=== PATIENT | female | born 1995 | race Caucasian/White ===

== ENCOUNTER 2022-09-17 12:40 | Outpatient (OUT) | payer OTHER, SELFPAY ==
--- NOTE | 2022-09-17 12:44 | US_ITS ---
[address] [address] Patient Name: ROSHNI ALEJANDRE MRN: [id number] date: 1995 Sex: F Assigned Patient Location: US Current Patient Location: US Accession/Order Number: [id number] Exam Date: 09/17/2022 12:43 Report Date: 09/17/2022 17:35 At the request of: OTIS THOMPSON Procedure: US OB transvaginal EXAMINATION: US OB transvaginal HISTORY: MISSED PERIOD COMPARISON: No relevant comparison available. FINDINGS: Transvaginal images Muir intrauterine gestation Gestational sac: 3.6 cm, 8 weeks 6 days CRL: 1.7 cm, 8 weeks 1 day Yolk sac: 3.9 mm Heart rate: 160 bpm Cervix: 4.5 cm, closed The uterus is normal, anteverted, anteflexed The ovaries are normal in appearance Clinical age: 8 weeks 1 day Clinical QUINN: 04/28/2023 Ultrasound age: 8 weeks 1 day Ultrasound QUINN: 04/28/2023 IMPRESSION: Viable muir intrauterine gestation measuring 8 weeks 1 day Electronically authenticated by: LEANDRA BUSTOS Date: 09/17/2022 17:35
== END 2022-09-17 12:41 ==
LOC: US 12:40
PROVIDERS: Visit Provider Obstetrics & Gynecology
DX: Z34.91 Encounter for supervision of normal pregnancy, unspecified, first trimester (principal)
CPT/HCPCS: 76817

== ENCOUNTER 2022-10-02 12:41 | Outpatient (OUT) | payer OTHER, SELFPAY ==
[2022-10-02 13:15] LABS: Basophils Percent Auto 0.4 % (0.2-2.0); Eosinophils Absolute Auto 0.1 10^3/uL (0.0-0.7); Eosinophils Percent Auto 1.1 % (0.9-7.0); Hematocrit 38.2 % (36.0-48.0); Hemoglobin 12.6 g/dL (12.0-16.0); Immature Granulocytes Abs Auto 0.02 10^3/uL (0.00-0.03); Immature Granulocytes Pct Auto 0.2 % (0.0-0.5); Mean Corpuscular Hemoglobin 28.2 pg (26.7-34.0); Mean Corpuscular Volume 85.5 fL (81.0-99.0); Mean Platelet Volume 10.1 fL (9.5-13.5); Monocytes Absolute Auto 0.5 10^3/uL (0.3-0.8); Monocytes Percent Auto 5.6 % (1.7-12.0); Neutrophils Absolute Auto 5.6 10^3/uL (1.4-6.5); Neutrophils Percent Auto 68.7 % (43.0-75.0); Platelet Count 202 10^3/uL (150-450); Red Blood Count 4.47 10^6/uL (4.20-5.40); Red Cell Distribution Width 13.2 % (11.0-15.0); White Blood Count 8.2 10^3/uL (4.0-11.0)
[2022-10-02 13:28] LABS: BOX Test Sent Out YES
[2022-10-02 13:34] LABS: Estimated Average Glucose 100 mg/dL; Glycohemoglobin A1C 5.1 % (4.5-6.2)
[2022-10-03 05:07] LABS: HCV Ab Non Reactive (Non Reactive); HIV Ab/p24 Ag Screen Non Reactive (Non Reactive); Rubella Antibodies, IgG 1.16 index (Immune >0.99)
[2022-10-03 06:08] LABS: HBsAg Screen Negative (Negative)
[2022-10-03 10:08] LABS: Rapid Plasma Reagin, Quant Non Reactive (NonRea<1:1)
== END 2022-10-02 12:42 | disposition home or self-care (01) ==
PROVIDERS: Visit Provider Obstetrics & Gynecology
DX: Z34.80 Encounter for supervision of other normal pregnancy, unspecified trimester (principal)
CPT/HCPCS: 36415; 83036; 84443; 85025; 86592; 86762; 86803; 86850; 86900; 86901; 87086; 87340; 87389

== ENCOUNTER 2022-10-08 09:24 | Outpatient (REF) | payer OTHER, SELFPAY | END 2022-10-08 09:25 | disposition home or self-care (01) | LOC: LAB 09:24 | PROVIDERS: Visit Provider Obstetrics & Gynecology | DX: Z34.80 Encounter for supervision of other normal pregnancy, unspecified trimester (principal) | CPT/HCPCS: 87086; 87150; 87186 ==

== ENCOUNTER 2022-11-10 20:00 | Outpatient (REF) | payer OTHER, SELFPAY ==
[2022-11-16 11:08] LABS: Age Gdln ACOG Testing Note (.); IGP, rfx Aptima HPV ASCU Note (.)
== END 2022-11-10 20:01 | disposition home or self-care (01) ==
LOC: LAB 20:00
PROVIDERS: Visit Provider Physician Assistant
DX: Z01.419 Encounter for gynecological examination (general) (routine) without abnormal findings (principal)
CPT/HCPCS: G0145

== ENCOUNTER 2022-12-09 09:32 | Outpatient (OUT) | payer OTHER, SELFPAY ==
--- NOTE | 2022-12-09 09:35 | US_ITS ---
[address] [address] Patient Name: ROSHNI ALEJANDRE MRN: [id number] date: 1995 Sex: F Assigned Patient Location: US Current Patient Location: Accession/Order Number: [id number] Exam Date: 12/09/2022 09:36 Report Date: 12/09/2022 16:46 At the request of: OTIS THOMPSON Procedure: US OB anatomy EXAMINATION: US OB anatomy HISTORY: ANATOMY COMPARISON: No relevant comparison available. TECHNIQUE: Transabdominal sonographic examination was performed for obstetrical and evaluation. FINDINGS: Number: 1 Heart Rate: 169.0 bpm H.B. /min Amniotic Fluid Volume: Subjectively normal position: Breech presentation, longitudinal lie Placental Location: POSTERIOR antegrade 0. Placental edge 3.8 cm from the internal os Cervix Length: 4.7 cm, closed Normally visualized anatomy: Cerebellum, choroid plexus, cisterna magna, lateral cerebral ventricles, orbits, midline falx, hard palate, four-chamber heart, RVOT, LVOT, stomach, kidneys, bladder, umbilical cord insertion into the abdomen, three-vessel cord, cervical spine, thoracic spine, lumbar spine, sacral spine, right upper extremity, left upper extremity, right lower extremity, left lower extremity Suboptimally visualized anatomy: None Abnormal: Single echogenic cardiac focus BIOMETRY: BPD: 4.5 cm 19 weeks 5 days , 35% HC: 16.6 cm 19 weeks 2 days, 15% AC: 15.5 cm 20 weeks 5 days, 67% FL: 3.2 cm 20 weeks 0 days, 42% EFW:340.6 grams; 12 ounces, 59% FL/AC: 20.7 FL/BPD: 71.0 HC/AC: 1.1 GESTATIONAL AGE: Age by EDC: 20 weeks 0 days Age by current US: 20 weeks 0 days QUINN by current US: 04/28/2023 QUINN by EDC: 04/28/2023 US/US OB anatomy IMPRESSION: Single echogenic cardiac focus, nonspecific *Reference: [facility] Practice Guideline for the performance of Obstetric Ultrasound Examinations, January 03, 2007. Electronically authenticated by: LEANDRA BUSTOS Date: 12/09/2022 16:46
--- NOTE | 2022-12-09 09:35 | US_ITS ---
[address] [address] Patient Name: ROSHNI ALEJANDRE MRN: [id number] date: 1995 Sex: F Assigned Patient Location: US Current Patient Location: Accession/Order Number: [id number] Exam Date: 12/09/2022 09:36 Report Date: 12/09/2022 16:46 At the request of: OTIS THOMPSON Procedure: US OB cervical length EXAMINATION: US OB anatomy HISTORY: ANATOMY COMPARISON: No relevant comparison available. TECHNIQUE: Transabdominal sonographic examination was performed for obstetrical and evaluation. FINDINGS: Number: 1 Heart Rate: 169.0 bpm H.B. /min Amniotic Fluid Volume: Subjectively normal position: Breech presentation, longitudinal lie Placental Location: POSTERIOR antegrade 0. Placental edge 3.8 cm from the internal os Cervix Length: 4.7 cm, closed Normally visualized anatomy: Cerebellum, choroid plexus, cisterna magna, lateral cerebral ventricles, orbits, midline falx, hard palate, four-chamber heart, RVOT, LVOT, stomach, kidneys, bladder, umbilical cord insertion into the abdomen, three-vessel cord, cervical spine, thoracic spine, lumbar spine, sacral spine, right upper extremity, left upper extremity, right lower extremity, left lower extremity Suboptimally visualized anatomy: None Abnormal: Single echogenic cardiac focus BIOMETRY: BPD: 4.5 cm 19 weeks 5 days , 35% HC: 16.6 cm 19 weeks 2 days, 15% AC: 15.5 cm 20 weeks 5 days, 67% FL: 3.2 cm 20 weeks 0 days, 42% EFW:340.6 grams; 12 ounces, 59% FL/AC: 20.7 FL/BPD: 71.0 HC/AC: 1.1 GESTATIONAL AGE: Age by EDC: 20 weeks 0 days Age by current US: 20 weeks 0 days QUINN by current US: 04/28/2023 QUINN by EDC: 04/28/2023 US/US OB cervical length IMPRESSION: Single echogenic cardiac focus, nonspecific *Reference: [facility] Practice Guideline for the performance of Obstetric Ultrasound Examinations, January 03, 2007. Electronically authenticated by: LEANDRA BUSTOS Date: 12/09/2022 16:46
== END 2022-12-09 09:33 | disposition home or self-care (01) ==
LOC: US 09:32
PROVIDERS: Visit Provider Obstetrics & Gynecology
DX: Z36.89 Encounter for other specified antenatal screening (principal)
CPT/HCPCS: 76805; 76817

== ENCOUNTER 2023-01-06 09:31 | Outpatient (OUT) | payer OTHER, SELFPAY ==
--- NOTE | 2023-01-06 09:34 | US_ITS ---
[address] [address] Patient Name: ROSHNI ALEJANDRE MRN: [id number] date: 1995 Sex: F Assigned Patient Location: US Current Patient Location: Accession/Order Number: [id number] Exam Date: 01/06/2023 09:34 Report Date: 01/06/2023 19:55 At the request of: OTIS THOMPSON Procedure: US OB follow up EXAMINATION: US OB follow up HISTORY: ECHOGENIC FOCI IN HEART COMPARISON: 12/09/2022 FINDINGS: lie transverse, head to the maternal right Heart rate: 136 BPM HEART: Single cardiac focus again observed Gestational age: 24 weeks 0 days US/US OB follow up IMPRESSION: Single cardiac focus again observed Electronically authenticated by: LEANDRA BUSTOS Date: 01/06/2023 19:55
== END 2023-01-06 09:32 | disposition home or self-care (01) ==
LOC: US 09:31
PROVIDERS: Visit Provider Obstetrics & Gynecology
DX: Z36.2 Encounter for other antenatal screening follow-up (principal); Z3A.24 24 weeks gestation of pregnancy
CPT/HCPCS: 76816

== ENCOUNTER 2023-02-09 13:16 | Outpatient (OUT) | payer OTHER, SELFPAY ==
--- NOTE | 2023-02-09 13:19 | US_ITS ---
[address] [address] Patient Name: ROSHNI ALEJANDRE MRN: [id number] date: 1995 Sex: F Assigned Patient Location: US Current Patient Location: US Accession/Order Number: [id number] Exam Date: 02/09/2023 13:20 Report Date: 02/09/2023 16:52 At the request of: OTIS THOMPSON Procedure: US OB growth EXAMINATION: US OB growth HISTORY: SIZE INCONSISTENT WITH DATES COMPARISON: 01/06/2023 FINDINGS: Heart Rate: 126.0 bpm Amniotic Fluid Volume: 9.8 cm Number: 1.0 Position: CEPHALIC Maximum Vertical Pocket: 2.4 cm cm 3.0 cm cm 2.5 cm cm 2.0 cm cm BIOMETRY: BPD: 7.4 cm cm; 29 weeks 4 days; 60% HC: 26.9 cmcm; 29 weeks 2 days , 30% AC: 25.3 cm cm; 29 weeks 4 days, 64% FL: 5.3 cm cm; 28 weeks 1 days; 17.5 % % EFW: 1327.6 grams, 2 lbs. 15 oz., 44% FL/AC: 20.9 FL/BPD: 72.0 HC/AC: 1.1 Other: Single echogenic cardiac focus again observed GESTATIONAL AGE: Age by EDC: 28 weeks 6 days QUINN by EDC: 04/28/2023 Age by US: 29 weeks 1 day QUINN by US: 04/26/2023 US/US OB growth IMPRESSION: Stable single echogenic cardiac focus, nonspecific Borderline oligohydramnios Electronically authenticated by: LEANDRA BUSTOS Date: 02/09/2023 16:52
== END 2023-02-09 13:17 | disposition home or self-care (01) ==
LOC: US 13:16
PROVIDERS: Visit Provider Obstetrics & Gynecology
DX: O26.843 Uterine size-date discrepancy, third trimester (principal); O41.03X0 Oligohydramnios, third trimester, not applicable or unspecified; Z3A.28 28 weeks gestation of pregnancy
CPT/HCPCS: 76816

== ENCOUNTER 2023-03-06 10:29 | Outpatient (OUT) | payer OTHER, SELFPAY ==
--- NOTE | 2023-03-06 14:08 | US_ITS ---
[address] [address] Patient Name: ROSHNI ALEJANDRE MRN: [id number] date: 1995 Sex: F Assigned Patient Location: [facility] Current Patient Location: [facility] Accession/Order Number: [id number] Exam Date: 03/06/2023 14:10 Report Date: 03/07/2023 03:32 At the request of: GONZALO WARD Procedure: US OB growth EXAMINATION: US OB growth HISTORY: size inconsistent with dates COMPARISON: Ultrasound OB growth 02/09/2023 FINDINGS: Heart Rate: 131.7 bpm Number: 1.0 Position: Cephalic Amniotic Fluid Volume: 7.5 cm (below 5th percentile) Maximum Vertical Pocket: 3.0 cm BIOMETRY: BPD: 8.2 cm cm; 33 weeks 1 days; 63% HC: 30.1 cmcm; 33 weeks 2 days ; 36% AC: 29.0 cm cm; 33 weeks 0 days; 67% FL: 5.9 cm cm; 30 weeks 5 days; 6% EFW: 1966.2 grams; 39% FL/AC: 20.4 FL/BPD: 71.7 HC/AC: 1.0 GESTATIONAL AGE: Age by EDC: 32 weeks 3 days QUINN by EDC: 04/28/2023 Age by US: 32 weeks 4 days QUINN by US: 04/27/2023 US/US OB growth IMPRESSION: 1. Single live intrauterine with growth detailed above. 2. Oligohydramnios. Electronically authenticated by: JASE JONES Date: 03/07/2023 03:32
--- NOTE | 2023-03-06 14:08 | US_ITS ---
[address] [address] Patient Name: ROSHNI ALEJANDRE MRN: [id number] date: 1995 Sex: F Assigned Patient Location: [facility] Current Patient Location: Accession/Order Number: [id number] Exam Date: 03/06/2023 14:10 Report Date: 03/07/2023 03:29 At the request of: GONZALO WARD Procedure: US OB BPP w non-stress EXAMINATION: US OB BPP w non-stress HISTORY: size inconsistent with dates COMPARISON: Ultrasound OB growth 02/09/2023 TECHNIQUE: Ultrasound biophysical profile was performed in the radiology department. BREATHING MOVEMENTS: 2.0 GROSS BODY MOVEMENTS: 2.0 TONE: 2.0 QUALITATIVE AMNIOTIC FLUID VOLUME: 2.0 PRESENTATION: Cephalic HEART RATE: 131.7 bpm bpm. AMNIOTIC FLUID VOLUME: 7.5 cm (below 5th percentile) GESTATIONAL AGE: 32 weeks 3 days CONCLUSION: 1. Total biophysical profile score 8.0. 2. Oligohydramnios. Electronically authenticated by: JASE JONES Date: 03/07/2023 03:29
[2023-03-06 14:40] VITALS: BP 122/83; PULSE 68
[2023-03-06 15:20] LABS: Amnisure NEGATIVE (NEGATIVE)
== END 2023-03-06 15:30 | disposition home or self-care (01) ==
LOC: FBCO 10:31 → FBC 14:09
PROVIDERS: Visit Provider Obstetrics & Gynecology
DX: O41.03X1 Oligohydramnios, third trimester, fetus 1 (principal); Z3A.32 32 weeks gestation of pregnancy
CPT/HCPCS: 76816; 76818; 84112

== ENCOUNTER 2023-03-10 07:44 | Outpatient (RCR) | payer OTHER, SELFPAY ==
[2023-03-09 16:07] LABS: Basophils Percent Auto 0.5 % (0.2-2.0); Eosinophils Percent Auto 0.2 % (0.9-7.0); Hematocrit 36.7 % (36.0-48.0); Immature Granulocytes Abs Auto 0.01 10^3/uL (0.00-0.03); Immature Granulocytes Pct Auto 0.2 % (0.0-0.5); Lymphocytes Absolute Auto 0.6 10^3/uL (1.2-3.8); Lymphocytes Percent Auto 13.1 % (20.5-60.0); Mean Corpuscular HGB Conc 32.7 g/dL (29.9-35.2); Mean Corpuscular Hemoglobin 27.4 pg (26.7-34.0); Mean Corpuscular Volume 83.8 fL (81.0-99.0); Mean Platelet Volume 10.8 fL (9.5-13.5); Monocytes Absolute Auto 0.5 10^3/uL (0.3-0.8); Monocytes Percent Auto 12.2 % (1.7-12.0); Neutrophils Absolute Auto 3.1 10^3/uL (1.4-6.5); Neutrophils Percent Auto 73.8 % (43.0-75.0); Platelet Count 165 10^3/uL (150-450); Red Blood Count 4.38 10^6/uL (4.20-5.40); Red Cell Distribution Width 12.1 % (11.0-15.0); White Blood Count 4.2 10^3/uL (4.0-11.0)
[2023-03-09 16:43] LABS: Estimated Average Glucose 103 mg/dL; Glycohemoglobin A1C 5.2 % (4.5-6.2)
[2023-03-10 10:06] VITALS: BP 123/77; PULSE 82; RESP 18; TEMP 36.7; O2SAT 100
[2023-03-10] MEDS: RHO(D) IMMUNE GLOBULIN 1,500 UNIT SYRINGE 1500 UNIT IM (10:17)
== END 2023-03-10 10:24 | disposition home or self-care (01) ==
LOC: INF 07:44
PROVIDERS: Visit Provider Obstetrics & Gynecology
DX: O26.893 Other specified pregnancy related conditions, third trimester (principal); Z67.91 Unspecified blood type, Rh negative; Z3A.00 Weeks of gestation of pregnancy not specified
CPT/HCPCS: 36415; 83036; 85025; 86850; 86900; 86901; 96372; J2790

== ENCOUNTER 2023-03-11 07:04 | Outpatient (OUT) | payer OTHER, SELFPAY ==
[2023-03-11 13:09] VITALS: BP 109/65; PULSE 80
--- NOTE | 2023-03-11 13:14 | US_ITS ---
[address] [address] Patient Name: ROSHNI ALEJANDRE MRN: [id number] date: 1995 Sex: F Assigned Patient Location: [facility] Current Patient Location: [facility] Accession/Order Number: [id number] Exam Date: 03/11/2023 13:20 Report Date: 03/11/2023 14:25 At the request of: OTIS THOMPSON Procedure: US OB amniotic fluid vol EXAMINATION: US OB amniotic fluid vol HISTORY: Previous low ANGELICA 7.9 COMPARISON: No relevant comparison available. FINDINGS: position: Cephalic Amniotic fluid volume: 10.4 cm, within normal limits Largest fluid pocket: 3.4 cm Heart rate: 162 bpm US/US OB amniotic fluid vol IMPRESSION: Normal amniotic fluid index Electronically authenticated by: LEANDRA BUSTOS Date: 03/11/2023 14:25
== END 2023-03-11 14:00 | disposition home or self-care (01) ==
LOC: FBCO 07:04 → FBC 13:02
PROVIDERS: Visit Provider Obstetrics & Gynecology
DX: Z34.93 Encounter for supervision of normal pregnancy, unspecified, third trimester (principal)
CPT/HCPCS: 76815

== ENCOUNTER 2023-03-17 07:08 | Outpatient (OUT) | payer OTHER, SELFPAY ==
[2023-03-17 13:27] VITALS: BP 130/75; PULSE 77
--- OUTSIDE RECORDS SUMMARY | 2023-03-24 05:47 | XMS_ITS | CCD ---
Author Name Unknown Address [id number] [place] [address] [facility] Care Team Providers [employer] Supervisor Name Role Phone NATALIIA, DR EPPERSON Attending Unavailable KARASIK, DR EPPERSON Admitting Unavailable MISC, DR BRIDGES Primary Care Unavailable KARASIK, DR EPPERSON Consulting Unavailable KARASIK, DR EPPERSON Admitting Unavailable MISC, DR BRIDGES Primary Care Unavailable KARASIK, DR EPPERSON Attending Unavailable ZIEBER, DR JASE Kenney Consulting Unavailable KARASIK, DR EPPERSON Attending Unavailable KARASIK, DR EPPERSON Consulting Unavailable KARASIK, DR EPPERSON Admitting Unavailable MISC, DR BRIDGES Primary Care Unavailable JULI, DR LEANDRA Whipple Consulting Unavailable MISC, DR BRIDGES Primary Care Unavailable DONNA, DR BERG Attending Unavailable DONNA, DR BERG Consulting Unavailable DONNA, DR BERG Admitting Unavailable DONNA, DR BERG Admitting Unavailable MISC, DR BRIDGES Primary Care Unavailable JULI, DR LEANDRA Whipple Consulting Unavailable DONNA, DR BERG Attending Unavailable DONNA, DR BERG Consulting Unavailable KARASIK, DR EPPERSON Admitting Unavailable KARASIK, DR EPPERSON Attending Unavailable MISC, DR BRIDGES Primary Care Unavailable KARASIK, DR EPPERSON Attending Unavailable KARASIK, DR EPPERSON Admitting Unavailable MISC, DR BRIDGES Primary Care Unavailable DONNA, DR BERG Attending Unavailable JULI, DR LEANDRA Whipple Consulting Unavailable HOY, DR CASILLAS Primary Care Unavailable DONNA, DR BERG Admitting Unavailable DONNA, DR BERG Consulting Unavailable DONNA, DR BERG Attending Unavailable HOY, DR CASILLAS Primary Care Unavailable DONNA, DR BERG Consulting Unavailable DONNA, DR BERG Admitting Unavailable DONNA, DR BERG Admitting Unavailable HOY, DR CASILLAS Primary Care Unavailable DONNA, DR BERG Attending Unavailable MISC, DR BRIDGES Primary Care Unavailable DONNA, DR BERG Attending Unavailable PILAR, JOI R Referring Unavailable DONNA, DR BERG Admitting Unavailable DONNA, DR BERG Admitting Unavailable MISC, DR BRIDGES Primary Care Unavailable DONNA, DR BERG Consulting Unavailable DONNA, DR BERG Attending Unavailable DONNA, DR BERG Attending Unavailable HOY, DR CASILLAS Primary Care Unavailable DONNA, DR BERG Consulting Unavailable DONNA, DR BERG Admitting Unavailable ZIEBER, DR JASE Kenney Consulting Unavailable DONNA, DR BERG Admitting Unavailable MISC, DR BRIDGES Primary Care Unavailable DONNA, DR BERG Consulting Unavailable DONNA, DR BERG Attending Unavailable Cardoso, Nicole Consulting Unavailable KARASIK, DR EPPERSON Attending Unavailable KARASIK, DR EPPERSON Admitting Unavailable MISC, DR BRIDGES Primary Care Unavailable KARASIK, DR EPPERSON Attending Unavailable KARASIK, DR EPPERSON Consulting Unavailable KARASIK, DR EPPERSON Admitting Unavailable MISC, DR BRIDGES Primary Care Unavailable DONNA, DR BERG Attending Unavailable WEST, DR LEANDRA Whipple Consulting Unavailable REQUEST, DR RAMOS LISTED Primary Care Unavaila ble DONNA, DR BERG Admitting Unavailable DONNA, DR BERG Consulting Unavailable DONNA, DR BERG Admitting Unavailable MISC, DR BRIDGES Primary Care Unavailable DONNA, DR BERG Attending Unavailable KARASIK, DR EPPERSON Attending Unavailable KARASIK, DR EPPERSON Admitting Unavailable MISC, DR BRIDGES Primary Care Unavailable DONNA, DR BERG Consulting Unavailable HOY, DR CASILLAS Primary Care Unavailable DONNA, DR BERG Admitting Unavailable DONNA, DR BERG Attending Unavailable DONNA, DR BERG Consulting Unavailable MISC, DR BRIDGES Primary Care Unavailable DONNA, DR BERG Attending Unavailable DONNA, DR BERG Admitting Unavailable AGUBOSIM, FRANCO Consulting Unavailable DONNA, DR BERG Procedure Practitioner Unavailab le KARASIK, DR EPPERSON Admitting Unavailable KARASIK, DR EPPERSON Attending Unavailable MISC, DR BRIDGES Primary Care Unavailable DONNA, DR BERG Attending Unavailable HOY, DR CASILLAS Primary Care Unavailable DONNA, DR BERG Consulting Unavailable DONNA, DR BERG Admitting Unavailable DR ZAC DOCTOR Primary Care Unavailable DR OTIS THOMPSON Attending Unavailable DR OTIS THOMPSON Consulting Unavailable DR OTIS THOMPSON Admitting Unavailable OTIS THOMPSON Attending Unavailable Problems Active Problems Problem Classification Problem Date Documented Date Episodic/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 (1 source) Other specified trauma to perineum and vulva; Translations: [OTHER SPEC TRAUMA PERINEUM AND VULVA] Onset: 07-14-2021 Episodic Other aftercare (1 source) Other alf (current) drug therapy; Translations: [OTH SENIOR LIVING CURRENT DRUG THERAPY] Onset: 07-14-2021 Episodic Other complications of ; puerperium affecting management of mother (3 sources) Streptococcus B carrier state complicating childbirth; Translations: [STREP B ZHAO STATE COMP CHILDBIRTH] Onset: 07-01-2021 Episodic Other complications of (4 sources) Other specified related conditions, unspecified trimester; Translations: [OTH SPEC PREG RELATED COND UNS TRI] Onset: 05-16-2021 Episodic Other complications of (4 sources) Other specified related conditions, third trimester; Translations: [OTH SPEC PREG RELATED COND 3RD TRI] Onset: 05-09-2021 Episodic Other female genital disorders (5 sources) Other specified noninflammatory disorders of vagina; Translations: [OTH SPEC NONINFLAMMATORY D/O VAGINA] Onset: 03-08-2021 Episodic Other and delivery including normal (6 sources) Single live ; Translations: [Encounter for test, result positive] Onset: 12-27-2020 Episodic Other screening for suspected conditions (not mental disorders or infectious disease) (15 sources) Encounter for screening for Streptococcus B; Translations: [Encounter for screening for diabetes mellitus] Onset: 01-09-2021 Episodic Residual codes; unclassified (1 source) 37 weeks gestation of ; Translations: [37 WEEKS GESTATION OF ] Onset: 07-14-2021 Episodic Residual codes; unclassified (1 source) 34 weeks gestation of ; Translations: [34 WEEKS GESTATION OF ] Onset: 06-12-2021 Episodic Residual codes; unclassified (1 source) Unspecified blood type, Rh negative; Translations: [UNSPECIFIED BLOOD TYPE RH NEGATIVE] Onset: 05-21-2021 Episodic Residual codes; unclassified (1 source) Weeks of gestation of not specified; Translations: [WEEKS GESTATION NOT SPEC] Onset: 05-21-2021 Episodic Residual codes; unclassified (1 source) 30 weeks gestation of ; Translations: [30 WEEKS GESTATION OF ] Onset: 05-14-2021 Episodic Residual codes; unclassified (1 source) 29 weeks gestation of ; Translations: [29 WEEKS GESTATION OF ] Onset: 05-09-2021 Episodic Substance-related disorders (3 sources) Opioid dependence, in remission; Translations: [Opioid abuse, uncomplicated] Onset: 06-12-2021 Chronic Substance-related disorders (6 sources) Drug use complicating childbirth; Translations: [Cannabis use, unspecified, uncomplicated] Onset: 06-25-2021 Episodic Unclassified (1 source) CONTACT W/AND (SUSP) EXPOS COVID-19; Translations: [CONTACT W/AND (SUSP) EXPOS COVID-19] Onset: 07-14-2021 Past or Other Problems Problem Classification Problem Date Documented Date Episodic/Chronic Hemorrhage during ; abruptio placenta; placenta previa (2 sources) Antepartum hemorrhage, unspecified, unspecified trimester; Translations: [Low lying placenta NOS or without hemorrhage, second trimester] Onset: 03-08-2021 Episodic Immunizations and screening for infectious disease (6 sources) Encounter for screening for human papillomavirus (HPV); Translations: [Encounter for screening for infections with a predominantly sexual mode of transmission] Onset: 12-27-2020 Episodic Other complications of (4 sources) Supervision of with other poor reproductive or obstetric history, unspecified trimester; Translations: [SUP PG OTH POOR REPROD/OB HX UNS TM] Onset: 04-01-2021 Episodic Residual codes; unclassified (1 source) 19 weeks gestation of ; Translations: [19 WEEKS GESTATION OF ] Onset: 03-08-2021 Episodic Results Test Name Value Interpretation Reference Range Facil ity CANNABINOID (THC) CONFIRMATI ON, URINEon 07-14-2021 Cannabinoid Positive Abnormal [facility] Comment on above: Performed By: #### C T/GHANSHYAMNA #### [facility] [address] [place] [address] Dr. Kamaljit Spears THC GC/MS Conf >750 Normal Cutoff=10 Th e [facility] Comment on above: Performed By: #### C T/NGNA #### [facility] [address] [place] [address] Dr. Kamaljit Reich ANTIBODY ID PANELon 07-07-19 ANTIBODY ID PANEL Antibody ID Anti-D Normal [facility] Comment on above: Performed By: #### A BID #### [facility] [address] [place] [address] Dr. Kamajlit Reich CBC AUTO DIFFon 07-02-2021 BASO # 0.0 103/ul Normal 0.0-0.1 [facility] Comment on above: Performed By: #### A 1C #### [facility] [address] [place] [address] Dr. Kamaljit Reich Basophils/100 WBC (Bld) 0.3 % Normal 0.2-2.0 [facility] Comment on above: Performed By: #### A 1C #### [facility] [address] [place] [address] Dr. Kamaljit Reich EO # 0.1 103/ul Normal 0.0-0.7 [facility] Comment on above: Performed By: #### A 1C #### [facility] [address] [place] [address] Dr. Kamaljit Reich Eosinophils/100 WBC (Bld) 0.5 % Critically low 0.9-7. 0 [facility] Comment on above: Performed By: #### A 1C #### [facility] [address] [place] [address] Dr. Kamaljit Reich Erythrocyte distribution wid th (RBC) [Ratio] 12.2 % Normal 11.0-15.0 [facility] Comment on above: Performed By: #### A 1C #### [facility] [address] [place] [address] Dr. Kamaljit Reich Hematocrit (Bld) [Volume fraction] 38.6 % Normal 3 6.0-48.0 [facility] Comment on above: Performed By: #### A 1C #### [facility] [address] [place] [address] Dr. Kamaljit Reich Hemoglobin (Bld) [Mass/Vol] 12.5 g/dL Normal 12.0-16. 0 [facility] Comment on above: Performed By: #### A 1C #### [facility] [address] [place] [address] Dr. Kamaljit Reich IG # 0.06 10e3/ul Critically high 0.00-0.03 [facility] Comment on above: Performed By: #### A 1C #### [facility] [address] [place] [address] Dr. Kamaljit Reich IG % 0.5 % Normal 0.0-0.5 [facility] Comment on above: Performed By: #### A 1C #### [facility] [address] [place] [address] Dr. Kamaljit Reich LYMPH # 1.2 103/ul Normal 1.2-3.8 [facility] Comment on above: Performed By: #### A 1C #### [facility] [address] [place] [address] Dr. Kamaljit Reich Lymphocytes/100 WBC (Bld) 9.8 % Critically low 20.5-6 0.0 [facility] Comment on above: Performed By: #### A 1C #### [facility] [address] [place] [address] Dr. Kamaljit Reich MANUAL DIFF REQ NO Normal [facility] Comment on above: Performed By: #### A 1C #### [facility] [address] [place] [address] Dr. Kamaljit Reich MCH (RBC) [Entitic mass] 28.2 pg Normal 26.7-34.0 [facility] Comment on above: Performed By: #### A 1C #### [facility] [address] [place] [address] Dr. Kamaljit Reich MCHC (RBC) [Mass/Vol] 32.4 g/dL Normal 29.9-35.2 [facility] Comment on above: Performed By: #### A 1C #### [facility] [address] [place] [address] Dr. Kamaljit Reich MCV (RBC) [Entitic vol] 87.1 fL Normal 81.0-99.0 [facility] Comment on above: Performed By: #### A 1C #### [facility] [address] [place] [address] Dr. Kamaljit Reich MONO # 0.8 103/ul Normal 0.3-0.8 [facility] Comment on above: Performed By: #### A 1C #### [facility] [address] [place] [address] Dr. Kamaljit Reich Monocytes/100 WBC (Bld) 6.1 % Normal 1.7-12.0 [facility] Comment on above: Performed By: #### A 1C #### [facility] [address] [place] [address] Dr. Kamaljit Reich NEUT # 10.2 103/ul Critically high 1.4-6.5 [facility] Comment on above: Performed By: #### A 1C #### [facility] [address] [place] [address] Dr. Kamaljit Reich Neutrophils/100 WBC (Bld) 82.8 % Critically high 43.0- 75.0 [facility] Comment on above: Performed By: #### A 1C #### [facility] [address] [place] [address] Dr. Kamaljit Reich Platelet mean volume (Bld) [ Entitic vol] 10.5 fL Normal 9.5-13.5 [facility] Comment on above: Performed By: #### A 1C #### [facility] [address] [place] [address] Dr. Kamaljit Reich PLT 214 103/ul Normal 150-450 [facility] Comment on above: Performed By: #### A 1C #### [facility] [address] [place] [address] Dr. Kamaljit Reich RBC 4.43 106/ul Normal 4.20-5.40 [facility] Comment on above: Performed By: #### A 1C #### [facility] [address] [place] [address] Dr. Kamaljit Reich WBC 12.3 103/ul Critically high 4.0-11.0 [facility] Comment on above: Performed By: #### A 1C #### [facility] [address] [place] [address] Dr. Kamaljit Reich CBC AUTO DIFFon 07-01-2021 BASO # 0.0 103/ul Normal 0.0-0.1 [facility] Comment on above: Performed By: #### A 1C #### [facility] [address] [place] [address] Dr. Kamaljit Reich Basophils/100 WBC (Bld) 0.2 % Normal 0.2-2.0 [facility] Comment on above: Performed By: #### A 1C #### [facility] [address] [place] [address] Dr. Kamaljit Reich EO # 0.0 103/ul Normal 0.0-0.7 [facility] Comment on above: Performed By: #### A 1C #### [facility] [address] [place] [address] Dr. Kamaljit Reich Eosinophils/100 WBC (Bld) 0.5 % Critically low 0.9-7. 0 [facility] Comment on above: Performed By: #### A 1C #### [facility] [address] [place] [address] Dr. Kamaljit Reich Erythrocyte distribution wid th (RBC) [Ratio] 12.4 % Normal 11.0-15.0 [facility] Comment on above: Performed By: #### A 1C #### [facility] [address] [place] [address] Dr. Kamaljit Reich Hematocrit (Bld) [Volume fraction] 38.8 % Normal 3 6.0-48.0 [facility] Comment on above: Performed By: #### A 1C #### [facility] [address] [place] [address] Dr. Kamaljit Reich Hemoglobin (Bld) [Mass/Vol] 12.8 g/dL Normal 12.0-16. 0 [facility] Comment on above: Performed By: #### A 1C #### [facility] [address] [place] [address] Dr. Kamaljit Reich IG # 0.02 10e3/ul Normal 0.00-0.03 [facility] Comment on above: Performed By: #### A 1C #### [facility] [address] [place] [address] Dr. Kamaljit Reich IG % 0.2 % Normal 0.0-0.5 [facility] Comment on above: Performed By: #### A 1C #### [facility] [address] [place] [address] Dr. Kamaljit Reich LYMPH # 1.4 103/ul Normal 1.2-3.8 [facility] Comment on above: Performed By: #### A 1C #### [facility] [address] [place] [address] Dr. Kamaljit Reich Lymphocytes/100 WBC (Bld) 15.6 % Critically low 20.5-6 0.0 [facility] Comment on above: Performed By: #### A 1C #### [facility] [address] [place] [address] Dr. Kamaljit Reich MANUAL DIFF REQ NO Normal [facility] Comment on above: Performed By: #### A 1C #### [facility] [address] [place] [address] Dr. Kamaljit Reich MCH (RBC) [Entitic mass] 27.7 pg Normal 26.7-34.0 [facility] Comment on above: Performed By: #### A 1C #### [facility] [address] [place] [address] Dr. Kamaljit Reich MCHC (RBC) [Mass/Vol] 33.0 g/dL Normal 29.9-35.2 [facility] Comment on above: Performed By: #### A 1C #### [facility] [address] [place] [address] Dr. Kamaljit Reich MCV (RBC) [Entitic vol] 84.0 fL Normal 81.0-99.0 [facility] Comment on above: Performed By: #### A 1C #### [facility] [address] [place] [address] Dr. Kamaljit Reich MONO # 0.4 103/ul Normal 0.3-0.8 [facility] Comment on above: Performed By: #### A 1C #### [facility] [address] [place] [address] Dr. Kamaljit Reich Monocytes/100 WBC (Bld) 5.0 % Normal 1.7-12.0 [facility] Comment on above: Performed By: #### A 1C #### [facility] [address] [place] [address] Dr. Kamaljit Reich NEUT # 7.0 103/ul Critically high 1.4-6.5 [facility] Comment on above: Performed By: #### A 1C #### [facility] [address] [place] [address] Dr. Kamaljit Reich Neutrophils/100 WBC (Bld) 78.5 % Critically high 43.0- 75.0 [facility] Comment on above: Performed By: #### A 1C #### [facility] [address] [place] [address] Dr. Kamaljit Reich Platelet mean volume (Bld) [ Entitic vol] 10.7 fL Normal 9.5-13.5 [facility] Comment on above: Performed By: #### A 1C #### [facility] [address] [place] [address] Dr. Kamaljit Reich PLT 228 103/ul Normal 150-450 [facility] Comment on above: Performed By: #### A 1C #### [facility] [address] [place] [address] Dr. Kamaljit Reich RBC 4.62 106/ul Normal 4.20-5.40 [facility] Comment on above: Performed By: #### A 1C #### [facility] [address] [place] [address] Dr. Kamaljit Reich WBC 8.9 103/ul Normal 4.0-11.0 [facility] Comment on above: Performed By: #### A 1C #### [facility] [address] [place] [address] Dr. Kamaljit Reich [facility] SARS-CoV-2 (COVID-19) RNA NELY+probe Ql (Unsp spec) Not detected Normal NOT DETECTED [facility] Comment on above: Result Comment: When diagnostic testing is negative, the possibility of a false negative should be considered in the context of a patient's recent exposures and the presence of clinical signs and symptoms consistent with SARS-CoV-2. This test is not yet approved or cleared by the [place] FDA. When there are no FDA-approved or cleared tests available, and other criteria are met, FDA can make tests available under an emergency access mechanism called an Emergency Use Authorization (EUA). The EUA for this test is supported by the [place] of Health and Human Service's declaration that circumstances exist to justify the emergency use of in vitro diagnostics for the detection and/or diagnosis of the virus that causes COVID-19. This EUA will remain in effect for the duration of the COVID-19 declaration justifying emergency of IVDs, unless it is terminated or revoked by the FDA (after which the test may no longer be used). Performed By: #### R PRQ #### [facility] [address] [place] [address] Dr. Kamaljit Reich DRUG SCREEN RAPID (URINE)on 07-01-2021 AMP Negative Normal NEGATIVE [facility] Comment on above: Performed By: #### A 1C #### [facility] [address] [place] [address] Dr. Kamaljit Reich BAR Negative Normal NEGATIVE [facility] Comment on above: Performed By: #### A 1C #### [facility] [address] [place] [address] Dr. Kamaljit Reich BUP Positive Abnormal NEGATIVE [facility] Comment on above: Performed By: #### A 1C #### [facility] [address] [place] [address] Dr. Kamaljit Reich BZO Negative Normal NEGATIVE [facility] Comment on above: Performed By: #### A 1C #### [facility] [address] [place] [address] Dr. Kamaljit Reich NOEMI Negative Normal NEGATIVE [facility] Comment on above: Performed By: #### A 1C #### [facility] [address] [place] [address] Dr. Kamaljit Reich CUT-OFFS SEE BELOW Normal [facility] Comment on above: Result Comment: AMP (Amphetamine): 500ng/mL, BAR (Barbituates): 200 ng/mL, BZO (Benzodiazepines): 150 ng/mL, BUP (Buprenorphine): 10 ng/mL, NOEMI (Cocaine): 150 ng/mL, mAMP (Methamphetamine): 500 ng/mL, MTD (Methadone): 200 ng/mL, OPI (Opiates): 100 ng/mL, OXY (Oxycodone): 100 ng/mL, PCP (Phencyclidine): 25 ng/mL, PPX (Propoxyphene): 300 ng/mL, THC (Cannabinoids): 50 ng/mL, TCA (Trycyclic Antidepressants): 300 ng/mL Performed By: #### A 1C #### [facility] [address] [place] [address] Dr. Kamaljit Reich DRUG CUT HEADER DRUG CLASS TEST SYST EM CUT-OFF CONCENTRATIONS ARE FOLLOWS: Normal [facility] Comment on above: Performed By: #### A 1C #### [facility] [address] [place] [address] Dr. Kamaljit Reich mAMP Negative Normal NEGATIVE [facility] Comment on above: Performed By: #### A 1C #### [facility] [address] [place] [address] Dr. Kamaljit Reich MTD Negative Normal NEGATIVE [facility] Comment on above: Performed By: #### A 1C #### [facility] [address] [place] [address] Dr. Kamaljit Reich OPI Negative Normal NEGATIVE [facility] Comment on above: Performed By: #### A 1C #### [facility] [address] [place] [address] Dr. Kamaljit Reich OXY Negative Normal NEGATIVE [facility] Comment on above: Performed By: #### A 1C #### [facility] [address] [place] [address] Dr. Kamaljit Reich PCP Negative Normal NEGATIVE [facility] Comment on above: Performed By: #### A 1C #### [facility] [address] [place] [address] Dr. Kamaljit Reich PPX Negative Normal NEGATIVE [facility] Comment on above: Performed By: #### A 1C #### [facility] [address] [place] [address] Dr. Kamaljit Reich TCA Negative Normal NEGATIVE [facility] Comment on above: Performed By: #### A 1C #### [facility] [address] [place] [address] Dr. Kamaljit Reich THC Positive Abnormal NEGATIVE [facility] Comment on above: Performed By: #### A 1C #### [facility] [address] [place] [address] Dr. Kamaljit Reich TYPE AND SCREENon 07-01-2021 TYPE AND SCREEN Negative Normal [facility] Comment on above: Performed By: #### T NS #### [facility] [address] [place] [address] Dr. Kamaljit Reich GROUP B STREP CULTUREon 06-04 S. agalactiae Ag Ql (Unsp spec) Culture Observations: Group B Strep called to Syeda Peguero LPN at office 0856 06/30/21 bl Isolate 1 Streptococcus agalactiae Moderate growth of ORGANISM 1 Streptococcus agalactiae ANTIBIOTIC M.I.C RX STATUS Benzylpenicillin <=0.06 S F Ampicillin <=0.25 S F Cefotaxime <=0.12 S F Ceftriaxone <=0.12 S F Levofloxacin 0.5 S F Inducible Clindamycin Resistance Neg NEG F Erythromycin 4 R F Clindamycin >=1 R F Linezolid <=2 S F Vancomycin 0.5 S F Tetracycline >=16 R F Normal The [facility] Comment on above: Performed By: #### R PRQ #### [facility] [address] [place] [address] Dr. Kamaljit Reich US PREG AMNIOTIC FLUID VOLUM Eliezer 06-25-2021 PREG AMNIOTIC FLUID VOLUME EXAMINATION: US PREG AMNIOTIC FLUID VOLUME HISTORY: Opioid abuse COMPARISON: Ultrasound amniotic fluid volumes 06/11/2021 TECHNIQUE: Limited sonographic examination for amniotic fluid volume FINDINGS: Presentation: Cephalic ANGELICA: 15.7 cm (between fifth and 95th percentile) Heart rate: 127 bpm Gestational age: 36 weeks, 4 days QUINN: 07/19/2021 IMPRESSION: 1. Single live intrauterine . 2. Normal amniotic fluid index; not significantly changed. Electronically authenticated by: JASE JONES Date: 2021-06-25 11:28 Normal The [facility] l US PREG AMNIOTIC FLUID VOLUM Eliezer 06-11-2021 US PREG AMNIOTIC FLUID VOLUME EXAMINATION: US PREG AMNIOTIC FLUID VOLUME HISTORY: Drug abuse COMPARISON: 05/12/2021 TECHNIQUE: Limited sonographic examination for amniotic fluid volume FINDINGS: position: Cephalic presentation, longitudinal lie Amniotic fluid volume: 16.3 cm, normal. Largest pocket 7.5 cm Heart rate: 140 bpm Other: Suspected bilateral scrotal hydroceles IMPRESSION: Normal amniotic fluid index Suspected bilateral scrotal hydroceles of unknown etiology Electronically authenticated by: LEANDRA BUSTOS Date: 2021-06-11 11:26 Normal The [facility] GLYCOHEMOGLOBIN A1Con 2021 ADA RECOMMENDATION ADA THERAPEUTIC TARG ET 6.0 - 7.0 ACTION SUGGESTED > 7.0 Normal The [facility] Comment on above: Performed By: #### A 1C #### [facility] [address] [place] [address] Dr. Kamaljit Reich Glucose [Mass/Vol] 103 mg/dL Normal [facility] Comment on above: Performed By: #### A 1C #### [facility] [address] [place] [address] Dr. Kamaljit Reich HbA1c (Bld) [Mass fraction] 5.2 % Normal <=6.0 [facility] Comment on above: Performed By: #### A 1C #### [facility] [address] [place] [address] Dr. Kamaljit Reich HEMOGRAM AND PLATELon 2021 Hematocrit (Bld) [Volume fraction] 33.7 % Critically low 36.0-48.0 The [facility] Comment on above: Performed By: #### A 1C #### [facility] [address] [place] [address] Dr. Kamaljit Reich Hemoglobin (Bld) [Mass/Vol] 11.0 g/dL Critically low 12.0 -16.0 [facility] Comment on above: Performed By: #### A 1C #### [facility] [address] [place] [address] Dr. Kamaljit Reich MCH (RBC) [Entitic mass] 27.7 pg Normal 26.7-34.0 [facility] Comment on above: Performed By: #### A 1C #### [facility] [address] [place] [address] Dr. Kamaljit Reich MCHC (RBC) [Mass/Vol] 32.6 g/dL Normal 29.9-35.2 [facility] Comment on above: Performed By: #### A 1C #### [facility] [address] [place] [address] Dr. Kamaljit Reich MCV (RBC) [Entitic vol] 84.9 fL Normal 81.0-99.0 [facility] Comment on above: Performed By: #### A 1C #### [facility] [address] [place] [address] Dr. Kamaljit Reich PLT 245 103/ul Normal 150-450 [facility] Comment on above: Performed By: #### A 1C #### [facility] [address] [place] [address] Dr. Kamaljit Reich RBC 3.97 106/ul Critically low 4.20-5.40 [facility] Comment on above: Performed By: #### A 1C #### [facility] [address] [place] [address] Dr. Kamaljit Reich WBC 8.7 103/ul Normal 4.0-11.0 [facility] Comment on above: Performed By: #### A 1C #### [facility] [address] [place] [address] Dr. Kamaljit Reich RHOGAMon 05-16-2021 RHOGAM Status Information I ssued Quantity 1 Product ID Rh Immune Globulin Lot Number [id number] Issue Date/Time [id number] Normal [facility] Comment on above: Performed By: #### R PRQ #### [facility] [address] [place] [address] Dr. Kamaljit Reich US PREG BIOPHY W NON STRESSo n 05-12-2021 US PREG BIOPHY W NON STRESS Ultrasound biophysical profile CLINICAL: Evaluate well-being. TECHNIQUE: Dedicated ultrasound imaging of the fetus was performed to include the day habilitation supervisor's evaluation of biophysical profile. FINDINGS: Comparison: Ultrasound 04/01/2021 and ultrasound earlier today. FETUS: There is a single living intrauterine fetus in vertex presentation. heart rate of 136 beats per minute. AMNIOTIC FLUID: Amniotic fluid index is 12.14 cm, with maximum vertical pocket of 3.47 cm. BIOPHYSICAL PROFILE: motion: 2 out of 2. tone: 2 out of 2. breathin out of 2. Amniotic fluid volume: 2 out of 2. Total score: 8 out of 8. OTHER FINDINGS: None. IMPRESSION: 1. Single viable fetus in vertex presentation with heart rate of 136 beats per minute. 2. Total biophysical profile score of 8 out of 8. 3. Amniotic fluid index of 12.14 cm, with maximum vertical pocket of 3.47 cm. Electronically authenticated by: NICOLE CARDOSO Date: 2021-05-12 13:13 Normal [facility] US PREG GROWTHon 05-12-2021 US PREG GROWTH EXAMINATION: US PREG GROWTH HISTORY: Opioid abuse COMPARISON: No relevant comparison available. FINDINGS: Heart Rate: 101 127 Amniotic Fluid Volume: 13.5 cm Number: 1.0 Position: Cephalic presentation, longitudinal lie Maximum Vertical Pocket: 6.1 cm cm 3.5 cm cm 2.6 cm cm 1.3 cm cm BIOMETRY: BPD: 7.7 cm cm; 30 weeks 5 days; HC: 28.1 cmcm; 30 weeks 5 days AC: 25.4 cm cm; 29 weeks 4 days FL: 5.6 cm cm; 29 weeks 4 days; EFW: 3 lbs. 3 oz., 23% FL/AC: 0.862632 FL/BPD: 0.302261 HC/AC: 1.600805 GESTATIONAL AGE: Age by EDC: 30 weeks 2 days QUINN by EDC: 07/19/2021 Age by US: 30 weeks 1 day QUINN by US: 07/20/2021 IMPRESSION: heart rate between 101-127 Normal interval growth Electronically authenticated by: LEANDRA BUSTOS Date: 2021-05-12 11:36 Normal The [facility] TYPE AND SCREENon 05-05-2021 TYPE AND SCREEN Negative Normal [facility] Comment on above: Performed By: #### T NS #### [facility] [address] [place] [address] Dr. Kamaljit Reich CHLAMYDIA/GONOCOCCUS NELY (SW AB/URINE/PAPon 05-01-2021 Chlamydia trachomatis, NELY Negative Normal Negative [facility] Comment on above: Performed By: #### C T/NGNA #### [facility] [address] [place] [address] Dr. Kamaljit Reich Neisseria gonorrhoeae, NELY Negative Normal Negative [facility] Comment on above: Performed By: #### C T/NGNA #### [facility] [address] [place] [address] Dr. Kamaljit Reich VAGINITIS/VAGINOSIS DNA PROB Eliezer 04-30-2021 Fernanda species Negative Normal Negative [facility] Comment on above: Performed By: #### A 1C #### [facility] [address] [place] [address] Dr. Kamaljit Reich Gardnerella vaginalis Negative Normal Negative [facility] Comment on above: Performed By: #### A 1C #### [facility] [address] [place] [address] Dr. Kamaljit Reich Trichomonas vaginalis Negative Normal Negative [facility] Comment on above: Performed By: #### A 1C #### [facility] [address] [place] [address] Dr. Kamaljit Reich US PREG PLACENTAon US PREG PLACENTA EXAMINATION: US PREG PLACENTA HISTORY: Low lying placenta COMPARISON: 03/04/2021 FINDINGS: Placenta: Anterior. No intraplacental or retroplacental echogenic abnormality. The placental edge is 5.3 cm from the cervical os. Breech presentation Heart rate: 131 bpm Cervix: Closed, 4.6 cm in length IMPRESSION: Placental edge is now 5.3 cm from the internal cervical os Electronically authenticated by: LEANDRA BUSTOS Date: 2021-04-01 16:07 Normal [facility] PAP ACOG PANEL 2: 21 to 29on 03-10-2021 . . Normal [facility] Comment on above: Performed By: #### C T/NGNA #### [facility] [address] [place] [address] Dr. Kamaljit Reich Age Gdln ACOG Testing - Normal [facility] Comment on above: Performed By: #### C T/NGNA #### [facility] [address] [place] [address] Dr. Kamaljit Reich DIAGNOSIS: Comment Normal [facility] Comment on above: Result Comment: NEGA TIVE FOR INTRAEPITHELIAL LESION OR MALIGNANCY. THIS SPECIMEN WAS RESCREENED PART OF OUR FUEL DOCK ATTENDANT PROGRAM. Performed By: #### C T/NGNA #### [facility] [address] [place] [address] Dr. Kamaljit Reich Methodology: Comment Normal [facility] Comment on above: Result Comment: This liquid based ThinPrep(R) pap test was screened with the use of an image guided system. Performed By: #### C T/NGNA #### [facility] [address] [place] [address] Dr. Kamaljit Reich Note: Comment Normal [facility] Comment on above: Result Comment: The Pap smear is a screening test designed to aid in the detection of premalignant and malignant conditions of the uterine cervix. It is not a diagnostic procedure and should not be used as the sole means of detecting cervical cancer. Both false-positive and false-negative reports do occur. . Performed By: #### C T/NGNA #### [facility] [address] [place] [address] Dr. Kamaljit Reich Performed by: Comment Normal The [facility] Comment on above: Result Comment: Christin Abdul, Power Crane Operator (ASCP) Performed By: #### C T/NGNA #### [facility] [address] [place] [address] Dr. Kamaljit Reich QC reviewed by: Comment Normal [facility] Comment on above: Result Comment: Radha Alejandre, Supervisory Power Crane Operator (ASCP) Performed By: #### C T/NGNA #### [facility] [address] [place] [address] Dr. Kamaljit Reich Reflex Criteria: Comment Normal [facility] Comment on above: Result Comment: The HPV DNA reflex criteria were not met with this specimen result therefore, no HPV testing was performed. . Performed By: #### C T/NGNA #### [facility] [address] [place] [address] Dr. Kamaljit Reich Specimen adequacy: Comment Normal [facility] Comment on above: Result Comment: Sati sfactory for evaluation. Endocervical and/or squamous metaplastic cells (endocervical component) are present. Performed By: #### C T/NGNA #### [facility] [address] [place] [address] Dr. Kamaljit Reich CHLAMYDIA/GONOCOCCUS NELY (SW AB/URINE/PAPon 03-07-2021 Chlamydia trachomatis, NELY Negative Normal Negative [facility] Comment on above: Performed By: #### C T/NGNA #### [facility] [address] [place] [address] Dr. Kamaljit Reich Neisseria gonorrhoeae, NELY Negative Normal Negative [facility] Comment on above: Performed By: #### C T/NGNA #### [facility] [address] [place] [address] Dr. Kamaljit Reich VAGINITIS/VAGINOSIS DNA PROB Eliezer 03-06-2021 Fernanda species Negative Normal Negative [facility] Comment on above: Performed By: #### V AGINT #### [facility] [address] [place] [address] Dr. Kamaljit Reich Gardnerella vaginalis Negative Normal Negative [facility] Comment on above: Performed By: #### V AGINT #### [facility] [address] [place] [address] Dr. Kamaljit Reich Trichomonas vaginalis Negative Normal Negative [facility] Comment on above: Performed By: #### V AGINT #### [facility] [address] [address] [address] Kamaljit Reich US PREG ANATOMY SINGLEon US PREG ANATOMY SINGLE EXAMINATION: US P REG ANATOMY SINGLE HISTORY: anatomy study COMPARISON: No relevant comparison available. TECHNIQUE: Transabdominal sonographic examination was performed for obstetrical and evaluation. FINDINGS: Number: 1 Heart Rate: 130 H.B. /min Amniotic Fluid Volume: Subjectively normal Placental Location: Anterior with lower margin 2.8 cm from internal os. Cervix Length: 5.6 cm, closed. ANATOMY: Normal Structures -cerebellum, choroid plexus, cisterna magna, lateral cerebral ventricles, orbits, midline falx, hard palate, four-chamber heart, RVOT, LVOT, stomach, kidneys, bladder, umbilical cord insertion into abdomen, three-vessel cord, cervical spine, thoracic spine, lumbar spine, sacral spine, right upper extremity, left upper extremity, right lower extremity, left lower extremity. SUBOPTIMALLY SEEN: None ABNORMALITIES: None BIOMETRY: BPD: 4.2 cm 18 weeks 5 days HC: 16.2 cm 19 weeks 0 days AC: 14.1 cm 19 weeks 3 days FL: 3.3 cm 20 weeks 1 days EFW: 308 g (70th percentile by ultrasound, 13th percentile by expected) FL/AC: 0.797836 FL/BPD: 0.013912 HC/AC: 1.647168 GESTATIONAL AGE: Age by EDC: 20 weeks, 3 days QUINN by EDC: 07/19/2021 Age by current US: 19 weeks, 2 days QUINN by current US: 07/27/2021 IMPRESSION: 1. Single live intrauterine with growth detailed above. 2. Anterior, low-lying placenta. Electronically authenticated by: JASE JONES Date: 2021-03-04 17:10 Normal [facility] l HEP B SURFACE ANTIGEN SCREEN on 12-28-2020 HBsAg Screen Negative Normal Negative [facility] Comment on above: Performed By: #### C T/NGNA #### [facility] [address] [address] [address] Kamaljit Reich HEPATITIS C VIRUS AB W/ REFL EX QUANTon 12-28-2020 HCV AB <0.1 Normal 0.0-0.9 The [facility] Comment on above: Performed By: #### A 1C #### [facility] [address] [place] [address] Dr. Kamaljit Reich Interpretation: Comment Normal [facility] Comment on above: Result Comment: Nega tive Not infected with HCV, unless recent infection is suspected or other evidence exists to indicate HCV infection. Performed By: #### A 1C #### [facility] [address] [place] [address] Dr. Kamaljit Reich HIV 1 AND 2 WITH REFLEXon HIV Screen 4th Generation wRfx Non-Reactive Normal Non Reactive [facility] Comment on above: Performed By: #### A 1C #### [facility] [address] [place] [address] Dr. Kamaljit Reich RPR QUANTon 12-28-2020 Rapid Plasma Reagin, Quant Non-Reactive Normal NonRea< 1:1 [facility] Comment on above: Performed By: #### R PRQ #### [facility] [address] [place] [address] Dr. Kamaljit Reich RUBELLA AB IGGon 12-28-2020 Rubella Antibodies, IgG 1.39 index Normal Immune >0.99 [facility] Comment on above: Result Comment: Non- immune <0.90 Equivocal 0.90 - 0.99 Immune >0.99 Performed By: #### A 1C #### [facility] [address] [place] [address] Dr. Kamaljit Reich CBC AUTO DIFFon 12-27-2020 BASO # 0.0 103/ul Normal 0.0-0.1 [facility] Comment on above: Performed By: #### C T/NGNA #### [facility] [address] [place] [address] Dr. Kamaljit Reich Basophils/100 WBC (Bld) 0.3 % Normal 0.2-2.0 [facility] Comment on above: Performed By: #### C T/NGNA #### [facility] [address] [place] [address] Dr. Kamaljit Reich EO # 0.1 103/ul Normal 0.0-0.7 [facility] Comment on above: Performed By: #### C T/NGNA #### [facility] [address] [place] [address] Dr. Kamaljit Reich Eosinophils/100 WBC (Bld) 1.0 % Normal 0.9-7.0 [facility] Comment on above: Performed By: #### C T/NGNA #### [facility] [address] [place] [address] Dr. Kamaljit Reich Erythrocyte distribution wid th (RBC) [Ratio] 12.2 % Normal 11.0-15.0 [facility] Comment on above: Performed By: #### C T/NGNA #### [facility] [address] [place] [address] Dr. Kamaljit Reich Hematocrit (Bld) [Volume fraction] 37.7 % Normal 3 6.0-48.0 [facility] Comment on above: Performed By: #### C T/NGNA #### [facility] [address] [place] [address] Dr. Kamaljit Reich Hemoglobin (Bld) [Mass/Vol] 12.5 g/dL Normal 12.0-16. 0 [facility] Comment on above: Performed By: #### C T/NGNA #### [facility] [address] [place] [address] Dr. Kamaljit Reich IG # 0.02 10e3/ul Normal 0.00-0.03 [facility] Comment on above: Performed By: #### C T/NGNA #### [facility] [address] [place] [address] Dr. Kamaljit Reich IG % 0.3 % Normal 0.0-0.5 [facility] Comment on above: Performed By: #### C T/NGNA #### [facility] [address] [place] [address] Dr. Kamalijt Reich LYMPH # 1.3 103/ul Normal 1.2-3.8 [facility] Comment on above: Performed By: #### C T/NGNA #### [facility] [address] [place] [address] Dr. Kamaljit Reich Lymphocytes/100 WBC (Bld) 18.6 % Critically low 20.5-6 0.0 [facility] Comment on above: Performed By: #### C T/NGNA #### [facility] [address] [place] [address] Dr. Kamaljit Reich MANUAL DIFF REQ NO Normal [facility] Comment on above: Performed By: #### C T/NGNA #### [facility] [address] [place] [address] Dr. Kamaljit Reich MCH (RBC) [Entitic mass] 28.8 pg Normal 26.7-34.0 [facility] Comment on above: Performed By: #### C T/NGNA #### [facility] [address] [place] [address] Dr. Kamaljit Reich MCHC (RBC) [Mass/Vol] 33.2 g/dL Normal 29.9-35.2 [facility] Comment on above: Performed By: #### C T/NGNA #### [facility] [address] [place] [address] Dr. Kamaljit Reich MCV (RBC) [Entitic vol] 86.9 fL Normal 81.0-99.0 [facility] Comment on above: Performed By: #### C T/NGNA #### [facility] [address] [place] [address] Dr. Kamaljit Reich MONO # 0.3 103/ul Normal 0.3-0.8 [facility] Comment on above: Performed By: #### C T/NGNA #### [facility] [address] [place] [address] Dr. Kamaljit Reich Monocytes/100 WBC (Bld) 5.1 % Normal 1.7-12.0 [facility] Comment on above: Performed By: #### C T/NGNA #### [facility] [address] [place] [address] Dr. Kamaljit Reich NEUT # 5.0 103/ul Normal 1.4-6.5 [facility] Comment on above: Performed By: #### C T/NGNA #### [facility] [address] [place] [address] Dr. Kamaljit Reich Neutrophils/100 WBC (Bld) 74.7 % Normal 43.0-75.0 [facility] Comment on above: Performed By: #### C T/NGNA #### [facility] [address] [place] [address] Dr. Kamaljit Reich Platelet mean volume (Bld) [ Entitic vol] 10.2 fL Normal 9.5-13.5 [facility] pital Comment on above: Performed By: #### C T/NGNA #### [facility] [address] [place] [address] Dr. Kamaljit Reich PLT 204 103/ul Normal 150-450 [facility] Comment on above: Performed By: #### C T/NGNA #### [facility] [address] [place] [address] Dr. Kamaljit Reich RBC 4.34 106/ul Normal 4.20-5.40 [facility] Comment on above: Performed By: #### C T/NGNA #### [facility] [address] [place] [address] Dr. Kamaljit Reich WBC 6.7 103/ul Normal 4.0-11.0 [facility] Comment on above: Performed By: #### C T/NGNA #### [facility] [address] [place] [address] Dr. Kamaljit Reich CULTURE URINEon 12-27-2020 CULTURE URINE Culture Observations : LIGHT GROWTH OF MIXED GENITAL MADY. NO POTENTIAL PATHOGENS SEEN. Normal [facility] Comment on above: Performed By: #### U RCX #### [facility] [address] [place] [address] Dr. Kamaljit Reich DIRECT COOMBSon 12-27-2020 DIRECT MARY Negative Normal [facility] Comment on above: Performed By: #### D IRCMB #### [facility] [address] [place] [address] Dr. Kamaljit Reich GLYCOHEMOGLOBIN A1Con 2020 ADA RECOMMENDATION ADA THERAPEUTIC TARG ET 6.0 - 7.0 ACTION SUGGESTED > 7.0 Normal [facility] Comment on above: Performed By: #### A 1C #### [facility] [address] [place] [address] Dr. Kamaljit Reich Glucose [Mass/Vol] 100 mg/dL Normal [facility] Comment on above: Performed By: #### A 1C #### [facility] [address] [address] [address] Kamaljit Reich HbA1c (Bld) [Mass fraction] 5.1 % Normal <=6.0 [facility] Comment on above: Performed By: #### A 1C #### [facility] [address] [place] [address] Dr. Kamaljit Reich PARDEEP BOX TEST PT SEND OUTo n 12-27-2020 SENT TO REF LAB 12/27/2020 Normal [facility] Comment on above: Performed By: #### A 1C #### [facility] [address] [place] [address] Dr. Kamaljit Reich TYPE AND SCREENon 12-27-2020 TYPE AND SCREEN Negative Normal [facility] Comment on above: Performed By: #### T NS #### [facility] [address] [place] [address] Dr. Kamaljit Reich US PREG TVon 12-10-2020 US PREG TV EXAMINATION: US PREG TV HISTORY: Urine test positive COMPARISON: No relevant comparison available. FINDINGS: Muir intrauterine gestation MSD: 2.8 cm, 8 weeks 0 days CRL: 1.55 cm, 7 weeks 6 days Yolk sac: 0.43 cm The uterus is normal in appearance, retroverted, retroflexed. The right ovary is normal in size, contour and echotexture measuring 2.8 x 2.1 x 2.9 cm. The left ovary is normal in size, contour and echotexture measuring 2.9 x 1.1 x 1.8 cm Cervix: Closed, 3.7 cm Clinical age: 8 weeks 3 days Clinical QUINN: 07/19/2021 Ultrasound age: 7 weeks 6 days Ultrasound QUINN: 07/23/2021 IMPRESSION: Viable muir intrauterine gestation measuring 7 weeks 6 days Electronically authenticated by: LEANDRA BUSTOS Date: 2020-12-10 14:11 Normal [facility] Encounters Encounter Date Encounter Type Care Provider Facility Start: 03-02-2023 End: 03-02-2023 ambulatory OTIS THOMPSON Not Available Start: 07-09-[address] ZHOU Sanchez lity:[facility]1 Start: 07-02-[address] ZHOU Sanchez lity:[facility]1 Start: 07-01-2021 End: 07-03-2021 Evaluation and management of inpatient DR OTIS THOMPSON Facility:[facility] Start: 06-28-[address] ZHOU Sanchez lity:[facility]1 Start: 06-25-2021 End: 06-25-[address] OTIS THOMPSON Facility:[facility] Start: 06-25-2021 End: 06-25-[address] ZHOU WILLIAM Facility:[facility] Start: 06-22-[address] ZHOU Sanchez lity:[facility]1 Start: 06-18-[address] ZHOU Sanchez lity:H1 Start: 06-14-[address] ZHOU Sanchez lity:H1 Start: 06-11-2021 End: 06-11-[address] ZHOU WILLIAM Facility:[facility] Start: 06-03-2021 End: 06-04-[address] ZHOU WILLIAM Facility:[facility] Start: 05-16-2021 End: 05-16-[address] OTIS THOMPSON Facility:[facility] Start: 05-12-2021 End: 05-12-[address] OTIS THOMPSON Facility:[facility] Start: 05-12-2021 End: 05-13-[address] OTIS THOMPSON Facility:[facility] Start: 05-05-2021 End: 05-06-[address] OTIS THOMPSON Facility:[facility] Start: 04-28-2021 End: 04-28-[address] OTIS THOMPSON Facility:[facility] Start: 04-01-2021 End: 04-02-[address] OTIS THOMPSON Facility:[facility] Start: 03-04-2021 End: 11-30-[address] OTIS THOMPSON Facility:[facility] Start: 03-04-2021 End: 03-05-[address] OTIS THOMPSON Facility:[facility] Start: 02-04-[address] DOCTOR FRANK Facility :[facility] Start: 12-27-2020 End: 12-28-[address] DOCTOR FRANK Facility:[facility] Start: 12-10-2020 End: 12-11-[address] OTIS THOMPSON Facility:[facility] Procedures Date Procedure Procedure Detail Performing Clinician Start: 07-01-2021 Delivery of Products of Conception, External Approach DR ZHOU WILLIAM Start: 07-01-2021 Repair Vulva, Business Education Professor al Approach DR ZHOU WILLIAM Payers Date Payer Category Payer Medicaid [id number] 1994 Unknown [id number] 2.16.84 0.1.850764.3.579.2.593 1994 Unknown [id number] 2.16.84 0.1.420653.3.579.2.593 1994 Unknown [id number] 2.16.84 0.1.026949.3.579.2.593 1994 Unknown [id number] 2.16.84 0.1.068781.3.579.2.593 1994 Unknown [id number] 2.16.84 0.1.412350.3.579.2.593 1994 Unknown [id number] 2.16.84 0.1.918887.3.579.2.593 1994 Unknown [id number] 2.16.84 0.1.566788.3.579.2.593 1994 Unknown [id number] 2.16.84 0.1.920908.3.579.2.593 1994 Unknown [id number] 2.16.84 0.1.916373.3.579.2.593 1994 Unknown [id number] 2.16.84 0.1.719368.3.579.2.593 1994 Unknown [id number] 2.16.84 0.1.393536.3.579.2.593 1994 Unknown [id number] 2.16.84 0.1.077338.3.579.2.593 1994 Unknown [id number] 2.16.84 0.1.133242.3.579.2.593 1994 Unknown [id number] 2.16.84 0.1.802001.3.579.2.593 1994 Unknown [id number] 2.16.84 0.1.803842.3.579.2.593 1994 Unknown [id number] 2.16.84 0.1.656499.3.579.2.593 1994 Unknown [id number] 2.16.84 0.1.686122.3.579.2.593 1994 Unknown [id number] 2.16.84 0.1.893305.3.579.2.593 1994 Unknown [id number] 2.16.84 0.1.059462.3.579.2.593 1994 Unknown [id number] 2.16.84 0.1.906672.3.579.2.593 1994 Unknown [id number] 2.16.84 0.1.807998.3.579.2.593 1994 Unknown [id number] 2.16.84 0.1.313390.3.579.2.593 1994 Unknown [id number] 2.16.84 0.1.339260.3.579.2.593 1994 Unknown [id number] 2.16.840 .1.466813.3.579.2.1259 1959 Self-pay [id number] 1959 Unknown [id number] Unknown [id number] 2.16.84 0.1.379632.3.579.2.593 Summary Purpose Family History No Family History Records FoundNo Family History Records Found Advance Directives No Advanced Directives Records FoundNo Advanced Directives Records Found Additional Source Comments INFORMATION SOURCE (unrecogn ized section and content) DATE CREATED AUTHOR 07/15/2021 [facility] DATE CREATED AUTHOR AUTHORShahid VALENCIA 03/04/2023 [facility] FOR RECORDS PERTAINING TO PATIENTS WHO ARE OR HAVE BEEN ENROLLED IN A CHEMICAL DEPENDENCY/SUBSTANCEABUSE PROGRAM, SOME INFORMATION MAY BE OMITTED. This clinical summary was aggregated from multiple sources. Caution should be exercised in using it in the provision of clinical care. This summary normalizes information from multiple sources, and as a consequence, information in this document may materially change the coding, format and clinical context of patient data. In addition, data may be omitted in some cases. CLINICAL DECISIONS SHOULD BE BASED ON THE PRIMARY CLINICAL RECORDS. [facility] [employer] provides no warranty or guarantee of the accuracy or completeness of information in this document.
== END 2023-03-17 14:00 | disposition home or self-care (01) ==
LOC: FBCO 07:08 → FBC 13:17
PROVIDERS: Visit Provider Obstetrics & Gynecology
DX: Z34.93 Encounter for supervision of normal pregnancy, unspecified, third trimester (principal)
CPT/HCPCS: 59025

== ENCOUNTER 2023-03-20 10:05 | Outpatient (OUT) | payer OTHER, SELFPAY ==
--- NOTE | 2023-03-20 | US_ITS ---
[address] [address] Patient Name: ROSHNI ALEJANDRE MRN: [id number] date: 1995 Sex: F Assigned Patient Location: [facility] Current Patient Location: [facility] [place] Accession/Order Number: [id number] Exam Date: 03/20/2023 15:00 Report Date: 03/22/2023 08:11 At the request of: OTIS THOMPSON Procedure: US OB BPP w non-stress EXAMINATION: US OB BPP w non-stress HISTORY: THIRD TRIMESTER Z34.93 COMPARISON: No relevant comparison available. TECHNIQUE: Ultrasound biophysical profile was performed in the radiology department. non-reactive stress testing was performed by nursing staff in the birthing center. FINDINGS: BREATHING MOVEMENTS: 2.0 GROSS BODY MOVEMENTS: 2.0 TONE: 2.0 QUALITATIVE AMNIOTIC FLUID VOLUME: 2.0 PRESENTATION: CEPHALIC HEART RATE: 122.7 bpm H.B./min AMNIOTIC FLUID VOLUME: 11.9 cm cm GESTATIONAL AGE: 34 weeks 3 days CONCLUSION: Total biophysical profile score: 8.0 Electronically authenticated by: LEANDRA BUSTOS Date: 03/22/2023 08:11
[2023-03-20 14:15] VITALS: BP 134/78; PULSE 74
== END 2023-03-20 15:30 | disposition home or self-care (01) ==
LOC: US 10:06 → FBC 14:10
PROVIDERS: Visit Provider Obstetrics & Gynecology
DX: Z34.93 Encounter for supervision of normal pregnancy, unspecified, third trimester (principal); Z3A.34 34 weeks gestation of pregnancy
CPT/HCPCS: 76818

== ENCOUNTER 2023-03-31 07:06 | Outpatient (OUT) | payer OTHER, SELFPAY ==
--- NOTE | 2023-03-31 13:19 | PC.NURSE ---
patient provides RN with medical marijuana card due to pt stating, I use medical marijuana as a medication. RN puts copy of medical marijuana card in patient's chart.
[2023-03-31 13:32] VITALS: BP 127/90; PULSE 86
[2023-03-31 13:40] VITALS: RESP 18
--- OUTSIDE RECORDS SUMMARY | 2023-04-10 08:05 | XMS_ITS | CCD ---
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 Role Phone NATALIIA, DR EPPERSON Attending [...] Consulting Unavailable DONNA, DR BERG Attending Unavailable DNONA, DR BERG Consulting Unavailable KARASIK, DR EPPERSON [...] Unavailable ZIEBER, DR JASE Kenney Consulting Unavailable ODNNA, DR BERG Admitting Unavailable MISC, DR BRIDGES [...] Unavailable DONNA, DR BERG Admitting Unavailable AGUBOSIM, FARNCO Consulting Unavailable DONNA, DR BERG Procedure Practitioner [...] 07-14-2021 Episodic Other aftercare (1 source) 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 Kamaljit Spears THC GC/MS Conf >750 Normal Cutoff=10 [facility] Comment on above: Performed By: #### C T/NGNA #### [facility] [address] [place] [address] Dr. Kamaljit Reich ANTIBODY ID PANELon 07-07-19 ANTIBODY ID PANEL Antibody ID Anti-D Normal [facility] Comment on above: Performed By: #### A BID #### [facility] [address] [place] [address] Dr. Kamaljit Reich CBC AUTO DIFFon 07-02-2021 BASO # 0.0 103/ul Normal 0.0-0.1 [facility] Comment on above: Performed By: #### A 1C #### [facility] [address] [place] [address] Dr. Kamaljit Reich Basophils/100 WBC (Bld) 0.3 % Normal 0.2-2.0 [facility] Comment on above: Performed By: #### A 1C #### [facility] [address] [place] [address] Dr. Kamaljit Reich EO # 0.1 103/ul Normal 0.0-0.7 [facility] Comment on above: Performed By: #### A 1C #### [facility] [address] [place] [address] Dr. Kamaljit Reich Eosinophils/100 WBC (Bld) 0.5 % Critically low 0.9-7.0 [facility] Comment on above: Performed By: #### A 1C #### [facility] [address] [place] [address] Dr. Kamaljit Reich Erythrocyte distribution width (RBC) [Ratio] 12.2 % Normal 11.0-15.0 [facility] Comment on above: Performed By: #### A 1C #### [facility] [address] [place] [address] Dr. Kamaljit Reich Hematocrit (Bld) [Volume fraction] 38.6 % Normal 36.0-48.0 [facility] Comment on above: Performed By: #### A 1C #### [facility] [address] [place] [address] Dr. Kamaljit Reich Hemoglobin (Bld) [Mass/Vol] 12.5 g/dL Normal 12.0-16.0 [facility] Comment on above: Performed By: #### A 1C #### [facility] [address] [address] [address] Kamaljit Reich IG # 0.06 10e3/ul Critically high 0.00-0.03 [facility] Comment on above: Performed By: #### A 1C #### [facility] [address] [address] [address] Kamaljit Reich IG % 0.5 % Normal 0.0-0.5 [facility] Comment on above: Performed By: #### A 1C #### [facility] [address] [place] [address] Dr. Kamaljit Reich LYMPH # 1.2 103/ul Normal 1.2-3.8 [facility] Comment on above: Performed By: #### A 1C #### [facility] [address] [place] [address] Dr. Kamaljit Reich Lymphocytes/100 WBC (Bld) 9.8 % Critically low 20.5-60.0 [facility] Comment on above: Performed By: #### A 1C #### [facility] [address] [place] [address] Dr. Kamaljit Reich MANUAL DIFF REQ NO Normal [facility] Comment on above: Performed By: #### A 1C #### [facility] [address] [place] [address] Dr. Kamaljit Reich MCH (RBC) [Entitic mass] 28.2 pg Normal 26.7-34.0 [facility] Comment on above: Performed By: #### A 1C #### [facility] [address] [place] [address] Dr. Kamaljit Reich MCHC (RBC) [Mass/Vol] 32.4 g/dL Normal 29.9-35.2 [facility] Comment on above: Performed By: #### A 1C #### [facility] [address] [place] [address] Dr. Kamaljit Reich MCV (RBC) [Entitic vol] 87.1 fL Normal 81.0-99.0 [facility] Comment on above: Performed By: #### A 1C #### [facility] [address] [address] [address] Kamaljit Reich MONO # 0.8 103/ul Normal 0.3-0.8 [facility] Comment on above: Performed By: #### A 1C #### [facility] [address] [address] [address] Kamaljit Reich Monocytes/100 WBC (Bld) 6.1 % Normal 1.7-12.0 [facility] Comment on above: Performed By: #### A 1C #### [facility] [address] [place] [address] Dr. Kamaljit Reich NEUT # 10.2 103/ul Critically high 1.4-6.[address] [facility] Comment on above: Performed By: #### A 1C #### [facility] [address] [place] [address] Dr. Kamaljit Reich Neutrophils/100 WBC (Bld) 82.8 % Critically high 43.0-75.0 [facility] Comment on above: Performed By: #### A 1C #### [facility] [address] [place] [address] Dr. Kamaljit Reich Platelet mean volume (Bld) [Entitic vol] 10.5 fL Normal 9.5-13.5 [facility] Comment on above: Performed By: #### A 1C #### [facility] [address] [place] [address] Dr. Kamaljit Reich PLT 214 103/ul Normal 150-450 [facility] Comment on above: Performed By: #### A 1C #### [facility] [address] [place] [address] Dr. Kamaljit Reich RBC 4.43 106/ul Normal 4.20-5.40 [facility] Comment on above: Performed By: #### A 1C #### [facility] [address] [place] [address] Dr. Kamaljit Reich WBC 12.3 103/ul Critically high 4.0-11.[address] [facility] Comment on above: Performed By: #### A 1C #### [facility] [address] [place] [address] Dr. Kamaljit Reich CBC AUTO DIFFon 07-01-2021 BASO # 0.0 103/ul Normal 0.0-0.1 [facility] Comment on above: Performed By: #### A 1C #### [facility] [address] [place] [address] Dr. Kamaljit Reich Basophils/100 WBC (Bld) 0.2 % Normal 0.2-2.0 [facility] Comment on above: Performed By: #### A 1C #### [facility] [address] [place] [address] Dr. Kamaljit Reich EO # 0.0 103/ul Normal 0.0-0.7 [facility] Comment on above: Performed By: #### A 1C #### [facility] [address] [place] [address] Dr. Kamaljti Reich Eosinophils/100 WBC (Bld) 0.5 % Critically low 0.9-7.0 [facility] Comment on above: Performed By: #### A 1C #### [facility] [address] [place] [address] Dr. Kamaljit Reich Erythrocyte distribution width (RBC) [Ratio] 12.4 % Normal 11.0-15.0 [facility] Comment on above: Performed By: #### A 1C #### [facility] [address] [place] [address] Dr. Kamaljit Reich Hematocrit (Bld) [Volume fraction] 38.8 % Normal 36.0-48.0 [facility] Comment on above: Performed By: #### A 1C #### [facility] [address] [place] [address] Dr. Kamaljit Reich Hemoglobin (Bld) [Mass/Vol] 12.8 g/dL Normal 12.0-16.0 [facility] Comment on above: Performed By: #### A 1C #### [facility] [address] [place] [address] Dr. Kamaljit Reich IG # 0.02 10e3/ul Normal 0.00-0.03 [facility] Comment on above: Performed By: #### A 1C #### [facility] [address] [place] [address] Dr. Kamaljit Reich IG % 0.2 % Normal 0.0-0.5 [facility] Comment on above: Performed By: #### A 1C #### [facility] [address] [place] [address] Dr. Kamaljit Reich LYMPH # 1.4 103/ul Normal 1.2-3.8 [facility] Comment on above: Performed By: #### A 1C #### [facility] [address] [place] [address] Dr. Kamaljit Reich Lymphocytes/100 WBC (Bld) 15.6 % Critically low 20.5-60.0 [facility] Comment on above: Performed By: #### A 1C #### [facility] [address] [place] [address] Dr. Kamaljit Reich MANUAL DIFF REQ NO Normal [facility] Comment on above: Performed By: #### A 1C #### [facility] [address] [place] [address] Dr. Kamaljit Reich MCH (RBC) [Entitic mass] 27.7 pg Normal 26.7-34.0 [facility] Comment on above: Performed By: #### A 1C #### [facility] [address] [place] [address] Dr. Kamaljit Reich MCHC (RBC) [Mass/Vol] 33.0 g/dL Normal 29.9-35.2 [facility] Comment on above: Performed By: #### A 1C #### [facility] [address] [place] [address] Dr. Kamaljit Reich MCV (RBC) [Entitic vol] 84.0 fL Normal 81.0-99.0 [facility] Comment on above: Performed By: #### A 1C #### [facility] [address] [place] [address] Dr. Kamaljit Reich MONO # 0.4 103/ul Normal 0.3-0.8 [facility] Comment on above: Performed By: #### A 1C #### [facility] [address] [place] [address] Dr. Kamaljit Reich Monocytes/100 WBC (Bld) 5.0 % Normal 1.7-12.0 [facility] Comment on above: Performed By: #### A 1C #### [facility] [address] [place] [address] Dr. Kamaljit Reich NEUT # 7.0 103/ul Critically high 1.4-6.5 [facility] Comment on above: Performed By: #### A 1C #### [facility] [address] [place] [address] Dr. Kamaljit Reich Neutrophils/100 WBC (Bld) 78.5 % Critically high 43.0-75.0 [facility] Comment on above: Performed By: #### A 1C #### [facility] [address] [place] [address] Dr. Kamaljit Reich Platelet mean volume (Bld) [Entitic vol] 10.7 fL Normal 9.5-13.5 [facility] Comment on above: Performed By: #### A 1C #### [facility] [address] [place] [address] Dr. Kamaljit Reich PLT 228 103/ul Normal 150-450 [facility] Comment on above: Performed By: #### A 1C #### [facility] [address] [place] [address] Dr. Kamaljit Reich RBC 4.62 106/ul Normal 4.20-5.40 [facility] Comment on above: Performed By: #### A 1C #### [facility] [address] [place] [address] Dr. Kamaljit Reich WBC 8.9 103/ul Normal 4.0-11.0 [facility] Comment on above: Performed By: #### A 1C #### [facility] [address] [place] [address] Dr. Kamaljit Reich Covid-19 PCR ([facility])on 06-04 SARS-CoV-2 (COVID-19) RNA NEYL+probe Ql (Unsp spec) Not detected Normal NOT DETECTED [facility] Comment on above: Result Comment: When [...] for this test is supported by the [employer] Operator of Health and Human Service's declaration that [...] used). Performed By: #### R PRQ #### [facility] [address] [place] [address] Dr. Kamaljit Reich DRUG SCREEN RAPID (URINE)on 07-01-2021 AMP Negative Normal NEGATIVE [facility] Comment on above: Performed By: #### A 1C #### [facility] [address] [place] [address] Dr. Kamaljit Reich BAR Negative Normal NEGATIVE [facility] Comment on above: Performed By: #### A 1C #### [facility] [address] [place] [address] Dr. Kamaljit Reich BUP Positive Abnormal NEGATIVE [facility] Comment on above: Performed By: #### A 1C #### [facility] [address] [place] [address] Dr. Kamaljit Reich BZO Negative Normal NEGATIVE [facility] Comment on above: Performed By: #### A 1C #### [facility] [address] [place] [address] Dr. Kamaljit Reich NOEMI Negative Normal NEGATIVE [facility] Comment on above: Performed By: #### A 1C #### [facility] [address] [place] [address] Dr. Kamaljit Reich CUT-OFFS SEE BELOW Normal [facility] Comment on above: Result Comment: AMP (Amphetamine): 500ng/mL, BAR (Barbituates): 200 ng/mL, BZO (Benzodiazepines): 150 ng/mL, BUP (Buprenorphine): 10 ng/mL, NOEMI (Cocaine): 150 ng/mL, mAMP (Methamphetamine): 500 ng/mL, MTD (Methadone): 200 ng/mL, OPI (Opiates): 100 ng/mL, OXY (Oxycodone): 100 ng/mL, PCP (Phencyclidine): 25 ng/mL, PPX (Propoxyphene): 300 ng/mL, THC (Cannabinoids): 50 ng/mL, TCA (Trycyclic Antidepressants): 300 ng/mL Performed By: #### A 1C #### [facility] [address] [place] [address] Dr. Kamaljit Reich DRUG CUT HEADER DRUG CLASS TEST SYSTEM CUT-OFF CONCENTRATIONS ARE FOLLOWS: Normal [facility] Comment on above: Performed By: #### A 1C #### [facility] [address] [place] [address] Dr. Kamaljit Reich mAMP Negative Normal NEGATIVE [facility] Comment on above: Performed By: #### A 1C #### [facility] [address] [place] [address] Dr. Kamaljit Reich MTD Negative Normal NEGATIVE [facility] Comment on above: Performed By: #### A 1C #### [facility] [address] [place] [address] Dr. Kamaljit Reich OPI Negative Normal NEGATIVE [facility] Comment on above: Performed By: #### A 1C #### [facility] [address] [place] [address] Dr. Kamaljit Reich OXY Negative Normal NEGATIVE [facility] Comment on above: Performed By: #### A 1C #### [facility] [address] [place] [address] Dr. Kamaljit Reich PCP Negative Normal NEGATIVE [facility] Comment on above: Performed By: #### A 1C #### [facility] [address] [place] [address] Dr. Kamaljit Reich PPX Negative Normal NEGATIVE [facility] Comment on above: Performed By: #### A 1C #### [facility] [address] [place] [address] Dr. Kamaljit Reich TCA Negative Normal NEGATIVE [facility] Comment on above: Performed By: #### A 1C #### [facility] [address] [address] [address] Kamaljit Reich THC Positive Abnormal NEGATIVE [facility] Comment on above: Performed By: #### A 1C #### [facility] [address] [address] [address] Kamaljit Reich TYPE AND SCREENon 07-01-2021 TYPE AND SCREEN Negative Normal [facility] Comment on above: Performed By: #### T NS #### [facility] [address] [address] [address] Kamaljit Reich GROUP B STREP CULTUREon [...] S F Tetracycline >=16 R F Normal [facility] Comment on above: Performed By: #### R PRQ #### [facility] [address] [place] [address] Dr. Kamaljit Reich US PREG AMNIOTIC FLUID VOLUM Eliezer 06-25-2021 US PREG AMNIOTIC FLUID VOLUME EXAMINATION: US [...] by: JASE JONES Date: 2021-06-25 11:28 Normal [facility] US PREG AMNIOTIC FLUID VOLUM Eliezer 06-11-2021 [...] by: LEANDRA BUSTOS Date: 2021-06-11 11:26 Normal [facility] GLYCOHEMOGLOBIN A1Con 2021 ADA RECOMMENDATION ADA THERAPEUTIC TARGET 6.0 - 7.0 ACTION SUGGESTED > 7.0 Normal [facility] Comment on above: Performed By: #### A 1C #### [facility] [address] [place] [address] Dr. Kamaljit Reich Glucose [Mass/Vol] 103 mg/dL Normal [facility] Comment on above: Performed By: #### A 1C #### [facility] [address] [place] [address] Dr. Kamaljit Reich HbA1c (Bld) [Mass fraction] 5.2 % Normal <=6.0 [facility] Comment on above: Performed By: #### A 1C #### [facility] [address] [place] [address] Dr. Kamaljit Reich HEMOGRAM AND PLATELon 2021 Hematocrit (Bld) [Volume fraction] 33.7 % Critically low 36.0-48.0 [facility] Comment on above: Performed By: #### A 1C #### [facility] [address] [place] [address] Dr. Kamaljit eRich Hemoglobin (Bld) [Mass/Vol] 11.0 g/dL Critically low 12.0-16.0 [facility] Comment on above: Performed By: #### A 1C #### [facility] [address] [place] [address] Dr. Kamaljit Reich MCH (RBC) [Entitic mass] 27.7 pg Normal 26.7-34.0 [facility] Comment on above: Performed By: #### A 1C #### [facility] [address] [place] [address] Dr. Kamaljit Reich MCHC (RBC) [Mass/Vol] 32.6 g/dL Normal 29.9-35.2 [facility] Comment on above: Performed By: #### A 1C #### [facility] [address] [place] [address] Dr. Kamaljit Reich MCV (RBC) [Entitic vol] 84.9 fL Normal 81.0-99.0 [facility] Comment on above: Performed By: #### A 1C #### [facility] [address] [place] [address] Dr. Kamaljit Reich PLT 245 103/ul Normal 150-450 [facility] Comment on above: Performed By: #### A 1C #### [facility] [address] [place] [address] Dr. Kamaljit Reich RBC 3.97 106/ul Critically low 4.20-5.40 [facility] Comment on above: Performed By: #### A 1C #### [facility] [address] [place] [address] Dr. Kamaljit Reich WBC 8.7 103/ul Normal 4.0-11.0 [facility] Comment on above: Performed By: #### A 1C #### [facility] [address] [place] [address] Dr. Kamaljit Reich RHOGAMon 05-16-2021 RHOGAM Status Information Issued Quantity 1 Product ID Rh Immune Globulin Lot Number [id number] Issue Date/Time [id number] Normal [facility] Comment on above: Performed By: #### R PRQ #### [facility] [address] [place] [address] Dr. Kamaljit Reich US PREG BIOPHY W NON STRESSo n 05-12-2021 US PREG BIOPHY W NON STRESS Ultrasound biophysical profile CLINICAL: Evaluate well-being. TECHNIQUE: Dedicated ultrasound imaging of the fetus was performed to include the web press operator assistant's evaluation of biophysical profile. FINDINGS: Comparison: Ultrasound [...] NICOLE CARDOSO Date: 2021-05-12 13:13 Normal [facility] US PREG GROWTHon 05-12-2021 US [...] EFW: 3 lbs. 3 oz., 23% FL/AC: 0.665445 FL/BPD: 0.799196 HC/AC: 1.364570 GESTATIONAL AGE: Age by EDC: 30 weeks 2 days QUINN by EDC: 07/19/2021 Age by US: 30 weeks 1 day QUINN by US: 07/20/2021 IMPRESSION: heart rate between 101-127 Normal interval growth Electronically authenticated by: LEANDRA BUSTOS Date: 2021-05-12 11:36 Normal [facility] TYPE AND SCREENon 05-05-2021 TYPE AND SCREEN Negative Normal [facility] Comment on above: Performed By: #### T NS #### [facility] [address] [place] [address] Dr. Kamaljit Reich CHLAMYDIA/GONOCOCCUS NELY ( AB/URINE/PAPon 05-01-2021 Chlamydia trachomatis, NELY Negative Normal Negative [facility] Comment on above: Performed By: #### C T/NGNA #### [facility] [address] [address] [address] Kamaljit Reich Neisseria gonorrhoeae, NELY Negative Normal Negative [facility] Comment on above: Performed By: #### C T/NGNA #### [facility] [address] [address] [address] Kamaljit Reich VAGINITIS/VAGINOSIS DNA PROB Eliezer 04-30-2021 Fernanda species Negative Normal Negative [facility] Comment on above: Performed By: #### A 1C #### [facility] [address] [place] [address] Dr. Kamaljit Reich Gardnerella vaginalis Negative Normal Negative [facility] Comment on above: Performed By: #### A 1C #### [facility] [address] [place] [address] Dr. Kamaljit Reich Trichomonas vaginalis Negative Normal Negative [facility] Comment on above: Performed By: #### A 1C #### [facility] [address] [place] [address] Dr. Kamaljit Reich US PREG PLACENTAon US [...] by: LEANDRA BUSTOS Date: 2021-04-01 16:07 Normal [facility] PAP ACOG PANEL 2: 21 to 29on 03-10-2021 . . Normal [facility] Comment on above: Performed By: #### C T/NGNA #### [facility] [address] [place] [address] Dr. Kamaljit Reich Age Gdln ACOG Testing - Normal [facility] Comment on above: Performed By: #### C T/NGNA #### [facility] [address] [place] [address] Dr. Kamaljit Reich DIAGNOSIS: Comment [facility] Comment on above: Result Comment: NEGA TIVE FOR INTRAEPITHELIAL LESION OR MALIGNANCY. THIS SPECIMEN WAS RESCREENED PART OF OUR CONSERVATION AGENT PROGRAM. Performed By: #### C T/NGNA #### [facility] [address] [place] [address] Dr. Kamaljit Reich Methodology: Comment Normal [facility] Comment on above: Result Comment: This liquid based ThinPrep(R) pap test was screened with the use of an image guided system. Performed By: #### C T/NGNA #### [facility] [address] [place] [address] Dr. Kamaljit Reich Note: Comment Normal [facility] Comment on above: Result Comment: The Pap smear is a screening test designed to aid in the detection of premalignant and malignant conditions of the uterine cervix. It is not a diagnostic procedure and should not be used as the sole means of detecting cervical cancer. Both false-positive and false-negative reports do occur. . Performed By: #### C T/NGNA #### [facility] [address] [address] [place] [address] Dr. Kamaljit Reich Performed by: Comment Normal [facility] Comment on above: Result Comment: Christin Abdul, Credentialing Analyst (ASCP) Performed By: #### C T/NGNA #### [facility] [address] [place] [address] Dr. Kamaljit Reich QC reviewed by: Comment Normal [facility] Comment on above: Result Comment: Radha Alejandre, Supervisory Credentialing Analyst (ASCP) Performed By: #### C T/NGNA #### [facility] [address] [place] [address] Dr. Kamaljit Reich Reflex Criteria: Comment Normal [facility] Comment on above: Result Comment: The HPV DNA reflex criteria were not met with this specimen result therefore, no HPV testing was performed. . Performed By: #### C T/NGNA #### [facility] [address] [place] [address] Dr. Kamaljit Reich Specimen adequacy: Comment Normal [facility] Comment on above: Result Comment: Sati sfactory for evaluation. Endocervical and/or squamous metaplastic cells (endocervical component) are present. Performed By: #### C T/NGNA #### [facility] [address] [place] [address] Dr. Kamaljit Reich CHLAMYDIA/GONOCOCCUS NELY (SW AB/URINE/PAPon 03-07-2021 Chlamydia trachomatis, NELY Negative Normal Negative [facility] Comment on above: Performed By: #### C T/NGNA #### [facility] [address] [place] [address] Dr. Kamaljit Reich Neisseria gonorrhoeae, NELY Negative Normal Negative [facility] Comment on above: Performed By: #### C T/NGNA #### [facility] [address] [place] [address] Dr. Kamaljit Reich VAGINITIS/VAGINOSIS DNA PROB Eliezer 03-06-2021 Fernanda species Negative Normal Negative [facility] Comment on above: Performed By: #### V AGINT #### [facility] [address] [place] [address] Dr. Kamaljit Reich Gardnerella vaginalis Negative Normal Negative [facility] Comment on above: Performed By: #### V AGINT #### [facility] [address] [place] [address] Dr. Kamaljit Reich Trichomonas vaginalis Negative Normal Negative [facility] Comment on above: Performed By: #### V AGINT #### [facility] [address] [place] [address] Dr. Kamaljit Reich US PREG ANATOMY SINGLEon US PREG ANATOMY SINGLE EXAMINATION: US PREG ANATOMY SINGLE HISTORY: anatomy study COMPARISON: No [...] by ultrasound, 13th percentile by expected) FL/AC: [id number] FL/BPD: 0.631872 HC/AC: 1.350387 GESTATIONAL AGE: Age by EDC: 20 weeks, 3 days QUINN by EDC: 07/19/2021 Age by current US: 19 weeks, 2 days QUINN by current US: 07/27/2021 IMPRESSION: 1. Single live intrauterine with growth detailed above. 2. Anterior, low-lying placenta. Electronically authenticated by: JASE JONES Date: 2021-03-04 17:10 Normal [facility] HEP B SURFACE ANTIGEN SCREEN on 12-28-2020 HBsAg Screen Negative Normal Negative [facility] Comment on above: Performed By: #### C T/NGNA #### [facility] [address] [address] [address] Kamaljit Reich HEPATITIS C VIRUS AB W/ REFL EX QUANTon 12-28-2020 HCV AB <0.1 Normal 0.0-0.9 [facility] Comment on above: Performed By: #### A 1C #### [facility] [address] [address] [address] Kamaljit Reich Interpretation: Comment Normal [facility] Comment on above: Result Comment: Nega tive Not infected with HCV, unless recent infection is suspected or other evidence exists to indicate HCV infection. Performed By: #### A 1C #### [facility] [address] [address] [address] Kamaljit Reich HIV 1 AND 2 WITH REFLEXon HIV Screen 4th Generation wRfx Non-Reactive Normal Non Reactive [facility] Comment on above: Performed By: #### A 1C #### [facility] [address] [place] [address] Dr. Kamaljit Reich RPR QUANTon 12-28-2020 Rapid Plasma Reagin, Quant Non-Reactive Normal NonRea<1:1 [facility] Comment on above: Performed By: #### R PRQ #### [facility] [address] [place] [address] Dr. Kamaljit Reich RUBELLA AB IGGon 12-28-2020 Rubella Antibodies, IgG 1.39 index Normal Immune >0.99 [facility] Comment on above: Result Comment: Non- immune <0.90 Equivocal 0.90 - 0.99 Immune >0.99 Performed By: #### A 1C #### [facility] [address] [place] [address] Dr. Kamaljit Reich CBC AUTO DIFFon 12-27-2020 BASO # 0.0 103/ul Normal 0.0-0.1 [facility] Comment on above: Performed By: #### C T/NGNA #### [facility] [address] [place] [address] Dr. Kamaljit Reich Basophils/100 WBC (Bld) 0.3 % Normal 0.2-2.0 [facility] Comment on above: Performed By: #### C T/NGNA #### [facility] [address] [place] [address] Dr. Kamaljit Reich EO # 0.1 103/ul Normal 0.0-0.7 [facility] Comment on above: Performed By: #### C T/NGNA #### [facility] [address] [place] [address] Dr. Kamaljit Reich Eosinophils/100 WBC (Bld) 1.0 % Normal 0.9-7.0 [facility] Comment on above: Performed By: #### C T/NGNA #### [facility] [address] [place] [address] Dr. Kamaljit Reich Erythrocyte distribution width (RBC) [Ratio] 12.2 % Normal 11.0-15.0 [facility] Comment on above: Performed By: #### C T/NGNA #### [facility] [address] [address] [address] Kamaljit Reich Hematocrit (Bld) [Volume fraction] 37.7 % Normal 36.0-48.0 [facility] Comment on above: Performed By: #### C T/NGNA #### [facility] [address] [place] [address] Dr. Kamaljit Reich Hemoglobin (Bld) [Mass/Vol] 12.5 g/dL Normal 12.0-16.0 [facility] Comment on above: Performed By: #### C T/NGNA #### [facility] [address] [place] [address] Dr. Kamaljit Reich IG # 0.02 10e3/ul Normal 0.00-0.03 [facility] Comment on above: Performed By: #### C T/NGNA #### [facility] [address] [place] [address] Dr. Kamaljit Reich IG % 0.3 % Normal 0.0-0.5 [facility] Comment on above: Performed By: #### C T/NGNA #### [facility] [address] [place] [address] Dr. Kamaljit Reich LYMPH # 1.3 103/ul Normal 1.2-3.8 [facility] Comment on above: Performed By: #### C T/NGNA #### [facility] [address] [place] [address] Dr. Kamaljit Reich Lymphocytes/100 WBC (Bld) 18.6 % Critically low 20.5-60.0 [facility] Comment on above: Performed By: #### C T/NGNA #### [facility] [address] [place] [address] Dr. Kamaljit Reich MANUAL DIFF REQ NO Normal [facility] Comment on above: Performed By: #### C T/NGNA #### [facility] [address] [place] [address] Dr. Kamaljit Reich MCH (RBC) [Entitic mass] 28.8 pg Normal 26.7-34.0 [facility] Comment on above: Performed By: #### C T/NGNA #### [facility] [address] [place] [address] Dr. Kamaljit eRich MCHC (RBC) [Mass/Vol] 33.2 g/dL Normal 29.9-35.2 [facility] Comment on above: Performed By: #### C T/NGNA #### [facility] [address] [place] [address] Dr. Kamaljit Reich MCV (RBC) [Entitic vol] 86.9 fL Normal 81.0-99.0 [facility] Comment on above: Performed By: #### C T/NGNA #### [facility] [address] [place] [address] Dr. Kamaljit Reich MONO # 0.3 103/ul Normal 0.3-0.8 [facility] Comment on above: Performed By: #### C T/NGNA #### [facility] [address] [place] [address] Dr. Kamaljit Reich Monocytes/100 WBC (Bld) 5.1 % Normal 1.7-12.0 [facility] Comment on above: Performed By: #### C T/NGNA #### [facility] [address] [place] [address] Dr. Kamaljit Reich NEUT # 5.0 103/ul Normal 1.4-6.5 [facility] Comment on above: Performed By: #### C T/NGNA #### [facility] [address] [place] [address] Dr. Kamaljit Reich Neutrophils/100 WBC (Bld) 74.7 % Normal 43.0-75.0 [facility] Comment on above: Performed By: #### C T/NGNA #### [facility] [address] [place] [address] Dr. Kamaljit Reich Platelet mean volume (Bld) [Entitic vol] 10.2 fL Normal 9.5-13.5 [facility] Comment on above: Performed By: #### C T/NGNA #### [facility] [address] [place] [address] Dr. Kamaljit Reich PLT 204 103/ul Normal 150-450 [facility] Comment on above: Performed By: #### C T/NGNA #### [facility] [address] [place] [address] Dr. Kamaljit Reich RBC 4.34 106/ul Normal 4.20-5.40 [facility] Comment on above: Performed By: #### C T/NGNA #### [facility] [address] [place] [address] Dr. Kamaljit Reich WBC 6.7 103/ul Normal 4.0-11.0 [facility] Comment on above: Performed By: #### C T/NGNA #### [facility] [address] [place] [address] Dr. Kamaljit Reich CULTURE URINEon 12-27-2020 CULTURE URINE Culture Observations : LIGHT GROWTH OF MIXED GENITAL MADY. NO POTENTIAL PATHOGENS SEEN. Normal [facility] Comment on above: Performed By: #### U RCX #### [facility] [address] [place] [address] Dr. Kamaljit Reich DIRECT COOMBSon 12-27-2020 DIRECT MARY Negative Normal [facility] Comment on above: Performed By: #### D IRCMB #### [facility] [address] [place] [address] Dr. Kamaljit Reich GLYCOHEMOGLOBIN A1Con 2020 ADA RECOMMENDATION ADA THERAPEUTIC TARGET 6.0 - 7.0 ACTION SUGGESTED > 7.0 Normal [facility] Comment on above: Performed By: #### A 1C #### [facility] [address] [place] [address] Dr. Kamaljit Reich Glucose [Mass/Vol] 100 mg/dL Normal [facility] Comment on above: Performed By: #### A 1C #### [facility] [address] [place] [address] Dr. Kamaljit Reich HbA1c (Bld) [Mass fraction] 5.1 % Normal <=6.0 [facility] Comment on above: Performed By: #### A 1C #### [facility] [address] [place] [address] Dr. Kamaljit Reich PARDEEP BOX TEST PT SEND OUTo n 12-27-2020 SENT TO REF LAB 12/27/2020 Normal [facility] Comment on above: Performed By: #### A 1C #### [facility] [address] [address] [address] Kamaljit Reich TYPE AND SCREENon 12-27-2020 TYPE AND SCREEN Negative Normal [facility] Comment on above: Performed By: #### T NS #### [facility] [address] [address] [address] Kamaljit Reich US PREG TVon 12-10-2020 [...] LEANDRA BUSTOS Date: 2020-12-10 14:11 Normal [facility] Encounters Encounter Date Encounter Type Care Provider [...] DR OTIS THOMPSON Facility:[facility] Start: 03-04-2021 End: 03-04-[address] OTIS THOMPSON Facility:[facility] Start: 03-04-2021 End: 03-05-[address] OTIS THOMPSON Facility:[facility] Start: 02-04-[address] DOCTOR FRANK Facility :[facility] Start: 12-27-2020 End: 12-28-[address] DOCTOR FRANK Facility:[facility] Start: 12-10-2020 End: 12-11-[address] OTIS THOMPSON Facility:[facility] Procedures Date Procedure Procedure Detail Performing Clinician Start: 07-01-2021 Delivery of Products of Conception, External Approach DR ZHOU WILLIAM Start: 07-01-2021 Repair Vulva, Camp Coordinator al Approach DR ZHOU WILLIAM Payers Date Payer Category Payer Medicaid [id number] 1994 [facility] [id number] 2.16.84 0.1.599366.3.579.2.593 1994 Unknown [id number] 2.16.84 0.1.435720.3.579.2.593 1994 Unknown [id number] 2.16.84 0.1.603229.3.579.2.593 1994 Unknown [id number] 2.16.84 0.1.646671.3.579.2.593 1994 Unknown [id number] 2.16.84 0.1.087542.3.579.2.593 1994 Unknown [id number] 2.16.84 0.1.883680.3.579.2.593 1994 Unknown [id number] 2.16.84 0.1.584344.3.579.2.593 1994 Unknown [id number] 2.16.84 0.1.273764.3.579.2.593 1994 Unknown [id number] 2.16.84 0.1.830175.3.579.2.593 1994 Unknown [id number] 2.16.84 0.1.273394.3.579.2.593 1994 Unknown [id number] 2.16.84 0.1.421969.3.579.2.593 1994 Unknown [id number] 2.16.84 0.1.061740.3.579.2.593 1994 Unknown [id number] 2.16.84 0.1.577108.3.579.2.593 1994 Unknown [id number] 2.16.84 0.1.974222.3.579.2.593 1994 Unknown [id number] 2.16.84 0.1.531520.3.579.2.593 1994 Unknown [id number] 2.16.84 0.1.750262.3.579.2.593 1994 Unknown [id number] 2.16.84 0.1.140966.3.579.2.593 1994 Unknown [id number] 2.16.84 0.1.169718.3.579.2.593 1994 Unknown [id number] 2.16.84 0.1.644007.3.579.2.593 1994 Unknown [id number] 2.16.84 0.1.696851.3.579.2.593 1994 Unknown [id number] 2.16.84 0.1.301536.3.579.2.593 1994 Unknown [id number] 2.16.84 0.1.151255.3.579.2.593 1994 Unknown [id number] 2.16.84 0.1.958815.3.579.2.593 1994 Unknown [id number] 2.16.840 .1.348737.3.579.2.1259 1959 Self-pay [id number] 1959 Unknown [id number] Unknown [id number] 2.16.84 0.1.981591.3.579.2.593 Summary Purpose Family History No Family History Records FoundNo Family History Records Found Advance Directives No Advanced Directives Records FoundNo Advanced Directives Records Found Additional Source Comments INFORMATION SOURCE (unrecogn ized section and content) DATE CREATED AUTHOR 07/15/2021 [facility] DATE CREATED AUTHOR [facility]S ORGANIZ [facility] 03/04/2023 [facility] dicne Specialists [facility] FOR RECORDS PERTAINING TO PATIENTS WHO [...] BE BASED ON THE PRIMARY CLINICAL RECORDS. [facility]. provides no warranty or guarantee of the accuracy or completeness of information in this document.
--- OUTSIDE RECORDS SUMMARY | 2023-04-19 08:52 | XMS_ITS | CCD ---
Author Name Unknown Address [address] [place] [address] Organization [facility] [place] Care Team Providers Care Chemical Dependency Professional Name Role Phone NATALIIA, DR EPPERSON Attending [...] Care Unavailable DONNA, DR BERG Consulting Unavailable DONAN, DR BERG Admitting Unavailable DR ZAC DOCTOR [...] 07-14-2021 Episodic Other aftercare (1 source) Other shelter (current) drug therapy; Translations: [OTH SKILLED NURSING CURRENT DRUG THERAPY] Onset: 07-14-2021 Episodic Other [...] ON, URINEon 07-14-2021 Cannabinoid Positive Abnormal [facility] Comment on above: Performed By: #### C T/NGNA #### [facility] [address] [place] [address] Dr. Kamaljit Spears THC GC/MS Conf >750 Normal Cutoff=10 [facility] Comment on above: Performed By: #### C T/NGNA #### [facility] [address] [place] [address] Dr. Kamaljit Reich ANTIBODY ID PANELon 07-07-19 ANTIBODY ID PANEL Antibody ID Anti-D Normal [facility] Comment on above: Performed By: #### A BID #### [facility] [address] [place] [address] Dr. Kamaljit Reich CBC AUTO DIFFon 07-02-2021 BASO # 0.0 103/ul Normal 0.0-0.1 [facility] Comment on above: Performed By: #### A 1C #### [facility] [address] [place] [address] Dr. Kamaljit Reich Basophils/100 WBC (Bld) 0.3 % Normal 0.2-2.0 [facility] Comment on above: Performed By: #### A 1C #### [facility] [address] [place] [address] Dr. Kamaljit Reich EO # 0.1 103/ul Normal 0.0-0.7 [facility] Comment on above: Performed By: #### A 1C #### [facility] [address] [place] [address] Dr. Kamaljit Reich Eosinophils/100 WBC (Bld) 0.5 % Critically low 0.9-7.0 [facility] Comment on above: Performed By: #### A 1C #### [facility] [address] [place] [address] Dr. Kamaljit Reich Erythrocyte distribution width (RBC) [Ratio] 12.2 % Normal 11.0-15.0 [facility] Comment on above: Performed By: #### A 1C #### [facility] [address] [place] [address] Dr. Kamaljit Reich Hematocrit (Bld) [Volume fraction] 38.6 % Normal 36.0-48.0 [facility] Comment on above: Performed By: #### A 1C #### [facility] [address] [place] [address] Dr. Kamaljit Reich Hemoglobin (Bld) [Mass/Vol] 12.5 g/dL Normal 12.0-16.0 [facility] Comment on above: Performed By: #### A 1C #### [facility] [address] [address] [address] Kamaljit Reich IG # 0.06 10e3/ul Critically high 0.00-0.03 [facility] Comment on above: Performed By: #### A 1C #### [facility] [address] [address] [address] Kamaljit Reich IG % 0.5 % Normal 0.0-0.5 [facility] Comment on above: Performed By: #### A 1C #### [facility] [address] [place] [address] Dr. Kamaljit Reich LYMPH # 1.2 103/ul Normal 1.2-3.8 [facility] Comment on above: Performed By: #### A 1C #### [facility] [address] [place] [address] Dr. Kamaljit Reich Lymphocytes/100 WBC (Bld) 9.8 % Critically low 20.5-60.0 [facility] Comment on above: Performed By: #### A 1C #### [facility] [address] [place] [address] Dr. Kamaljit Reich MANUAL DIFF REQ NO Normal [facility] Comment on above: Performed By: #### A 1C #### [facility] [address] [place] [address] Dr. Kamaljit Reich MCH (RBC) [Entitic mass] 28.2 pg Normal 26.7-34.0 [facility] Comment on above: Performed By: #### A 1C #### [facility] [address] [place] [address] Dr. Kamaljit Reich MCHC (RBC) [Mass/Vol] 32.4 g/dL Normal 29.9-35.2 [facility] Comment on above: Performed By: #### A 1C #### [facility] [address] [place] [address] Dr. Kamaljit Reich MCV (RBC) [Entitic vol] 87.1 fL Normal 81.0-99.0 [facility] Comment on above: Performed By: #### A 1C #### [facility] [address] [address] [address] Kamaljit Reich MONO # 0.8 103/ul Normal 0.3-0.8 [facility] Comment on above: Performed By: #### A 1C #### [facility] [address] [address] [address] Kamaljit Reich Monocytes/100 WBC (Bld) 6.1 % Normal 1.7-12.0 [facility] Comment on above: Performed By: #### A 1C #### [facility] [address] [place] [address] Dr. Kamaljit Reich NEUT # 10.2 103/ul Critically high 1.4-6.5 [facility] Comment on above: Performed By: #### A 1C #### [facility] [address] [place] [address] Dr. Kamaljit Reich Neutrophils/100 WBC (Bld) 82.8 % Critically high 43.0-75.0 [facility] Comment on above: Performed By: #### A 1C #### [facility] [address] [place] [address] Dr. Kamaljit Reich Platelet mean volume (Bld) [Entitic vol] 10.5 fL Normal 9.5-13.5 [facility] Comment on above: Performed By: #### A 1C #### [facility] [address] [place] [address] Dr. Kamaljit Reich PLT 214 103/ul Normal 150-450 [facility] Comment on above: Performed By: #### A 1C #### [facility] [address] [place] [address] Dr. Kamaljit Reich RBC 4.43 106/ul Normal 4.20-5.40 [facility] Comment on above: Performed By: #### A 1C #### [facility] [address] [place] [address] Dr. Kamaljit Reich WBC 12.3 103/ul Critically high 4.0-11.0 [facility] Comment on above: Performed By: #### A 1C #### [facility] [address] [place] [address] Dr. Kamaljit Reich CBC AUTO DIFFon 07-01-2021 BASO # 0.0 103/ul Normal 0.0-0.1 [facility] Comment on above: Performed By: #### A 1C #### [facility] [address] [place] [address] Dr. Kamaljit Reich Basophils/100 WBC (Bld) 0.2 % Normal 0.2-2.0 [facility] Comment on above: Performed By: #### A 1C #### [facility] [address] [place] [address] Dr. Kamaljit Reich EO # 0.0 103/ul Normal 0.0-0.7 [facility] Comment on above: Performed By: #### A 1C #### [facility] [address] [place] [address] Dr. Kamaljit Reich Eosinophils/100 WBC (Bld) 0.5 % Critically low 0.9-7.0 [facility] Comment on above: Performed By: #### A 1C #### [facility] [address] [place] [address] Dr. Kamaljit Reich Erythrocyte distribution width (RBC) [Ratio] 12.4 % Normal 11.0-15.0 [facility] Comment on above: Performed By: #### A 1C #### [facility] [address] [place] [address] Dr. Kamaljit Reich Hematocrit (Bld) [Volume fraction] 38.8 % Normal 36.0-48.0 [facility] Comment on above: Performed By: #### A 1C #### [facility] [address] [place] [address] Dr. Kamaljit Reich Hemoglobin (Bld) [Mass/Vol] 12.8 g/dL Normal 12.0-16.0 [facility] Comment on above: Performed By: #### A 1C #### [facility] [address] [place] [address] Dr. Kamaljit Reich IG # 0.02 10e3/ul Normal 0.00-0.03 [facility] Comment on above: Performed By: #### A 1C #### [facility] [address] [place] [address] Dr. Kamaljit Reich IG % 0.2 % Normal 0.0-0.5 [facility] Comment on above: Performed By: #### A 1C #### [facility] [address] [place] [address] Dr. Kamaljit Reich LYMPH # 1.4 103/ul Normal 1.2-3.8 [facility] Comment on above: Performed By: #### A 1C #### [facility] [address] [place] [address] Dr. Kamaljit Reich Lymphocytes/100 WBC (Bld) 15.6 % Critically low 20.5-60.0 [facility] Comment on above: Performed By: #### A 1C #### [facility] [address] [place] [address] Dr. Kamaljit Reich MANUAL DIFF REQ NO Normal [facility] Comment on above: Performed By: #### A 1C #### [facility] [address] [place] [address] Dr. Kamaljit Reich MCH (RBC) [Entitic mass] 27.7 pg Normal 26.7-34.0 [facility] Comment on above: Performed By: #### A 1C #### [facility] [address] [place] [address] Dr. Kamaljit Reich MCHC (RBC) [Mass/Vol] 33.0 g/dL Normal 29.9-35.2 [facility] Comment on above: Performed By: #### A 1C #### [facility] [address] [place] [address] Dr. Kamaljit Reich MCV (RBC) [Entitic vol] 84.0 fL Normal 81.0-99.0 [facility] Comment on above: Performed By: #### A 1C #### [facility] [address] [place] [address] Dr. Kamaljit Reich MONO # 0.4 103/ul Normal 0.3-0.8 [facility] Comment on above: Performed By: #### A 1C #### [facility] [address] [place] [address] Dr. Kamaljit Reich Monocytes/100 WBC (Bld) 5.0 % Normal 1.7-12.0 [facility] Comment on above: Performed By: #### A 1C #### [facility] [address] [place] [address] Dr. Kamaljit Reihc NEUT # 7.0 103/ul Critically high 1.4-6.5 [facility] Comment on above: Performed By: #### A 1C #### [facility] [address] [place] [address] Dr. Kamaljit Reich Neutrophils/100 WBC (Bld) 78.5 % Critically high 43.0-75.0 [facility] Comment on above: Performed By: #### A 1C #### [facility] [address] [place] [address] Dr. Kamaljit Reich Platelet mean volume (Bld) [Entitic vol] 10.7 fL Normal 9.5-13.5 [facility] Comment on above: Performed By: #### A 1C #### [facility] [address] [place] [address] Dr. Kamaljit Reich PLT 228 103/ul Normal 150-450 [facility] Comment on above: Performed By: #### A 1C #### [facility] [address] [place] [address] Dr. Kamaljit Reich RBC 4.62 106/ul Normal 4.20-5.40 [facility] Comment on above: Performed By: #### A 1C #### [facility] [address] [place] [address] Dr. Kamaljit Reich WBC 8.9 103/ul Normal 4.0-11.0 [facility] Comment on above: Performed By: #### A 1C #### [facility] [address] [place] [address] Dr. Kamaljit Reich Covid-19 PCR ([facility])on 06-04 SARS-CoV-2 (COVID-19) RNA NELY+probe Ql (Unsp spec) Not detected Normal NOT DETECTED [facility] Comment on above: Result Comment: When diagnostic [...] for this test is supported by the [place] of Health and Human Service's declaration that [...] used). Performed By: #### R PRQ #### [facility] [address] [place] [address] Dr. Kamaljit Reich DRUG SCREEN RAPID (URINE)on 07-01-2021 AMP Negative Normal NEGATIVE [facility] Comment on above: Performed By: #### A 1C #### [facility] [address] [place] [address] Dr. Kamaljit Reich BAR Negative Normal NEGATIVE [facility] Comment on above: Performed By: #### A 1C #### [facility] [address] [place] [address] Dr. Kamaljit Reich BUP Positive Abnormal NEGATIVE [facility] Comment on above: Performed By: #### A 1C #### [facility] [address] [place] [address] Dr. Kamaljit Reich BZO Negative Normal NEGATIVE [facility] Comment on above: Performed By: #### A 1C #### [facility] [address] [place] [address] Dr. Kamaljit Reich NOEMI Negative Normal NEGATIVE [facility] Comment on above: Performed By: #### A 1C #### [facility] [address] [place] [address] Dr. Kamaljit Reich CUT-OFFS SEE BELOW Normal [facility] Comment on above: Result Comment: AMP (Amphetamine): 500ng/mL, BAR (Barbituates): 200 ng/mL, BZO (Benzodiazepines): 150 ng/mL, BUP (Buprenorphine): 10 ng/mL, NOEMI (Cocaine): 150 ng/mL, mAMP (Methamphetamine): 500 ng/mL, MTD (Methadone): 200 ng/mL, OPI (Opiates): 100 ng/mL, OXY (Oxycodone): 100 ng/mL, PCP (Phencyclidine): 25 ng/mL, PPX (Propoxyphene): 300 ng/mL, THC (Cannabinoids): 50 ng/mL, TCA (Trycyclic Antidepressants): 300 ng/mL Performed By: #### A 1C #### [facility] [address] [place] [address] Dr. Kamaljit Reich DRUG CUT HEADER DRUG CLASS TEST SYSTEM CUT-OFF CONCENTRATIONS ARE FOLLOWS: Normal [facility] Comment on above: Performed By: #### A 1C #### [facility] [address] [place] [address] Dr. Kamaljit Reich mAMP Negative Normal NEGATIVE [facility] Comment on above: Performed By: #### A 1C #### [facility] [address] [place] [address] Dr. Kamaljit Reich MTD Negative Normal NEGATIVE [facility] Comment on above: Performed By: #### A 1C #### [facility] [address] [place] [address] Dr. Kamaljit Reich OPI Negative Normal NEGATIVE [facility] Comment on above: Performed By: #### A 1C #### [facility] [address] [place] [address] Dr. Kamaljit Reich OXY Negative Normal NEGATIVE [facility] Comment on above: Performed By: #### A 1C #### [facility] [address] [place] [address] Dr. Kamaljit Reich PCP Negative Normal NEGATIVE [facility] Comment on above: Performed By: #### A 1C #### [facility] [address] [place] [address] Dr. Kamaljit Reich PPX Negative Normal NEGATIVE [facility] Comment on above: Performed By: #### A 1C #### [facility] [address] [place] [address] Dr. Kamaljit Reich TCA Negative Normal NEGATIVE [facility] Comment on above: Performed By: #### A 1C #### [facility] [address] [address] [address] Kamaljit Reich THC Positive Abnormal NEGATIVE [facility] Comment on above: Performed By: #### A 1C #### [facility] [address] [address] [address] Kamaljit Reich TYPE AND SCREENon 07-01-2021 TYPE AND SCREEN Negative Normal [facility] Comment on above: Performed By: #### T NS #### [facility] [address] [address] [address] Kamaljit Reich GROUP B STREP CULTUREon [...] S F Tetracycline >=16 R F Normal [facility] Comment on above: Performed By: #### R PRQ #### [facility] [address] [place] [address] Dr. Kamaljit Reich US PREG AMNIOTIC FLUID [...] by: JASE JONES Date: 2021-06-25 11:28 Normal [facility] US PREG AMNIOTIC FLUID VOLUM Eliezer [...] by: LEANDRA BUSTOS Date: 2021-06-11 11:26 Normal [facility] GLYCOHEMOGLOBIN A1Con 2021 ADA RECOMMENDATION ADA THERAPEUTIC TARGET 6.0 - 7.0 ACTION SUGGESTED > 7.0 Normal [facility] Comment on above: Performed By: #### A 1C #### [facility] [address] [place] [address] Dr. Kamaljit Reich Glucose [Mass/Vol] 103 mg/dL Normal [facility] Comment on above: Performed By: #### A 1C #### [facility] [address] [place] [address] Dr. Kamaljit Reich HbA1c (Bld) [Mass fraction] 5.2 % Normal <=6.0 [facility] Comment on above: Performed By: #### A 1C #### [facility] [address] [place] [address] Dr. Kamaljit Reich HEMOGRAM AND PLATELon 2021 Hematocrit (Bld) [Volume fraction] 33.7 % Critically low 36.0-48.0 [facility] Comment on above: Performed By: #### A 1C #### [facility] [address] [place] [address] Dr. Kamaljit Reich Hemoglobin (Bld) [Mass/Vol] 11.0 g/dL Critically low 12.0-16.0 [facility] Comment on above: Performed By: #### A 1C #### [facility] [address] [place] [address] Dr. Kamaljit Reich MCH (RBC) [Entitic mass] 27.7 pg Normal 26.7-34.0 [facility] Comment on above: Performed By: #### A 1C #### [facility] [address] [place] [address] Dr. Kamaljit Reich MCHC (RBC) [Mass/Vol] 32.6 g/dL Normal 29.9-35.2 [facility] Comment on above: Performed By: #### A 1C #### [facility] [address] [place] [address] Dr. Kamaljit Reich MCV (RBC) [Entitic vol] 84.9 fL Normal 81.0-99.0 [facility] Comment on above: Performed By: #### A 1C #### [facility] [address] [place] [address] Dr. Kamaljit Reich PLT 245 103/ul Normal 150-450 [facility] Comment on above: Performed By: #### A 1C #### [facility] [address] [place] [address] Dr. Kamaljit Reich RBC 3.97 106/ul Critically low 4.20-5.40 [facility] Comment on above: Performed By: #### A 1C #### [facility] [address] [place] [address] Dr. Kamaljit Reich WBC 8.7 103/ul Normal 4.0-11.0 [facility] Comment on above: Performed By: #### A 1C #### [facility] [address] [place] [address] Dr. Kamaljit Reich RHOGAMon 05-16-2021 RHOGAM Status Information Issued Quantity 1 Product ID Rh Immune Globulin Lot Number [id number] Issue Date/Time [id number] Normal [facility] Comment on above: Performed By: #### R PRQ #### [facility] [address] [place] [address] Dr. Kamaljit Reich US PREG BIOPHY W NON STRESSo n 05-12-2021 US PREG BIOPHY W NON STRESS Ultrasound biophysical profile CLINICAL: Evaluate well-being. TECHNIQUE: Dedicated ultrasound imaging of the fetus was performed to include the tax professional's evaluation of biophysical profile. FINDINGS: Comparison: Ultrasound [...] NICOLE CARDOSO Date: 2021-05-12 13:13 Normal [facility] US PREG GROWTHon 05-12-2021 US PREG GROWTH [...] EFW: 3 lbs. 3 oz., 23% FL/AC: 0.283675 FL/BPD: 0.131272 HC/AC: 1.261164 GESTATIONAL AGE: Age by EDC: 30 weeks 2 days QUINN by EDC: 07/19/2021 Age by US: 30 weeks 1 day QUINN by US: 07/20/2021 IMPRESSION: heart rate between 101-127 Normal interval growth Electronically authenticated by: LEANDRA BUSTOS Date: 2021-05-12 11:36 Normal [facility] TYPE AND SCREENon 05-05-2021 TYPE AND SCREEN Negative Normal [facility] Comment on above: Performed By: #### T NS #### [facility] [address] [place] [address] Dr. Kamaljit Reich CHLAMYDIA/GONOCOCCUS NELY ( AB/URINE/PAPon 05-01-2021 Chlamydia trachomatis, NELY Negative Normal Negative [facility] Comment on above: Performed By: #### C T/NGNA #### [facility] [address] [address] [address] Kamaljit Reich Neisseria gonorrhoeae, NELY Negative Normal Negative [facility] Comment on above: Performed By: #### C T/NGNA #### [facility] [address] [address] [address] Kamaljit Reich VAGINITIS/VAGINOSIS DNA PROB Eliezer 04-30-2021 Fernanda species Negative Normal Negative [facility] Comment on above: Performed By: #### A 1C #### [facility] [address] [place] [address] Dr. Kamaljit Reich Gardnerella vaginalis Negative Normal Negative [facility] Comment on above: Performed By: #### A 1C #### [facility] [address] [place] [address] Dr. Kamaljit Reich Trichomonas vaginalis Negative Normal Negative [facility] Comment on above: Performed By: #### A 1C #### [facility] [address] [place] [address] Dr. Kamaljit Reich US PREG PLACENTAon US [...] by: LEANDRA BUSTOS Date: 2021-04-01 16:07 Normal [facility] PAP ACOG PANEL 2: 21 to 29on 03-10-2021 . . Normal [facility] Comment on above: Performed By: #### C T/NGNA #### [facility] [address] [place] [address] Dr. Kamaljit Reich Age Gdln ACOG Testing - Normal [facility] Comment on above: Performed By: #### C T/NGNA #### [facility] [address] [place] [address] Dr. Kamaljit Reich DIAGNOSIS: Comment [facility] Comment on above: Result Comment: NEGA TIVE FOR INTRAEPITHELIAL LESION OR MALIGNANCY. THIS SPECIMEN WAS RESCREENED PART OF OUR AERONAUTICAL ENGINEER PROGRAM. Performed By: #### C T/NGNA #### [facility] [address] [place] [address] Dr. Kamaljit Reich Methodology: Comment Normal [facility] Comment on above: Result Comment: This liquid based ThinPrep(R) pap test was screened with the use of an image guided system. Performed By: #### C T/NGNA #### [facility] [address] [place] [address] Dr. Kamaljit Reich Note: Comment Normal [facility] Comment on above: Result Comment: The Pap smear is a screening test designed to aid in the detection of premalignant and malignant conditions of the uterine cervix. It is not a diagnostic procedure and should not be used as the sole means of detecting cervical cancer. Both false-positive and false-negative reports do occur. . Performed By: #### C T/NGNA #### [facility] [address] [place] [address] Dr. Kamaljit Reich Performed by: Comment Normal [facility] Comment on above: Result Comment: Christin Abdul, Plate Painter Apprentice (ASCP) Performed By: #### C T/NGNA #### [facility] [address] [place] [address] Dr. Kamaljit Reich QC reviewed by: Comment Normal [facility] Comment on above: Result Comment: Radha Alejandre, Supervisory Plate Painter Apprentice (ASCP) Performed By: #### C T/NGNA #### [facility] [address] [place] [address] Dr. Kamaljit Reich Reflex Criteria: Comment Normal [facility] Comment on above: Result Comment: The HPV DNA reflex criteria were not met with this specimen result therefore, no HPV testing was performed. . Performed By: #### C T/NGNA #### [facility] [address] [place] [address] Dr. Kamaljit Reich Specimen adequacy: Comment Normal [facility] Comment on above: Result Comment: Sati sfactory for evaluation. Endocervical and/or squamous metaplastic cells (endocervical component) are present. Performed By: #### C T/NGNA #### [facility] [address] [place] [address] Dr. Kamaljit Reich CHLAMYDIA/GONOCOCCUS NELY (SW AB/URINE/PAPon 03-07-2021 Chlamydia trachomatis, NELY Negative Normal Negative [facility] Comment on above: Performed By: #### C T/NGNA #### [facility] [address] [place] [address] Dr. Kamaljit Reich Neisseria gonorrhoeae, NELY Negative Normal Negative [facility] Comment on above: Performed By: #### C T/NGNA #### [facility] [address] [place] [place] [address] Dr. Kamaljit Reich VAGINITIS/VAGINOSIS DNA PROB Eliezer 03-06-2021 Fernanda species Negative Normal Negative [facility] Comment on above: Performed By: #### V AGINT #### [facility] [address] [place] [place] [address] Dr. Kamaljit Reich Gardnerella vaginalis Negative Normal Negative [facility] Comment on above: Performed By: #### V AGINT #### [facility] [address] [place] [place] [address] Dr. Kamaljit Reich Trichomonas vaginalis Negative Normal Negative [facility] Comment on above: Performed By: #### V AGINT #### [facility] [address] [place] [address] Dr. Kamaljit Reich US PREG ANATOMY SINGLEon [...] by ultrasound, 13th percentile by expected) FL/AC: 0.480920 FL/BPD: 0.749968 HC/AC: 1.785710 GESTATIONAL AGE: Age by EDC: 20 weeks, 3 days QUINN by EDC: 07/19/2021 Age by current US: 19 weeks, 2 days QUINN by current US: 07/27/2021 IMPRESSION: 1. Single live intrauterine with growth detailed above. 2. Anterior, low-lying placenta. Electronically authenticated by: JASE JONES Date: 2021-03-04 17:10 Normal [facility] HEP B SURFACE ANTIGEN SCREEN on 12-28-2020 HBsAg Screen Negative Normal Negative [facility] Comment on above: Performed By: #### C T/NGNA #### [facility] [address] [address] [address] Kamaljit Reich HEPATITIS C VIRUS AB W/ REFL EX QUANTon 12-28-2020 HCV AB <0.1 Normal 0.0-0.9 [facility] Comment on above: Performed By: #### A 1C #### [facility] [address] [address] [address] Kamaljit Reich Interpretation: Comment Normal [facility] Comment on above: Result Comment: Nega tive Not infected with HCV, unless recent infection is suspected or other evidence exists to indicate HCV infection. Performed By: #### A 1C #### [facility] [address] [address] [address] Kamaljit Reich HIV 1 AND 2 WITH REFLEXon HIV Screen 4th Generation wRfx Non-Reactive Normal Non Reactive [facility] Comment on above: Performed By: #### A 1C #### [facility] [address] [place] [address] Dr. Kamaljit Reich RPR QUANTon 12-28-2020 Rapid Plasma Reagin, Quant Non-Reactive Normal NonRea<1:1 [facility] Comment on above: Performed By: #### R PRQ #### [facility] [address] [place] [address] Dr. Kamaljit Reich RUBELLA AB IGGon 12-28-2020 Rubella Antibodies, IgG 1.39 index Normal Immune >0.99 [facility] Comment on above: Result Comment: Non- immune <0.90 Equivocal 0.90 - 0.99 Immune >0.99 Performed By: #### A 1C #### [facility] [address] [place] [address] Dr. Kamaljit Reich CBC AUTO DIFFon 12-27-2020 BASO # 0.0 103/ul Normal 0.0-0.1 [facility] Comment on above: Performed By: #### C T/NGNA #### [facility] [address] [place] [address] Dr. Kamaljit Reich Basophils/100 WBC (Bld) 0.3 % Normal 0.2-2.0 [facility] Comment on above: Performed By: #### C T/NGNA #### [facility] [address] [place] [address] Dr. Kamaljit Reich EO # 0.1 103/ul Normal 0.0-0.7 [facility] Comment on above: Performed By: #### C T/NGNA #### [facility] [address] [place] [address] Dr. Kamaljit Reich Eosinophils/100 WBC (Bld) 1.0 % Normal 0.9-7.0 [facility] Comment on above: Performed By: #### C T/NGNA #### [facility] [address] [place] [address] Dr. Kamaljit Reich Erythrocyte distribution width (RBC) [Ratio] 12.2 % Normal 11.0-15.0 [facility] Comment on above: Performed By: #### C T/NGNA #### [facility] [address] [address] [address] Kamaljit Reich Hematocrit (Bld) [Volume fraction] 37.7 % Normal 36.0-48.0 [facility] Comment on above: Performed By: #### C T/NGNA #### [facility] [address] [place] [address] Dr. Kamaljit Reich Hemoglobin (Bld) [Mass/Vol] 12.5 g/dL Normal 12.0-16.0 [facility] Comment on above: Performed By: #### C T/NGNA #### [facility] [address] [place] [address] Dr. Kamaljit Reich IG # 0.02 10e3/ul Normal 0.00-0.03 [facility] Comment on above: Performed By: #### C T/NGNA #### [facility] [address] [place] [address] Dr. Kamaljit Reich IG % 0.3 % Normal 0.0-0.5 [facility] Comment on above: Performed By: #### C T/NGNA #### [facility] [address] [place] [address] Dr. Kamaljit Reich LYMPH # 1.3 103/ul Normal 1.2-3.8 [facility] Comment on above: Performed By: #### C T/NGNA #### [facility] [address] [place] [address] Dr. Kamaljit Reich Lymphocytes/100 WBC (Bld) 18.6 % Critically low 20.5-60.0 [facility] Comment on above: Performed By: #### C T/NGNA #### [facility] [address] [place] [address] Dr. Kamaljit Reich MANUAL DIFF REQ NO Normal [facility] Comment on above: Performed By: #### C T/NGNA #### [facility] [address] [place] [address] Dr. Kamaljit Reich MCH (RBC) [Entitic mass] 28.8 pg Normal 26.7-34.0 [facility] Comment on above: Performed By: #### C T/NGNA #### [facility] [address] [place] [address] Dr. Kamaljit Reich MCHC (RBC) [Mass/Vol] 33.2 g/dL Normal 29.9-35.2 [facility] Comment on above: Performed By: #### C T/NGNA #### [facility] [address] [place] [address] Dr. Kamaljit Reich MCV (RBC) [Entitic vol] 86.9 fL Normal 81.0-99.0 [facility] Comment on above: Performed By: #### C T/NGNA #### [facility] [address] [place] [address] Dr. Kamaljit Reich MONO # 0.3 103/ul Normal 0.3-0.8 [facility] Comment on above: Performed By: #### C T/NGNA #### [facility] [address] [place] [address] Dr. Kamaljit Reich Monocytes/100 WBC (Bld) 5.1 % Normal 1.7-12.0 [facility] Comment on above: Performed By: #### C T/NGNA #### [facility] [address] [place] [address] Dr. Kamaljit Reich NEUT # 5.0 103/ul Normal 1.4-6.5 [facility] Comment on above: Performed By: #### C T/NGNA #### [facility] [address] [place] [address] Dr. Kamaljit Reich Neutrophils/100 WBC (Bld) 74.7 % Normal 43.0-75.0 [facility] Comment on above: Performed By: #### C T/NGNA #### [facility] [address] [place] [address] Dr. Kamaljit Reich Platelet mean volume (Bld) [Entitic vol] 10.2 fL Normal 9.5-13.5 [facility] Comment on above: Performed By: #### C T/NGNA #### [facility] [address] [place] [address] Dr. Kamaljit Reich PLT 204 103/ul Normal 150-450 [facility] Comment on above: Performed By: #### C T/NGNA #### [facility] [address] [place] [address] Dr. Kamaljit Reich RBC 4.34 106/ul Normal 4.20-5.40 [facility] Comment on above: Performed By: #### C T/NGNA #### [facility] [address] [place] [address] Dr. Kamaljit Reich WBC 6.7 103/ul Normal 4.0-11.0 [facility] Comment on above: Performed By: #### C T/NGNA #### [facility] [address] [place] [address] Dr. Kamaljit Reich CULTURE URINEon 12-27-2020 CULTURE URINE Culture Observations : LIGHT GROWTH OF MIXED GENITAL MADY. NO POTENTIAL PATHOGENS SEEN. Normal [facility] Comment on above: Performed By: #### U RCX #### [facility] [address] [place] [address] Dr. Kamaljit Reich DIRECT COOMBSon 12-27-2020 DIRECT MARY Negative Normal [facility] Comment on above: Performed By: #### D IRCMB #### [facility] [address] [place] [address] Dr. Kamaljit Reich GLYCOHEMOGLOBIN A1Con 2020 ADA RECOMMENDATION ADA THERAPEUTIC TARGET 6.0 - 7.0 ACTION SUGGESTED > 7.0 Normal [facility] Comment on above: Performed By: #### A 1C #### [facility] [address] [place] [address] Dr. Kamaljit Reich Glucose [Mass/Vol] 100 mg/dL Normal [facility] Comment on above: Performed By: #### A 1C #### [facility] [address] [place] [place] [address] Dr. Kamaljit Reich HbA1c (Bld) [Mass fraction] 5.1 % Normal <=6.0 [facility] Comment on above: Performed By: #### A 1C #### [facility] [address] [place] [place] [address] Dr. Kamaljit Reich PARDEEP BOX TEST PT SEND OUTo n 12-27-2020 SENT TO REF LAB 12/27/2020 Normal [facility] Comment on above: Performed By: #### A 1C #### [facility] [address] [address] [address] Kamaljit Reich TYPE AND SCREENon 12-27-2020 TYPE AND SCREEN Negative Normal [facility] Comment on above: Performed By: #### T NS #### [facility] [address] [address] [address] 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 Approach DR ZHOU WILLIAM Payers Date Payer Category Payer Medicaid [id number] 1994 [facility] [id number] 2.16.84 0.1.544779.3.579.2.593 1994 Unknown [id number] 2.16.84 0.1.584620.3.579.2.593 1994 Unknown [id number] 2.16.84 0.1.516730.3.579.2.593 1994 Unknown [id number] 2.16.84 0.1.004710.3.579.2.593 1994 Unknown [id number] 2.16.84 0.1.212101.3.579.2.593 1994 Unknown [id number] 2.16.84 0.1.936335.3.579.2.593 1994 Unknown [id number] 2.16.84 0.1.207675.3.579.2.593 1994 Unknown [id number] 2.16.84 0.1.953755.3.579.2.593 1994 Unknown [id number] 2.16.84 0.1.029935.3.579.2.593 1994 Unknown [id number] 2.16.84 0.1.508600.3.579.2.593 1994 Unknown [id number] 2.16.84 0.1.710860.3.579.2.593 1994 Unknown [id number] 2.16.84 0.1.328745.3.579.2.593 1994 Unknown [id number] 2.16.84 0.1.673633.3.579.2.593 1994 Unknown [id number] 2.16.84 0.1.700773.3.579.2.593 1994 Unknown [id number] 2.16.84 0.1.061300.3.579.2.593 1994 Unknown [id number] 2.16.84 0.1.283487.3.579.2.593 1994 Unknown [id number] 2.16.84 0.1.381557.3.579.2.593 1994 Unknown [id number] 2.16.84 0.1.963021.3.579.2.593 1994 Unknown [id number] 2.16.84 0.1.197857.3.579.2.593 1994 Unknown [id number] 2.16.84 0.1.721307.3.579.2.593 1994 Unknown [id number] 2.16.84 0.1.273099.3.579.2.593 1994 Unknown [id number] 2.16.84 0.1.698805.3.579.2.593 1994 Unknown [id number] 2.16.84 0.1.048652.3.579.2.593 1994 Unknown [id number] 2.16.840 .1.998513.3.579.2.1259 1959 Self-pay [id number] 1959 Unknown [id number] Unknown [id number] 2.16.84 0.1.412242.3.579.2.593 Summary Purpose Family History No Family History Records FoundNo Family History Records Found Advance Directives No Advanced Directives Records FoundNo Advanced Directives Records Found Additional Source Comments INFORMATION SOURCE (unrecogn ized section and content) DATE CREATED AUTHOR 07/15/2021 [facility] DATE CREATED AUTHOR [facility]/04/2023 [facility] Specialists [facility] FOR RECORDS PERTAINING TO PATIENTS WHO ARE [...] BE BASED ON THE PRIMARY CLINICAL RECORDS. [facility]. provides no warranty or guarantee of the accuracy or completeness of information in this document.
== END 2023-03-31 13:42 | disposition home or self-care (01) ==
LOC: FBCO 07:06 → FBC 13:11
PROVIDERS: Visit Provider Obstetrics & Gynecology
DX: Z34.93 Encounter for supervision of normal pregnancy, unspecified, third trimester (principal)
CPT/HCPCS: 59025

== ENCOUNTER 2023-04-12 18:55 | Inpatient (IN) | payer OTHER, SELFPAY ==
[2023-04-12] VITALS (26 sets, daily range): BP systolic 104–141; BP diastolic 57–90; PULSE 50–104; RESP 16; TEMP 36.4; O2SAT 98
--- OUTSIDE RECORDS SUMMARY | 2023-04-12 18:37 | XMS_ITS | CCD ---
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 Kamaljit Spears THC GC/MS Conf >750 Normal Cutoff=10 [facility] Comment on above: Performed By: #### C T/NGNA #### [facility] [address] [place] [address] Dr. Kamaljit Reich ANTIBODY ID PANELon 07-07-19 ANTIBODY ID PANEL Antibody ID Anti-D Normal [facility] Comment on above: Performed By: #### A BID #### [facility] [address] [place] [address] Dr. Kamaljit Reich CBC AUTO DIFFon 07-02-2021 BASO # 0.0 103/ul Normal 0.0-0.1 [facility] Comment on above: Performed By: #### A 1C #### [facility] [address] [place] [address] Dr. Kamaljit Reich Basophils/100 WBC (Bld) 0.3 % Normal 0.2-2.0 [facility] Comment on above: Performed By: #### A 1C #### [facility] [address] [place] [address] Dr. Kamaljit Reich EO # 0.1 103/ul Normal 0.0-0.7 [facility] Comment on above: Performed By: #### A 1C #### [facility] [address] [place] [address] Dr. Kamaljit Reich Eosinophils/100 WBC (Bld) 0.5 % Critically low 0.9-7.0 [facility] Comment on above: Performed By: #### A 1C #### [facility] [address] [place] [address] Dr. Kamaljit Reich Erythrocyte distribution width (RBC) [Ratio] 12.2 % Normal 11.0-15.0 [facility] Comment on above: Performed By: #### A 1C #### [facility] [address] [place] [address] Dr. Kamaljit Reich Hematocrit (Bld) [Volume fraction] 38.6 % Normal 36.0-48.0 [facility] Comment on above: Performed By: #### A 1C #### [facility] [address] [place] [address] Dr. Kamaljit Reich Hemoglobin (Bld) [Mass/Vol] 12.5 g/dL Normal 12.0-16.0 [facility] Comment on above: Performed By: #### A 1C #### [facility] [address] [address] [address] Kamaljit Reich IG # 0.06 10e3/ul Critically high 0.00-0.03 [facility] Comment on above: Performed By: #### A 1C #### [facility] [address] [address] [address] Kamaljit Reich IG % 0.5 % Normal 0.0-0.5 [facility] Comment on above: Performed By: #### A 1C #### [facility] [address] [place] [address] Dr. Kamaljit Reich LYMPH # 1.2 103/ul Normal 1.2-3.8 [facility] Comment on above: Performed By: #### A 1C #### [facility] [address] [place] [address] Dr. Kamaljit Reich Lymphocytes/100 WBC (Bld) 9.8 % Critically low 20.5-60.0 [facility] Comment on above: Performed By: #### A 1C #### [facility] [address] [place] [address] Dr. Kamaljit Reich MANUAL DIFF REQ NO Normal [facility] Comment on above: Performed By: #### A 1C #### [facility] [address] [place] [address] Dr. Kamaljit Reich MCH (RBC) [Entitic mass] 28.2 pg Normal 26.7-34.0 [facility] Comment on above: Performed By: #### A 1C #### [facility] [address] [place] [address] Dr. Kamaljit Reich MCHC (RBC) [Mass/Vol] 32.4 g/dL Normal 29.9-35.2 [facility] Comment on above: Performed By: #### A 1C #### [facility] [address] [place] [address] Dr. Kamaljit Reich MCV (RBC) [Entitic vol] 87.1 fL Normal 81.0-99.0 [facility] Comment on above: Performed By: #### A 1C #### [facility] [address] [address] [address] Kamaljit Reich MONO # 0.8 103/ul Normal 0.3-0.8 [facility] Comment on above: Performed By: #### A 1C #### [facility] [address] [address] [address] Kamaljit Reich Monocytes/100 WBC (Bld) 6.1 % Normal 1.7-12.0 [facility] Comment on above: Performed By: #### A 1C #### [facility] [address] [place] [address] Dr. Kamaljit Reich NEUT # 10.2 103/ul Critically high 1.4-6.5 [facility] Comment on above: Performed By: #### A 1C #### [facility] [address] [place] [address] Dr. Kamaljit Reich Neutrophils/100 WBC (Bld) 82.8 % Critically high 43.0-75.0 [facility] Comment on above: Performed By: #### A 1C #### [facility] [address] [place] [address] Dr. Kamaljit Reich Platelet mean volume (Bld) [Entitic vol] 10.5 fL Normal 9.5-13.5 [facility] Comment on above: Performed By: #### A 1C #### [facility] [address] [place] [address] Dr. Kamaljit Reich PLT 214 103/ul Normal 150-450 [facility] Comment on above: Performed By: #### A 1C #### [facility] [address] [place] [address] Dr. Kamaljit Reich RBC 4.43 106/ul Normal 4.20-5.40 [facility] Comment on above: Performed By: #### A 1C #### [facility] [address] [place] [address] Dr. Kamaljit Reich WBC 12.3 103/ul Critically high 4.0-11.0 [facility] Comment on above: Performed By: #### A 1C #### [facility] [address] [place] [address] Dr. Kamaljit Reich CBC AUTO DIFFon 07-01-2021 BASO # 0.0 103/ul Normal 0.0-0.1 [facility] Comment on above: Performed By: #### A 1C #### [facility] [address] [place] [address] Dr. Kamaljit Reich Basophils/100 WBC (Bld) 0.2 % Normal 0.2-2.0 [facility] Comment on above: Performed By: #### A 1C #### [facility] [address] [place] [address] Dr. Kamaljit Reich EO # 0.0 103/ul Normal 0.0-0.7 [facility] Comment on above: Performed By: #### A 1C #### [facility] [address] [place] [address] Dr. Kamaljit Reich Eosinophils/100 WBC (Bld) 0.5 % Critically low 0.9-7.0 [facility] Comment on above: Performed By: #### A 1C #### [facility] [address] [place] [address] Dr. Kamaljit Reich Erythrocyte distribution width (RBC) [Ratio] 12.4 % Normal 11.0-15.0 [facility] Comment on above: Performed By: #### A 1C #### [facility] [address] [place] [address] Dr. Kamaljit Reich Hematocrit (Bld) [Volume fraction] 38.8 % Normal 36.0-48.0 [facility] Comment on above: Performed By: #### A 1C #### [facility] [address] [place] [address] Dr. Kamaljit Reich Hemoglobin (Bld) [Mass/Vol] 12.8 g/dL Normal 12.0-16.0 [facility] Comment on above: Performed By: #### A 1C #### [facility] [address] [place] [address] Dr. Kamaljit Reich IG # 0.02 10e3/ul Normal 0.00-0.03 [facility] Comment on above: Performed By: #### A 1C #### [facility] [address] [place] [address] Dr. Kamaljit Reich IG % 0.2 % Normal 0.0-0.5 [facility] Comment on above: Performed By: #### A 1C #### [facility] [address] [place] [address] Dr. Kamaljit Reich LYMPH # 1.4 103/ul Normal 1.2-3.8 [facility] Comment on above: Performed By: #### A 1C #### [facility] [address] [place] [address] Dr. Kamaljit Reich Lymphocytes/100 WBC (Bld) 15.6 % Critically low 20.5-60.0 [facility] Comment on above: Performed By: #### A 1C #### [facility] [address] [place] [address] Dr. Kamaljit Reich MANUAL DIFF REQ NO Normal [facility] Comment on above: Performed By: #### A 1C #### [facility] [address] [place] [address] Dr. Kamaljit Reich MCH (RBC) [Entitic mass] 27.7 pg Normal 26.7-34.0 [facility] Comment on above: Performed By: #### A 1C #### [facility] [address] [place] [address] Dr. Kamaljit Reich MCHC (RBC) [Mass/Vol] 33.0 g/dL Normal 29.9-35.2 [facility] Comment on above: Performed By: #### A 1C #### [facility] [address] [place] [address] Dr. Kamaljit Reich MCV (RBC) [Entitic vol] 84.0 fL Normal 81.0-99.0 [facility] Comment on above: Performed By: #### A 1C #### [facility] [address] [place] [address] Dr. Kamaljit Reich MONO # 0.4 103/ul Normal 0.3-0.8 [facility] Comment on above: Performed By: #### A 1C #### [facility] [address] [place] [address] Dr. Kamaljit Reich Monocytes/100 WBC (Bld) 5.0 % Normal 1.7-12.0 [facility] Comment on above: Performed By: #### A 1C #### [facility] [address] [place] [address] Dr. Kamaljit Reich NEUT # 7.0 103/ul Critically high 1.4-6.5 [facility] Comment on above: Performed By: #### A 1C #### [facility] [address] [place] [address] Dr. Kamaljit Reich Neutrophils/100 WBC (Bld) 78.5 % Critically high 43.0-75.0 [facility] Comment on above: Performed By: #### A 1C #### [facility] [address] [place] [address] Dr. Kamaljit Reich Platelet mean volume (Bld) [Entitic vol] 10.7 fL Normal 9.5-13.5 [facility] Comment on above: Performed By: #### A 1C #### [facility] [address] [place] [address] Dr. Kamaljit Reich PLT 228 103/ul Normal 150-450 [facility] Comment on above: Performed By: #### A 1C #### [facility] [address] [place] [address] Dr. Kamaljit Reich RBC 4.62 106/ul Normal 4.20-5.40 [facility] Comment on above: Performed By: #### A 1C #### [facility] [address] [place] [address] Dr. Kamaljit Reich WBC 8.9 103/ul Normal 4.0-11.0 [facility] Comment on above: Performed By: #### A 1C #### [facility] [address] [place] [address] Dr. Kamaljit Reich Covid-19 PCR ([facility])on 06-04 SARS-CoV-2 (COVID-19) RNA NELY+probe Ql (Unsp spec) Not detected Normal NOT DETECTED [facility] Comment on above: Result Comment: When diagnostic [...] for this test is supported by the [employer]ished [employer] Inspector of Health and Human Service's declaration that [...] used). Performed By: #### R PRQ #### [facility] [address] [place] [address] Dr. Kamaljit Reich DRUG SCREEN RAPID (URINE)on 07-01-2021 AMP Negative Normal NEGATIVE [facility] Comment on above: Performed By: #### A 1C #### [facility] [address] [place] [address] Dr. Kamaljit Reich BAR Negative Normal NEGATIVE [facility] Comment on above: Performed By: #### A 1C #### [facility] [address] [place] [address] Dr. Kamaljit Reich BUP Positive Abnormal NEGATIVE [facility] Comment on above: Performed By: #### A 1C #### [facility] [address] [place] [address] Dr. Kamaljit Reich BZO Negative Normal NEGATIVE [facility] Comment on above: Performed By: #### A 1C #### [facility] [address] [place] [address] Dr. Kamaljit Reich NOEMI Negative Normal NEGATIVE [facility] Comment on above: Performed By: #### A 1C #### [facility] [address] [place] [address] Dr. Kamaljit Reich CUT-OFFS SEE BELOW Normal [facility] Comment on above: Result Comment: AMP (Amphetamine): 500ng/mL, BAR (Barbituates): 200 ng/mL, BZO (Benzodiazepines): 150 ng/mL, BUP (Buprenorphine): 10 ng/mL, NOEMI (Cocaine): 150 ng/mL, mAMP (Methamphetamine): 500 ng/mL, MTD (Methadone): 200 ng/mL, OPI (Opiates): 100 ng/mL, OXY (Oxycodone): 100 ng/mL, PCP (Phencyclidine): 25 ng/mL, PPX (Propoxyphene): 300 ng/mL, THC (Cannabinoids): 50 ng/mL, TCA (Trycyclic Antidepressants): 300 ng/mL Performed By: #### A 1C #### [facility] [address] [place] [address] Dr. Kamaljit Reich DRUG CUT HEADER DRUG CLASS TEST SYSTEM CUT-OFF CONCENTRATIONS ARE FOLLOWS: Normal [facility] Comment on above: Performed By: #### A 1C #### [facility] [address] [place] [address] Dr. Kamaljit Reich mAMP Negative Normal NEGATIVE [facility] Comment on above: Performed By: #### A 1C #### [facility] [address] [place] [address] Dr. Kamaljit Reich MTD Negative Normal NEGATIVE [facility] Comment on above: Performed By: #### A 1C #### [facility] [address] [place] [address] Dr. Kamaljit Reich OPI Negative Normal NEGATIVE [facility] Comment on above: Performed By: #### A 1C #### [facility] [address] [place] [address] Dr. Kamaljit Reich OXY Negative Normal NEGATIVE [facility] Comment on above: Performed By: #### A 1C #### [facility] [address] [place] [address] Dr. Kamaljit Reich PCP Negative Normal NEGATIVE [facility] Comment on above: Performed By: #### A 1C #### [facility] [address] [place] [address] Dr. Kamaljit Reich PPX Negative Normal NEGATIVE [facility] Comment on above: Performed By: #### A 1C #### [facility] [address] [place] [address] Dr. Kamaljit Reich TCA Negative Normal NEGATIVE [facility] Comment on above: Performed By: #### A 1C #### [facility] [address] [address] [address] Kamaljit Reich THC Positive Abnormal NEGATIVE [facility] Comment on above: Performed By: #### A 1C #### [facility] [address] [address] [address] Kamaljit Reich TYPE AND SCREENon 07-01-2021 TYPE AND SCREEN Negative Normal [facility] Comment on above: Performed By: #### T NS #### [facility] [address] [address] [address] Kamaljit Reich GROUP B STREP CULTUREon [...] S F Tetracycline >=16 R F Normal [facility] Comment on above: Performed By: #### R PRQ #### [facility] [address] [place] [address] Dr. Kamaljit Reich US PREG AMNIOTIC FLUID [...] by: JASE JONES Date: 2021-06-25 11:28 Normal [facility] US PREG AMNIOTIC FLUID VOLUM Eliezer 06-11-2021 [...] by: LEANDRA BUSTOS Date: 2021-06-11 11:26 Normal [facility] GLYCOHEMOGLOBIN A1Con 2021 ADA RECOMMENDATION ADA THERAPEUTIC TARGET 6.0 - 7.0 ACTION SUGGESTED > 7.0 Normal [facility] Comment on above: Performed By: #### A 1C #### [facility] [address] [place] [address] Dr. Kamaljit Reich Glucose [Mass/Vol] 103 mg/dL Normal [facility] Comment on above: Performed By: #### A 1C #### [facility] [address] [place] [address] Dr. Kamaljit Reich HbA1c (Bld) [Mass fraction] 5.2 % Normal <=6.0 [facility] Comment on above: Performed By: #### A 1C #### [facility] [address] [place] [address] Dr. Kamaljit Reich HEMOGRAM AND PLATELon 2021 Hematocrit (Bld) [Volume fraction] 33.7 % Critically low 36.0-48.0 [facility] Comment on above: Performed By: #### A 1C #### [facility] [address] [place] [address] Dr. Kamaljit Reich Hemoglobin (Bld) [Mass/Vol] 11.0 g/dL Critically low 12.0-16.0 [facility] Comment on above: Performed By: #### A 1C #### [facility] [address] [place] [address] Dr. Kamaljit Reich MCH (RBC) [Entitic mass] 27.7 pg Normal 26.7-34.0 [facility] Comment on above: Performed By: #### A 1C #### [facility] [address] [place] [address] Dr. Kamaljit Reich MCHC (RBC) [Mass/Vol] 32.6 g/dL Normal 29.9-35.2 [facility] Comment on above: Performed By: #### A 1C #### [facility] [address] [place] [address] Dr. Kamaljit Reich MCV (RBC) [Entitic vol] 84.9 fL Normal 81.0-99.0 [facility] Comment on above: Performed By: #### A 1C #### [facility] [address] [place] [address] Dr. Kamaljit Reich PLT 245 103/ul Normal 150-450 [facility] Comment on above: Performed By: #### A 1C #### [facility] [address] [place] [address] Dr. Kamaljit Reich RBC 3.97 106/ul Critically low 4.20-5.40 [facility] Comment on above: Performed By: #### A 1C #### [facility] [address] [place] [address] Dr. Kamaljit Reich WBC 8.7 103/ul Normal 4.0-11.0 [facility] Comment on above: Performed By: #### A 1C #### [facility] [address] [place] [address] Dr. Kamaljit Reich RHOGAMon 05-16-2021 RHOGAM Status Information Issued Quantity 1 Product ID Rh Immune Globulin Lot Number [id number] Issue Date/Time [id number] Normal [facility] Comment on above: Performed By: #### R PRQ #### [facility] [address] [place] [address] Dr. Kamaljit Reich US PREG BIOPHY W NON STRESSo n 05-12-2021 US PREG BIOPHY W NON STRESS Ultrasound biophysical profile CLINICAL: Evaluate well-being. TECHNIQUE: Dedicated ultrasound imaging of the fetus was performed to include the transmission system operator's evaluation of biophysical profile. FINDINGS: Comparison: Ultrasound [...] NICOLE CARDOSO Date: 2021-05-12 13:13 Normal [facility] US PREG GROWTHon 05-12-2021 US PREG GROWTH [...] EFW: 3 lbs. 3 oz., 23% FL/AC: 0.687616 FL/BPD: 0.731011 HC/AC: 1.816610 GESTATIONAL AGE: Age by EDC: 30 weeks 2 days QUINN by EDC: 07/19/2021 Age by US: 30 weeks 1 day QUINN by US: 07/20/2021 IMPRESSION: heart rate between 101-127 Normal interval growth Electronically authenticated by: LEANDRA BUSTOS Date: 2021-05-12 11:36 Normal [facility] TYPE AND SCREENon 05-05-2021 TYPE AND SCREEN Negative Normal [facility] Comment on above: Performed By: #### T NS #### [facility] [address] [place] [address] Dr. Kamaljit Reich CHLAMYDIA/GONOCOCCUS NELY ( AB/URINE/PAPon 05-01-2021 Chlamydia trachomatis, NELY Negative Normal Negative [facility] Comment on above: Performed By: #### C T/NGNA #### [facility] [address] [address] [address] Kamaljit Reich Neisseria gonorrhoeae, NELY Negative Normal Negative [facility] Comment on above: Performed By: #### C T/NGNA #### [facility] [address] [address] [address] Kamaljit Reich VAGINITIS/VAGINOSIS DNA PROB Eliezer 04-30-2021 Fernanda species Negative Normal Negative [facility] Comment on above: Performed By: #### A 1C #### [facility] [address] [place] [address] Dr. Kamaljit Reich Gardnerella vaginalis Negative Normal Negative [facility] Comment on above: Performed By: #### A 1C #### [facility] [address] [place] [address] Dr. Kamaljit Reich Trichomonas vaginalis Negative Normal Negative [facility] Comment on above: Performed By: #### A 1C #### [facility] [address] [place] [address] Dr. Kamaljit Reich US PREG PLACENTAon US [...] by: LEANDRA BUSTOS Date: 2021-04-01 16:07 Normal [facility] PAP ACOG PANEL 2: 21 to 29on 03-10-2021 . . Normal [facility] Comment on above: Performed By: #### C T/NGNA #### [facility] [address] [place] [address] Dr. Kamaljit Reich Age Gdln ACOG Testing - Normal [facility] Comment on above: Performed By: #### C T/NGNA #### [facility] [address] [place] [address] Dr. Kamaljit Reich DIAGNOSIS: Comment [facility] Comment on above: Result Comment: NEGA TIVE FOR INTRAEPITHELIAL LESION OR MALIGNANCY. THIS SPECIMEN WAS RESCREENED PART OF OUR BIOINFORMATICS ASSISTANT PROGRAM. Performed By: #### C T/NGNA #### [facility] [address] [place] [address] Dr. Kamaljit Reich Methodology: Comment Normal [facility] Comment on above: Result Comment: This liquid based ThinPrep(R) pap test was screened with the use of an image guided system. Performed By: #### C T/NGNA #### [facility] [address] [place] [address] Dr. Kamaljit Reich Note: Comment Normal [facility] Comment on above: Result Comment: The Pap smear is a screening test designed to aid in the detection of premalignant and malignant conditions of the uterine cervix. It is not a diagnostic procedure and should not be used as the sole means of detecting cervical cancer. Both false-positive and false-negative reports do occur. . Performed By: #### C T/NGNA #### [facility] [address] [place] [address] Dr. Kamaljit Reich Performed by: Comment Normal [facility] Comment on above: Result Comment: Christin Abdul, Associate Technician (ASCP) Performed By: #### C T/NGNA #### [facility] - [facility] [address] [place] [address] Dr. Kamaljit Reich QC reviewed by: Comment Normal [facility] Comment on above: Result Comment: Radha Alejandre, Supervisory Associate Technician (ASCP) Performed By: #### C T/NGNA #### [facility] [address] [place] [address] Dr. Kamaljit Reich Reflex Criteria: Comment Normal [facility] Comment on above: Result Comment: The HPV DNA reflex criteria were not met with this specimen result therefore, no HPV testing was performed. . Performed By: #### C T/NGNA #### [facility] [address] [place] [address] Dr. Kamaljit Reich Specimen adequacy: Comment Normal [facility] Comment on above: Result Comment: Sati sfactory for evaluation. Endocervical and/or squamous metaplastic cells (endocervical component) are present. Performed By: #### C T/NGNA #### [facility] [address] [place] [address] Dr. Kamaljit Reich CHLAMYDIA/GONOCOCCUS NELY (SW AB/URINE/PAPon 03-07-2021 Chlamydia trachomatis, NELY Negative Normal Negative [facility] Comment on above: Performed By: #### C T/NGNA #### [facility] [address] [place] [address] Dr. Kamaljit Reich Neisseria gonorrhoeae, NELY Negative Normal Negative [facility] Comment on above: Performed By: #### C T/NGNA #### [facility] [address] [place] [address] Dr. Kamaljit Reich VAGINITIS/VAGINOSIS DNA PROB Eliezer 03-06-2021 Fernanda species Negative Normal Negative [facility] Comment on above: Performed By: #### V AGINT #### [facility] [address] [place] [address] Dr. Kamaljit Reich Gardnerella vaginalis Negative Normal Negative [facility] Comment on above: Performed By: #### V AGINT #### [facility] [address] [place] [address] Dr. Kamaljit Reich Trichomonas vaginalis Negative Normal Negative [facility] Comment on above: Performed By: #### V AGINT #### [facility] [address] [place] [address] Dr. Kamaljit Reich US PREG ANATOMY SINGLEon [...] by ultrasound, 13th percentile by expected) FL/AC: 0.032521 FL/BPD: 0.697344 HC/AC: 1.253742 GESTATIONAL AGE: Age by EDC: 20 weeks, 3 days QUINN by EDC: 07/19/2021 Age by current US: 19 weeks, 2 days QUINN by current US: 07/27/2021 IMPRESSION: 1. Single live intrauterine with growth detailed above. 2. Anterior, low-lying placenta. Electronically authenticated by: JASE JONES Date: 2021-03-04 17:10 Normal [facility] HEP B SURFACE ANTIGEN SCREEN on 12-28-2020 HBsAg Screen Negative Normal Negative [facility] Comment on above: Performed By: #### C T/NGNA #### [facility] [address] [address] [address] Kamaljit Reich HEPATITIS C VIRUS AB W/ REFL EX QUANTon 12-28-2020 HCV AB <0.1 Normal 0.0-0.9 [facility] Comment on above: Performed By: #### A 1C #### [facility] [address] [address] [address] Kamaljit Reich Interpretation: Comment Normal [facility] Comment on above: Result Comment: Nega tive Not infected with HCV, unless recent infection is suspected or other evidence exists to indicate HCV infection. Performed By: #### A 1C #### [facility] [address] [address] [address] Kamaljit Reich HIV 1 AND 2 WITH REFLEXon HIV Screen 4th Generation wRfx Non-Reactive Normal Non Reactive [facility] Comment on above: Performed By: #### A 1C #### [facility] [address] [place] [address] Dr. Kamaljit Reich RPR QUANTon 12-28-2020 Rapid Plasma Reagin, Quant Non-Reactive Normal NonRea<1:1 [facility] Comment on above: Performed By: #### R PRQ #### [facility] [address] [place] [address] Dr. Kamaljit Reich RUBELLA AB IGGon 12-28-2020 Rubella Antibodies, IgG 1.39 index Normal Immune >0.99 [facility] Comment on above: Result Comment: Non- immune <0.90 Equivocal 0.90 - 0.99 Immune >0.99 Performed By: #### A 1C #### [facility] [address] [place] [address] Dr. Kamaljit Reich CBC AUTO DIFFon 12-27-2020 BASO # 0.0 103/ul Normal 0.0-0.1 [facility] Comment on above: Performed By: #### C T/NGNA #### [facility] [address] [place] [address] Dr. Kamaljit Reich Basophils/100 WBC (Bld) 0.3 % Normal 0.2-2.0 [facility] Comment on above: Performed By: #### C T/NGNA #### [facility] [address] [place] [address] Dr. Kamaljit Reich EO # 0.1 103/ul Normal 0.0-0.7 [facility] Comment on above: Performed By: #### C T/NGNA #### [facility] [address] [place] [address] Dr. Kamaljit Reich Eosinophils/100 WBC (Bld) 1.0 % Normal 0.9-7.0 [facility] Comment on above: Performed By: #### C T/NGNA #### [facility] [address] [place] [address] Dr. Kamaljit Reich Erythrocyte distribution width (RBC) [Ratio] 12.2 % Normal 11.0-15.0 [facility] Comment on above: Performed By: #### C T/NGNA #### [facility] [address] [address] [address] Kamaljit Reich Hematocrit (Bld) [Volume fraction] 37.7 % Normal 36.0-48.0 [facility] Comment on above: Performed By: #### C T/NGNA #### [facility] [address] [place] [address] Dr. Kamaljit Reich Hemoglobin (Bld) [Mass/Vol] 12.5 g/dL Normal 12.0-16.0 [facility] Comment on above: Performed By: #### C T/NGNA #### [facility] [address] [place] [address] Dr. Kamaljit Reich IG # 0.02 10e3/ul Normal 0.00-0.03 [facility] Comment on above: Performed By: #### C T/NGNA #### [facility] [address] [place] [address] Dr. Kamaljit Reich IG % 0.3 % Normal 0.0-0.5 [facility] Comment on above: Performed By: #### C T/NGNA #### [facility] [address] [place] [address] Dr. Kamaljit Reich LYMPH # 1.3 103/ul Normal 1.2-3.8 [facility] Comment on above: Performed By: #### C T/NGNA #### [facility] [address] [place] [address] Dr. Kamaljit Reich Lymphocytes/100 WBC (Bld) 18.6 % Critically low 20.5-60.0 [facility] Comment on above: Performed By: #### C T/NGNA #### [facility] [address] [place] [address] Dr. Kamaljit Reich MANUAL DIFF REQ NO Normal [facility] Comment on above: Performed By: #### C T/NGNA #### [facility] [address] [place] [address] Dr. Kamaljit Reich MCH (RBC) [Entitic mass] 28.8 pg Normal 26.7-34.0 [facility] Comment on above: Performed By: #### C T/NGNA #### [facility] [address] [place] [address] Dr. Kamaljit Reich MCHC (RBC) [Mass/Vol] 33.2 g/dL Normal 29.9-35.2 [facility] Comment on above: Performed By: #### C T/NGNA #### [facility] [address] [place] [address] Dr. Kamaljit Reich MCV (RBC) [Entitic vol] 86.9 fL Normal 81.0-99.0 [facility] Comment on above: Performed By: #### C T/NGNA #### [facility] [address] [place] [address] Dr. Kamaljit Reich MONO # 0.3 103/ul Normal 0.3-0.8 [facility] Comment on above: Performed By: #### C T/NGNA #### [facility] [address] [place] [address] Dr. Kamaljit Reich Monocytes/100 WBC (Bld) 5.1 % Normal 1.7-12.0 [facility] Comment on above: Performed By: #### C T/NGNA #### [facility] [address] [place] [address] Dr. Kamaljit Reich NEUT # 5.0 103/ul Normal 1.4-6.5 [facility] Comment on above: Performed By: #### C T/NGNA #### [facility] [address] [place] [address] Dr. Kamaljit Reich Neutrophils/100 WBC (Bld) 74.7 % Normal 43.0-75.0 [facility] Comment on above: Performed By: #### C T/NGNA #### [facility] [address] [place] [address] Dr. Kamaljit Reich Platelet mean volume (Bld) [Entitic vol] 10.2 fL Normal 9.5-13.5 [facility] Comment on above: Performed By: #### C T/NGNA #### [facility] [address] [place] [address] Dr. Kamaljit Reich PLT 204 103/ul Normal 150-450 [facility] Comment on above: Performed By: #### C T/NGNA #### [facility] [address] [place] [address] Dr. Kamaljit Reich RBC 4.34 106/ul Normal 4.20-5.40 [facility] Comment on above: Performed By: #### C T/NGNA #### [facility] [address] [place] [address] Dr. Kamaljit Reich WBC 6.7 103/ul Normal 4.0-11.0 [facility] Comment on above: Performed By: #### C T/NGNA #### [facility] [address] [place] [address] Dr. Kamaljit Reich CULTURE URINEon 12-27-2020 CULTURE URINE Culture Observations : LIGHT GROWTH OF MIXED GENITAL MADY. NO POTENTIAL PATHOGENS SEEN. Normal [facility] Comment on above: Performed By: #### U RCX #### [facility] [address] [place] [address] Dr. Kamaljit Reich DIRECT COOMBSon 12-27-2020 DIRECT MARY Negative Normal [facility] Comment on above: Performed By: #### D IRCMB #### [facility] [address] [place] [address] Dr. Kamaljit Reich GLYCOHEMOGLOBIN A1Con 2020 ADA RECOMMENDATION ADA THERAPEUTIC TARGET 6.0 - 7.0 ACTION SUGGESTED > 7.0 Normal [facility] Comment on above: Performed By: #### A 1C #### [facility] [address] [place] [address] Dr. Kamaljit Reich Glucose [Mass/Vol] 100 mg/dL Normal [facility] Comment on above: Performed By: #### A 1C #### [facility] [address] [place] [address] Dr. Kamaljit Reich HbA1c (Bld) [Mass fraction] 5.1 % Normal <=6.0 [facility] Comment on above: Performed By: #### A 1C #### [facility] [address] [place] [address] Dr. Kamaljit Reich PARDEEP BOX TEST PT SEND OUTo n 12-27-2020 SENT TO REF LAB 12/27/2020 Normal [facility] Comment on above: Performed By: #### A 1C #### [facility] [address] [address] [address] Kamaljit Reich TYPE AND SCREENon 12-27-2020 TYPE AND SCREEN Negative Normal [facility] Comment on above: Performed By: #### T NS #### [facility] [address] [address] [address] 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 Approach DR ZHOU WILLIAM Payers Date Payer Category Payer Medicaid [id number] 1994 [facility] [id number] 2.16.84 0.1.637158.3.579.2.593 1994 Unknown [id number] 2.16.84 0.1.188817.3.579.2.593 1994 Unknown [id number] 2.16.84 0.1.449677.3.579.2.593 1994 Unknown [id number] 2.16.84 0.1.863933.3.579.2.593 1994 Unknown [id number] 2.16.84 0.1.849383.3.579.2.593 1994 Unknown [id number] 2.16.84 0.1.811802.3.579.2.593 1994 Unknown [id number] 2.16.84 0.1.261612.3.579.2.593 1994 Unknown [id number] 2.16.84 0.1.885017.3.579.2.593 1994 Unknown [id number] 2.16.84 0.1.071149.3.579.2.593 1994 Unknown [id number] 2.16.84 0.1.679222.3.579.2.593 1994 Unknown [id number] 2.16.84 0.1.594039.3.579.2.593 1994 Unknown [id number] 2.16.84 0.1.333171.3.579.2.593 1994 Unknown [id number] 2.16.84 0.1.437800.3.579.2.593 1994 Unknown [id number] 2.16.84 0.1.162918.3.579.2.593 1994 Unknown [id number] 2.16.84 0.1.853404.3.579.2.593 1994 Unknown [id number] 2.16.84 0.1.693942.3.579.2.593 1994 Unknown [id number] 2.16.84 0.1.617515.3.579.2.593 1994 Unknown [id number] 2.16.84 0.1.176201.3.579.2.593 1994 Unknown [id number] 2.16.84 0.1.875621.3.579.2.593 1994 Unknown [id number] 2.16.84 0.1.361663.3.579.2.593 1994 Unknown [id number] 2.16.84 0.1.322300.3.579.2.593 1994 Unknown [id number] 2.16.84 0.1.288691.3.579.2.593 1994 Unknown [id number] 2.16.84 0.1.146693.3.579.2.593 1994 Unknown [id number] 2.16.840 .1.602207.3.579.2.1259 1959 Self-pay [id number] 1959 Unknown [id number] Unknown [id number] 2.16.84 0.1.335577.3.579.2.593 Summary Purpose Family History No Family History Records FoundNo Family History Records Found Advance Directives No Advanced Directives Records FoundNo Advanced Directives Records Found Additional Source Comments INFORMATION SOURCE (unrecogn ized section and content) DATE CREATED AUTHOR 07/15/2021 [facility] DATE CREATED AUTHOR AUTHOR'S ORGANIZ ATFORMERLY [facility] 03/04/2023 [facility] FOR RECORDS PERTAINING TO PATIENTS WHO [...] BE BASED ON THE PRIMARY CLINICAL RECORDS. [facility]. provides no warranty or guarantee of the accuracy or completeness of information in this document.
--- OUTSIDE RECORDS SUMMARY | 2023-04-12 18:58 | XMS_ITS | CCD ---
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 Kamaljit Spears THC GC/MS Conf >750 Normal Cutoff=10 [facility] Comment on above: Performed By: #### C T/NGNA #### [facility] [address] [place] [address] Dr. Kamaljit Reich ANTIBODY ID PANELon 07-07-19 ANTIBODY ID PANEL Antibody ID Anti-D Normal [facility] Comment on above: Performed By: #### A BID #### [facility] [address] [place] [address] Dr. Kamaljit Reich CBC AUTO DIFFon 07-02-2021 BASO # 0.0 103/ul Normal 0.0-0.1 [facility] Comment on above: Performed By: #### A 1C #### [facility] [address] [place] [address] Dr. Kamaljit Reich Basophils/100 WBC (Bld) 0.3 % Normal 0.2-2.0 [facility] Comment on above: Performed By: #### A 1C #### [facility] [address] [place] [address] Dr. Kamaljit Reich EO # 0.1 103/ul Normal 0.0-0.7 [facility] Comment on above: Performed By: #### A 1C #### [facility] [address] [place] [address] Dr. Kamaljit Reich Eosinophils/100 WBC (Bld) 0.5 % Critically low 0.9-7.0 [facility] Comment on above: Performed By: #### A 1C #### [facility] [address] [place] [address] Dr. Kamaljit Reich Erythrocyte distribution width (RBC) [Ratio] 12.2 % Normal 11.0-15.0 [facility] Comment on above: Performed By: #### A 1C #### [facility] [address] [place] [address] Dr. Kamaljit Reich Hematocrit (Bld) [Volume fraction] 38.6 % Normal 36.0-48.0 [facility] Comment on above: Performed By: #### A 1C #### [facility] [address] [place] [address] Dr. Kamaljit Reich Hemoglobin (Bld) [Mass/Vol] 12.5 g/dL Normal 12.0-16.0 [facility] Comment on above: Performed By: #### A 1C #### [facility] [address] [address] [address] Kamaljit Reich IG # 0.06 10e3/ul Critically high 0.00-0.03 [facility] Comment on above: Performed By: #### A 1C #### [facility] [address] [address] [address] Kamaljit Reich IG % 0.5 % Normal 0.0-0.5 [facility] Comment on above: Performed By: #### A 1C #### [facility] [address] [place] [address] Dr. Kamaljit Reich LYMPH # 1.2 103/ul Normal 1.2-3.8 [facility] Comment on above: Performed By: #### A 1C #### [facility] [address] [place] [address] Dr. Kamaljit Reich Lymphocytes/100 WBC (Bld) 9.8 % Critically low 20.5-60.0 [facility] Comment on above: Performed By: #### A 1C #### [facility] [address] [place] [address] Dr. Kamaljit Reich MANUAL DIFF REQ NO Normal [facility] Comment on above: Performed By: #### A 1C #### [facility] [address] [place] [address] Dr. Kamaljit Reich MCH (RBC) [Entitic mass] 28.2 pg Normal 26.7-34.0 [facility] Comment on above: Performed By: #### A 1C #### [facility] [address] [place] [address] Dr. Kamaljit Reich MCHC (RBC) [Mass/Vol] 32.4 g/dL Normal 29.9-35.2 [facility] Comment on above: Performed By: #### A 1C #### [facility] [address] [place] [address] Dr. Kamaljit Reich MCV (RBC) [Entitic vol] 87.1 fL Normal 81.0-99.0 [facility] Comment on above: Performed By: #### A 1C #### [facility] [address] [address] [address] Kamaljit Reich MONO # 0.8 103/ul Normal 0.3-0.8 [facility] Comment on above: Performed By: #### A 1C #### [facility] [address] [address] [address] Kamaljit Reich Monocytes/100 WBC (Bld) 6.1 % Normal 1.7-12.0 [facility] Comment on above: Performed By: #### A 1C #### [facility] [address] [place] [address] Dr. Kamaljit Reich NEUT # 10.2 103/ul Critically high 1.4-6.5 [facility] Comment on above: Performed By: #### A 1C #### [facility] [address] [place] [address] Dr. Kamaljit Reich Neutrophils/100 WBC (Bld) 82.8 % Critically high 43.0-75.0 [facility] Comment on above: Performed By: #### A 1C #### [facility] [address] [place] [address] Dr. Kamaljit Reich Platelet mean volume (Bld) [Entitic vol] 10.5 fL Normal 9.5-13.5 [facility] Comment on above: Performed By: #### A 1C #### [facility] [address] [place] [address] Dr. Kamaljit Reich PLT 214 103/ul Normal 150-450 [facility] Comment on above: Performed By: #### A 1C #### [facility] [address] [place] [address] Dr. Kamaljit Reich RBC 4.43 106/ul Normal 4.20-5.40 [facility] Comment on above: Performed By: #### A 1C #### [facility] [address] [place] [address] Dr. Kamaljit Reich WBC 12.3 103/ul Critically high 4.0-11.0 [facility] Comment on above: Performed By: #### A 1C #### [facility] [address] [place] [address] Dr. Kamaljit Reich CBC AUTO DIFFon 07-01-2021 BASO # 0.0 103/ul Normal 0.0-0.1 [facility] Comment on above: Performed By: #### A 1C #### [facility] [address] [place] [address] Dr. Kamaljit Reich Basophils/100 WBC (Bld) 0.2 % Normal 0.2-2.0 [facility] Comment on above: Performed By: #### A 1C #### [facility] [address] [place] [address] Dr. Kamaljit Reich EO # 0.0 103/ul Normal 0.0-0.7 [facility] Comment on above: Performed By: #### A 1C #### [facility] [address] [place] [address] Dr. Kamaljit Reich Eosinophils/100 WBC (Bld) 0.5 % Critically low 0.9-7.0 [facility] Comment on above: Performed By: #### A 1C #### [facility] [address] [place] [address] Dr. Kamaljit Reich Erythrocyte distribution width (RBC) [Ratio] 12.4 % Normal 11.0-15.0 [facility] Comment on above: Performed By: #### A 1C #### [facility] [address] [place] [address] Dr. Kamaljit Reich Hematocrit (Bld) [Volume fraction] 38.8 % Normal 36.0-48.0 [facility] Comment on above: Performed By: #### A 1C #### [facility] [address] [place] [address] Dr. Kamaljit Reich Hemoglobin (Bld) [Mass/Vol] 12.8 g/dL Normal 12.0-16.0 [facility] Comment on above: Performed By: #### A 1C #### [facility] [address] [place] [address] Dr. Kamaljit Reich IG # 0.02 10e3/ul Normal 0.00-0.03 [facility] Comment on above: Performed By: #### A 1C #### [facility] [address] [place] [address] Dr. Kamaljit Reich IG % 0.2 % Normal 0.0-0.5 [facility] Comment on above: Performed By: #### A 1C #### [facility] [address] [place] [address] Dr. Kamaljit Reich LYMPH # 1.4 103/ul Normal 1.2-3.8 [facility] Comment on above: Performed By: #### A 1C #### [facility] [address] [place] [address] Dr. Kamaljit Reich Lymphocytes/100 WBC (Bld) 15.6 % Critically low 20.5-60.0 [facility] Comment on above: Performed By: #### A 1C #### [facility] [address] [place] [address] Dr. Kamaljit Reich MANUAL DIFF REQ NO Normal [facility] Comment on above: Performed By: #### A 1C #### [facility] [address] [place] [address] Dr. Kamaljit Reich MCH (RBC) [Entitic mass] 27.7 pg Normal 26.7-34.0 [facility] Comment on above: Performed By: #### A 1C #### [facility] [address] [place] [address] Dr. Kamaljit Reich MCHC (RBC) [Mass/Vol] 33.0 g/dL Normal 29.9-35.2 [facility] Comment on above: Performed By: #### A 1C #### [facility] [address] [place] [address] Dr. Kamaljit Reich MCV (RBC) [Entitic vol] 84.0 fL Normal 81.0-99.0 [facility] Comment on above: Performed By: #### A 1C #### [facility] [address] [place] [address] Dr. Kamaljit Reich MONO # 0.4 103/ul Normal 0.3-0.8 [facility] Comment on above: Performed By: #### A 1C #### [facility] [address] [place] [address] Dr. Kamaljit Reich Monocytes/100 WBC (Bld) 5.0 % Normal 1.7-12.0 [facility] Comment on above: Performed By: #### A 1C #### [facility] [address] [place] [address] Dr. Kamaljit Reich NEUT # 7.0 103/ul Critically high 1.4-6.5 [facility] Comment on above: Performed By: #### A 1C #### [facility] [address] [place] [address] Dr. Kamaljit Reich Neutrophils/100 WBC (Bld) 78.5 % Critically high 43.0-75.0 [facility] Comment on above: Performed By: #### A 1C #### [facility] [address] [place] [address] Dr. Kamaljit Reich Platelet mean volume (Bld) [Entitic vol] 10.7 fL Normal 9.5-13.5 [facility] Comment on above: Performed By: #### A 1C #### [facility] [address] [place] [address] Dr. Kamaljit Reich PLT 228 103/ul Normal 150-450 [facility] Comment on above: Performed By: #### A 1C #### [facility] [address] [place] [address] Dr. Kamaljit Reich RBC 4.62 106/ul Normal 4.20-5.40 [facility] Comment on above: Performed By: #### A 1C #### [facility] [address] [place] [address] Dr. Kamaljit Reich WBC 8.9 103/ul Normal 4.0-11.0 [facility] Comment on above: Performed By: #### A 1C #### [facility] [address] [place] [address] Dr. Kamaljit Reich Covid-19 PCR ([facility])on 06-04 SARS-CoV-2 (COVID-19) RNA NELY+probe Ql (Unsp spec) Not detected Normal NOT DETECTED [facility] Comment on above: Result Comment: [...] for this test is supported by the [employer] Worker of Health and Human Service's declaration that [...] By: #### R PRQ #### [facility] [address] [place] [address] Dr. Kamaljit Reich DRUG SCREEN RAPID (URINE)on 07-01-2021 AMP Negative Normal NEGATIVE [facility] Comment on above: Performed By: #### A 1C #### [facility] [address] [place] [address] Dr. Kamaljit Reich BAR Negative Normal NEGATIVE [facility] Comment on above: Performed By: #### A 1C #### [facility] [address] [place] [address] Dr. Kamaljit Reich BUP Positive Abnormal NEGATIVE [facility] Comment on above: Performed By: #### A 1C #### [facility] [address] [place] [address] Dr. Kamaljit Reich BZO Negative Normal NEGATIVE [facility] Comment on above: Performed By: #### A 1C #### [facility] [address] [place] [address] Dr. Kamaljit Reich NOEMI Negative Normal NEGATIVE [facility] Comment on above: Performed By: #### A 1C #### [facility] [address] [place] [address] Dr. Kamaljit Reich CUT-OFFS SEE BELOW Normal [facility] Comment on above: Result Comment: [...] By: #### A 1C #### [facility] [address] [place] [address] Dr. Kamaljit Reich DRUG CUT HEADER DRUG CLASS TEST SYSTEM CUT-OFF CONCENTRATIONS ARE FOLLOWS: Normal [facility] Comment on above: Performed By: #### A 1C #### [facility] [address] [place] [address] Dr. Kamaljit Reich mAMP Negative Normal NEGATIVE [facility] Comment on above: Performed By: #### A 1C #### [facility] [address] [place] [address] Dr. Kamaljit Reich MTD Negative Normal NEGATIVE [facility] Comment on above: Performed By: #### A 1C #### [facility] [address] [place] [address] Dr. Kamaljit Reich OPI Negative Normal NEGATIVE [facility] Comment on above: Performed By: #### A 1C #### [facility] [address] [place] [address] Dr. Kamaljit Reich OXY Negative Normal NEGATIVE [facility] Comment on above: Performed By: #### A 1C #### [facility] [address] [place] [address] Dr. Kamaljit Reich PCP Negative Normal NEGATIVE [facility] Comment on above: Performed By: #### A 1C #### [facility] [address] [place] [address] Dr. Kamaljit Reich PPX Negative Normal NEGATIVE [facility] Comment on above: Performed By: #### A 1C #### [facility] [address] [place] [address] Dr. Kamaljit Reich TCA Negative Normal NEGATIVE [facility] Comment on above: Performed By: #### A 1C #### [facility] [address] [address] [address] Kamaljit Reich THC Positive Abnormal NEGATIVE [facility] Comment on above: Performed By: #### A 1C #### [facility] [address] [address] [address] Kamaljit Reich TYPE AND SCREENon 07-01-2021 TYPE AND SCREEN Negative Normal [facility] Comment on above: Performed By: #### T NS #### [facility] [address] [address] [address] Kamaljit Reich GROUP B STREP CULTUREon [...] S F Tetracycline >=16 R F Normal [facility] Comment on above: Performed By: #### R PRQ #### [facility] [address] [place] [address] Dr. Kamaljit Reich US PREG AMNIOTIC FLUID [...] by: JASE JONES Date: 2021-06-25 11:28 Normal [facility] US PREG AMNIOTIC FLUID VOLUM Eliezer 06-11-2021 [...] hydroceles of unknown etiology Electronically authenticated by: LEANDAR BUSTOS Date: 2021-06-11 11:26 Normal [facility] GLYCOHEMOGLOBIN A1Con 2021 ADA RECOMMENDATION ADA THERAPEUTIC TARGET 6.0 - 7.0 ACTION SUGGESTED > 7.0 Normal [facility] Comment on above: Performed By: #### A 1C #### [facility] [address] [place] [address] Dr. Kamaljit Reich Glucose [Mass/Vol] 103 mg/dL Normal [facility] Comment on above: Performed By: #### A 1C #### [facility] [address] [place] [address] Dr. Kamaljit Reich HbA1c (Bld) [Mass fraction] 5.2 % Normal <=6.0 [facility] Comment on above: Performed By: #### A 1C #### [facility] [address] [place] [address] Dr. Kamaljit Reich HEMOGRAM AND PLATELon 2021 Hematocrit (Bld) [Volume fraction] 33.7 % Critically low 36.0-48.0 [facility] Comment on above: Performed By: #### A 1C #### [facility] [address] [place] [address] Dr. Kamaljit Reich Hemoglobin (Bld) [Mass/Vol] 11.0 g/dL Critically low 12.0-16.0 [facility] Comment on above: Performed By: #### A 1C #### [facility] [address] [place] [address] Dr. Kamaljit Reich MCH (RBC) [Entitic mass] 27.7 pg Normal 26.7-34.0 [facility] Comment on above: Performed By: #### A 1C #### [facility] [address] [place] [address] Dr. Kamaljit Reich MCHC (RBC) [Mass/Vol] 32.6 g/dL Normal 29.9-35.2 [facility] Comment on above: Performed By: #### A 1C #### [facility] [address] [place] [address] Dr. Kamaljit Reich MCV (RBC) [Entitic vol] 84.9 fL Normal 81.0-99.0 [facility] Comment on above: Performed By: #### A 1C #### [facility] [address] [place] [address] Dr. Kamaljit Reich PLT 245 103/ul Normal 150-450 [facility] Comment on above: Performed By: #### A 1C #### [facility] [address] [place] [address] Dr. Kamaljit Reich RBC 3.97 106/ul Critically low 4.20-5.40 [facility] Comment on above: Performed By: #### A 1C #### [facility] [address] [place] [address] Dr. Kamaljit Reich WBC 8.7 103/ul Normal 4.0-11.0 [facility] Comment on above: Performed By: #### A 1C #### [facility] [address] [place] [address] Dr. Kamaljit Reich RHOGAMon 05-16-2021 RHOGAM Status Information Issued Quantity 1 Product ID Rh Immune Globulin Lot Number [id number] Issue Date/Time [id number] Normal [facility] Comment on above: Performed By: #### R PRQ #### [facility] [address] [place] [address] Dr. Kamaljit Reich US PREG BIOPHY W NON STRESSo n 05-12-2021 US PREG BIOPHY W NON STRESS Ultrasound biophysical profile CLINICAL: Evaluate well-being. TECHNIQUE: Dedicated ultrasound imaging of the fetus was performed to include the pediatric hospitalist's evaluation of biophysical profile. FINDINGS: Comparison: Ultrasound [...] NICOLE CARDOSO Date: 2021-05-12 13:13 Normal [facility] US PREG GROWTHon 05-12-2021 US [...] EFW: 3 lbs. 3 oz., 23% FL/AC: [id number] FL/BPD: [id number] HC/AC: 1.933930 GESTATIONAL AGE: Age by EDC: 30 weeks 2 days QUINN by EDC: 07/19/2021 Age by US: 30 weeks 1 day QUINN by US: 07/20/2021 IMPRESSION: heart rate between 101-127 Normal interval growth Electronically authenticated by: LEANDRA BUSTOS Date: 2021-05-12 11:36 Normal [facility] TYPE AND SCREENon 05-05-2021 TYPE AND SCREEN Negative Normal [facility] Comment on above: Performed By: #### T NS #### [facility] [address] [place] [address] Dr. Kamaljit Reich CHLAMYDIA/GONOCOCCUS NELY ( AB/URINE/PAPon 05-01-2021 Chlamydia trachomatis, NELY Negative Normal Negative [facility] Comment on above: Performed By: #### C T/NGNA #### [facility] [address] [address] [address] Kamaljit Reich Neisseria gonorrhoeae, NELY Negative Normal Negative [facility] Comment on above: Performed By: #### C T/NGNA #### [facility] [address] [address] [address] Kamaljit Reich VAGINITIS/VAGINOSIS DNA PROB Eliezer 04-30-2021 Fernanda species Negative Normal Negative [facility] Comment on above: Performed By: #### A 1C #### [facility] [address] [place] [address] Dr. Kamaljit Reich Gardnerella vaginalis Negative Normal Negative [facility] Comment on above: Performed By: #### A 1C #### [facility] [address] [place] [address] Dr. Kamaljit Reich Trichomonas vaginalis Negative Normal Negative [facility] Comment on above: Performed By: #### A 1C #### [facility] [address] [place] [address] Dr. Kamaljit Reich US PREG PLACENTAon US [...] by: LEANDRA BUSTOS Date: 2021-04-01 16:07 Normal [facility] PAP ACOG PANEL 2: 21 to 29on 03-10-2021 . . Normal [facility] Comment on above: Performed By: #### C T/NGNA #### [facility] [address] [place] [address] Dr. Kamaljit Reich Age Gdln ACOG Testing - Normal [facility] Comment on above: Performed By: #### C T/NGNA #### [facility] [address] [place] [address] Dr. Kamaljit Reich DIAGNOSIS: Comment [facility] Comment on above: Result Comment: NEGA TIVE FOR INTRAEPITHELIAL LESION OR MALIGNANCY. THIS SPECIMEN WAS RESCREENED PART OF OUR VIDEO GAME CREATOR PROGRAM. Performed By: #### C T/NGNA #### [facility] [address] [place] [address] Dr. Kamaljit Reich Methodology: Comment Normal [facility] Comment on above: Result Comment: This liquid based ThinPrep(R) pap test was screened with the use of an image guided system. Performed By: #### C T/NGNA #### [facility] [address] [place] [address] Dr. Kamaljit Reich Note: Comment Normal [facility] Comment on above: Result Comment: The Pap smear is a screening test designed to aid in the detection of premalignant and malignant conditions of the uterine cervix. It is not a diagnostic procedure and should not be used as the sole means of detecting cervical cancer. Both false-positive and false-negative reports do occur. . Performed By: #### C T/NGNA #### [facility] [address] [place] [address] Dr. Kamaljit Reich Performed by: Comment Normal [facility] Comment on above: Result Comment: Christin Abdul, Monorail Charger Operator (ASCP) Performed By: #### C T/NGNA #### [facility] [address] [place] [address] Dr. Kamaljit Reich QC reviewed by: Comment Normal [facility] Comment on above: Result Comment: Radha Alejandre, Supervisory Monorail Charger Operator (ASCP) Performed By: #### C T/NGNA #### [facility] [address] [place] [address] Dr. Kamaljit Reich Reflex Criteria: Comment Normal [facility] Comment on above: Result Comment: The HPV DNA reflex criteria were not met with this specimen result therefore, no HPV testing was performed. . Performed By: #### C T/NGNA #### [facility] [address] [place] [address] Dr. Kamaljit Reich Specimen adequacy: Comment Normal [facility] Comment on above: Result Comment: Sati sfactory for evaluation. Endocervical and/or squamous metaplastic cells (endocervical component) are present. Performed By: #### C T/NGNA #### [facility] [address] [place] [address] Dr. Kamaljit Reich CHLAMYDIA/GONOCOCCUS NELY (SW AB/URINE/PAPon 03-07-2021 Chlamydia trachomatis, NELY Negative Normal Negative [facility] Comment on above: Performed By: #### C T/NGNA #### [facility] [address] [place] [address] Dr. Kamaljit Reich Neisseria gonorrhoeae, NELY Negative Normal Negative [facility] Comment on above: Performed By: #### C T/NGNA #### [facility] [address] [place] [address] Dr. Kamaljit Reich VAGINITIS/VAGINOSIS DNA PROB Eliezer 03-06-2021 Fernanda species Negative Normal Negative [facility] Comment on above: Performed By: #### V AGINT #### [facility] [address] [place] [address] Dr. Kamaljit Reich Gardnerella vaginalis Negative Normal Negative [facility] Comment on above: Performed By: #### V AGINT #### [facility] [address] [place] [address] Dr. Kamaljit Reich Trichomonas vaginalis Negative Normal Negative [facility] Comment on above: Performed By: #### V AGINT #### [facility] [address] [place] [address] Dr. Kamaljit Reich US PREG ANATOMY SINGLEon [...] by ultrasound, 13th percentile by expected) FL/AC: 0.588627 FL/BPD: 0.719302 HC/AC: 1.579342 GESTATIONAL AGE: Age by EDC: 20 weeks, 3 days QUINN by EDC: 07/19/2021 Age by current US: 19 weeks, 2 days QUINN by current US: 07/27/2021 IMPRESSION: 1. Single live intrauterine with growth detailed above. 2. Anterior, low-lying placenta. Electronically authenticated by: JASE JONES Date: 2021-03-04 17:10 Normal [facility] HEP B SURFACE ANTIGEN SCREEN on 12-28-2020 HBsAg Screen Negative Normal Negative [facility] Comment on above: Performed By: #### C T/NGNA #### [facility] [address] [address] [address] Kamaljit Reich HEPATITIS C VIRUS AB W/ REFL EX QUANTon 12-28-2020 HCV AB <0.1 Normal 0.0-0.9 [facility] Comment on above: Performed By: #### A 1C #### [facility] [address] [address] [address] Kamaljit Reich Interpretation: Comment Normal [facility] Comment on above: Result Comment: Nega tive Not infected with HCV, unless recent infection is suspected or other evidence exists to indicate HCV infection. Performed By: #### A 1C #### [facility] [address] [address] [address] Kamaljit Reich HIV 1 AND 2 WITH REFLEXon HIV Screen 4th Generation wRfx Non-Reactive Normal Non Reactive [facility] Comment on above: Performed By: #### A 1C #### [facility] [address] [place] [address] Dr. Kamaljit Reich RPR QUANTon 12-28-2020 Rapid Plasma Reagin, Quant Non-Reactive Normal NonRea<1:1 [facility] Comment on above: Performed By: #### R PRQ #### [facility] [address] [place] [address] Dr. Kamaljit Reich RUBELLA AB IGGon 12-28-2020 Rubella Antibodies, IgG 1.39 index Normal Immune >0.99 [facility] Comment on above: Result Comment: Non- immune <0.90 Equivocal 0.90 - 0.99 Immune >0.99 Performed By: #### A 1C #### [facility] [address] [place] [address] Dr. Kamaljit Reich CBC AUTO DIFFon 12-27-2020 BASO # 0.0 103/ul Normal 0.0-0.1 [facility] Comment on above: Performed By: #### C T/NGNA #### [facility] [address] [place] [address] Dr. Kamaljit Reich Basophils/100 WBC (Bld) 0.3 % Normal 0.2-2.0 [facility] Comment on above: Performed By: #### C T/NGNA #### [facility] [address] [place] [address] Dr. Kamaljit Reich EO # 0.1 103/ul Normal 0.0-0.7 [facility] Comment on above: Performed By: #### C T/NGNA #### [facility] [address] [place] [address] Dr. Kamaljit Reich Eosinophils/100 WBC (Bld) 1.0 % Normal 0.9-7.0 [facility] Comment on above: Performed By: #### C T/NGNA #### [facility] [address] [place] [address] Dr. Kamaljit Reich Erythrocyte distribution width (RBC) [Ratio] 12.2 % Normal 11.0-15.0 [facility] Comment on above: Performed By: #### C T/NGNA #### [facility] [address] [address] [address] Kamaljit Reich Hematocrit (Bld) [Volume fraction] 37.7 % Normal 36.0-48.0 [facility] Comment on above: Performed By: #### C T/NGNA #### [facility] [address] [place] [address] Dr. Kamaljit Reich Hemoglobin (Bld) [Mass/Vol] 12.5 g/dL Normal 12.0-16.0 [facility] Comment on above: Performed By: #### C T/NGNA #### [facility] [address] [place] [address] Dr. Kamaljit Reich IG # 0.02 10e3/ul Normal 0.00-0.03 [facility] Comment on above: Performed By: #### C T/NGNA #### [facility] [address] [place] [address] Dr. Kamaljit Reich IG % 0.3 % Normal 0.0-0.5 [facility] Comment on above: Performed By: #### C T/NGNA #### [facility] [address] [place] [address] Dr. Kamaljit Reich LYMPH # 1.3 103/ul Normal 1.2-3.8 [facility] Comment on above: Performed By: #### C T/NGNA #### [facility] [address] [place] [address] Dr. Kamaljit Reich Lymphocytes/100 WBC (Bld) 18.6 % Critically low 20.5-60.0 [facility] Comment on above: Performed By: #### C T/NGNA #### [facility] [address] [place] [address] Dr. Kamaljit Reich MANUAL DIFF REQ NO Normal [facility] Comment on above: Performed By: #### C T/NGNA #### [facility] [address] [place] [address] Dr. Kamaljit Reich MCH (RBC) [Entitic mass] 28.8 pg Normal 26.7-34.0 [facility] Comment on above: Performed By: #### C T/NGNA #### [facility] [address] [place] [address] Dr. Kamaljit Reich MCHC (RBC) [Mass/Vol] 33.2 g/dL Normal 29.9-35.2 [facility] Comment on above: Performed By: #### C T/NGNA #### [facility] [address] [place] [address] Dr. Kamaljit Reich MCV (RBC) [Entitic vol] 86.9 fL Normal 81.0-99.0 [facility] Comment on above: Performed By: #### C T/NGNA #### [facility] [address] [place] [address] Dr. Kamaljit Reich MONO # 0.3 103/ul Normal 0.3-0.8 [facility] Comment on above: Performed By: #### C T/NGNA #### [facility] [address] [place] [address] Dr. Kamaljit Reich Monocytes/100 WBC (Bld) 5.1 % Normal 1.7-12.0 [facility] Comment on above: Performed By: #### C T/NGNA #### [facility] [address] [place] [address] Dr. Kamaljit Reich NEUT # 5.0 103/ul Normal 1.4-6.5 [facility] Comment on above: Performed By: #### C T/NGNA #### [facility] [address] [place] [address] Dr. Kamaljit Reich Neutrophils/100 WBC (Bld) 74.7 % Normal 43.0-75.0 [facility] Comment on above: Performed By: #### C T/NGNA #### [facility] [address] [place] [address] Dr. Kamaljit Reich Platelet mean volume (Bld) [Entitic vol] 10.2 fL Normal 9.5-13.5 [facility] Comment on above: Performed By: #### C T/NGNA #### [facility] [address] [place] [address] Dr. Kamaljit Reich PLT 204 103/ul Normal 150-450 [facility] Comment on above: Performed By: #### C T/NGNA #### [facility] [address] [place] [address] Dr. Kamaljit Reich RBC 4.34 106/ul Normal 4.20-5.40 [facility] Comment on above: Performed By: #### C T/NGNA #### [facility] [address] [place] [address] Dr. Kamaljit Reich WBC 6.7 103/ul Normal 4.0-11.0 [facility] Comment on above: Performed By: #### C T/NGNA #### [facility] [address] [place] [address] Dr. Kamaljit Reich CULTURE URINEon 12-27-2020 CULTURE URINE Culture Observations : LIGHT GROWTH OF MIXED GENITAL MADY. NO POTENTIAL PATHOGENS SEEN. Normal [facility] Comment on above: Performed By: #### U RCX #### [facility] [address] [place] [address] Dr. Kamaljit Reich DIRECT COOMBSon 12-27-2020 DIRECT MARY Negative Normal [facility] Comment on above: Performed By: #### D IRCMB #### [facility] [address] [place] [address] Dr. Kamaljit Reich GLYCOHEMOGLOBIN A1Con 2020 ADA RECOMMENDATION ADA THERAPEUTIC TARGET 6.0 - 7.0 ACTION SUGGESTED > 7.0 Normal [facility] Comment on above: Performed By: #### A 1C #### [facility] [address] [place] [address] Dr. Kamaljit Reich Glucose [Mass/Vol] 100 mg/dL Normal [facility] Comment on above: Performed By: #### A 1C #### [facility] [address] [place] [address] Dr. Kamaljit Recih HbA1c (Bld) [Mass fraction] 5.1 % Normal <=6.0 [facility] Comment on above: Performed By: #### A 1C #### [facility] [address] [place] [address] Dr. Kamaljit Reich PARDEEP BOX TEST PT SEND OUTo n 12-27-2020 SENT TO REF LAB 12/27/2020 Normal [facility] Comment on above: Performed By: #### A 1C #### [facility] [address] [address] [address] Kamaljit Reich TYPE AND SCREENon 12-27-2020 TYPE AND SCREEN Negative Normal [facility] Comment on above: Performed By: #### T NS #### [facility] [address] [address] [address] Kamaljit Reich US PREG TVon 12-10-2020 [...] LEANDRA BUSTOS Date: 2020-12-10 14:11 Normal [facility] Encounters Encounter Date Encounter Type [...] DR ZHOU WILLIAM Start: 07-01-2021 Repair Vulva, Auto Porter al Approach DR ZHOU WILLIAM Payers Date Payer Category Payer Medicaid [id number] 1994 Formerly [facility] [id number] 2.16.84 0.1.808253.3.579.2.593 1994 Unknown [id number] 2.16.84 0.1.271132.3.579.2.593 1994 Unknown [id number] 2.16.84 0.1.152517.3.579.2.593 1994 Unknown [id number] 2.16.84 0.1.857644.3.579.2.593 1994 Unknown [id number] 2.16.84 0.1.468932.3.579.2.593 1994 Unknown [id number] 2.16.84 0.1.256540.3.579.2.593 1994 Unknown [id number] 2.16.84 0.1.726088.3.579.2.593 1994 Unknown [id number] 2.16.84 0.1.965063.3.579.2.593 1994 Unknown [id number] 2.16.84 0.1.890643.3.579.2.593 1994 Unknown [id number] 2.16.84 0.1.772308.3.579.2.593 1994 Unknown [id number] 2.16.84 0.1.008219.3.579.2.593 1994 Unknown [id number] 2.16.84 0.1.104556.3.579.2.593 1994 Unknown [id number] 2.16.84 0.1.409964.3.579.2.593 1994 Unknown [id number] 2.16.84 0.1.595819.3.579.2.593 1994 Unknown [id number] 2.16.84 0.1.955170.3.579.2.593 1994 Unknown [id number] 2.16.84 0.1.458742.3.579.2.593 1994 Unknown [id number] 2.16.84 0.1.051496.3.579.2.593 1994 Unknown [id number] 2.16.84 0.1.106464.3.579.2.593 1994 Unknown [id number] 2.16.84 0.1.366008.3.579.2.593 1994 Unknown [id number] 2.16.84 0.1.955323.3.579.2.593 1994 Unknown [id number] 2.16.84 0.1.053959.3.579.2.593 1994 Unknown [id number] 2.16.84 0.1.673829.3.579.2.593 1994 Unknown [id number] 2.16.84 0.1.207952.3.579.2.593 1994 Unknown [id number] 2.16.840 .1.097529.3.579.2.1259 1959 Self-pay [id number] 1959 Unknown [id number] Unknown [id number] 2.16.84 0.1.944579.3.579.2.593 Summary Purpose Family History No Family History Records FoundNo Family History Records Found Advance Directives No Advanced Directives Records FoundNo Advanced Directives Records Found Additional Source Comments INFORMATION SOURCE (unrecogn ized section and content) DATE CREATED AUTHOR 07/15/2021 [facility] DATE CREATED AUTHOR [facility] FOR RECORDS PERTAINING TO PATIENTS [...] BE BASED ON THE PRIMARY CLINICAL RECORDS. [facility] [employer] [facility]. provides no warranty or guarantee of the accuracy or completeness of information in this document.
[2023-04-12] MEDS: AMPICILLIN SODIUM 2,000 MG in 0.9 % SODIUM CHLORIDE 100 ML 200 MG IV (19:08)
[2023-04-12] MEDS: 0.9 % SODIUM CHLORIDE 1,000 ML 125 ML IV (19:09)
[2023-04-12 19:13] LABS: Hematocrit 38.3 % (36.0-48.0); Hemoglobin 12.4 g/dL (12.0-16.0); Mean Corpuscular HGB Conc 32.4 g/dL (29.9-35.2); Mean Corpuscular Hemoglobin 27.2 pg (26.7-34.0); Mean Platelet Volume 11.3 fL (9.5-13.5); Platelet Count 280 10^3/uL (150-450); Red Blood Count 4.56 10^6/uL (4.20-5.40); Red Cell Distribution Width 13.5 % (11.0-15.0)
[2023-04-12 19:26] LABS: Amphetamine Screen Urine NEGATIVE (NEGATIVE); Barbiturates Screen Urine NEGATIVE (NEGATIVE); Benzodiazepines Screen Urine NEGATIVE (NEGATIVE); Buprenorphine Screen Urine POSITIVE (NEGATIVE); Cannabinoid Screen Urine POSITIVE (NEGATIVE); Cocaine Screen Urine NEGATIVE (NEGATIVE); Methadone Screen Urine NEGATIVE (NEGATIVE); Methamphetamines Screen Urine NEGATIVE (NEGATIVE); Opiate Screen Urine NEGATIVE (NEGATIVE); Oxycodone Screen Urine NEGATIVE (NEGATIVE); Phencyclidine Screen Urine NEGATIVE (NEGATIVE); Tricyclic Antidepressant Urine NEGATIVE (NEGATIVE)
[2023-04-12] MEDS: ROPIVACAINE HCL/PF 400 MG/200 ML PREMIX 6 MG EPIDURAL (20:01)
[2023-04-12] MEDS: LIDOCAINE HCL 2% PF 100 MG/5 ML VIAL INJ (20:03)
[2023-04-12] MEDS: 0.9 % SODIUM CHLORIDE 1,000 ML 1000 ML IV (20:42)
--- NOTE | 2023-04-12 21:33 | PM.OBPRCVD ---
Procedure Intrapartal events: None Induction method: none Delivery augmentation: rupture of membranes Delivery monitor: external FHT and external uterine Route of delivery: Episiotomy Description: none Laceration description: none Anesthesia type: Epidural Disposition: floor Infant Gender: male presentation: vertex Placental delivery description: Spontaneous cord description: 3 Vessels
[2023-04-12] MEDS: OXYTOCIN/0.9 % SODIUM CHLORIDE 20 UNITS/1,000 ML PLAST..BAG 125 UNIT IV (21:58)
[2023-04-12] MEDS: IBUPROFEN 600 MG TABLET PO (22:04)
[2023-04-13 04:16] VITALS: BP 124/73; PULSE 53
[2023-04-13 04:25] VITALS: BP 124/73; PULSE 53; RESP 16; TEMP 36.4; O2SAT 98
[2023-04-13 06:10] LABS: Basophils Percent Auto 0.2 % (0.2-2.0); Eosinophils Percent Auto 0.1 % (0.9-7.0); Hematocrit 31.5 % (36.0-48.0); Immature Granulocytes Abs Auto 0.04 10^3/uL (0.00-0.03); Immature Granulocytes Pct Auto 0.3 % (0.0-0.5); Lymphocytes Absolute Auto 1.6 10^3/uL (1.2-3.8); Lymphocytes Percent Auto 12.2 % (20.5-60.0); Mean Corpuscular HGB Conc 31.7 g/dL (29.9-35.2); Mean Corpuscular Hemoglobin 26.9 pg (26.7-34.0); Mean Corpuscular Volume 84.7 fL (81.0-99.0); Monocytes Absolute Auto 0.8 10^3/uL (0.3-0.8); Neutrophils Absolute Auto 10.8 10^3/uL (1.4-6.5); Neutrophils Percent Auto 81.2 % (43.0-75.0); Platelet Count 202 10^3/uL (150-450); Red Blood Count 3.72 10^6/uL (4.20-5.40); Red Cell Distribution Width 13.4 % (11.0-15.0); White Blood Count 13.3 10^3/uL (4.0-11.0)
--- NOTE | 2023-04-13 07:57 | P.OBPN_ITS ---
OB - PN: Subj Subjective Patient comments: no complaints and pain well controlled Narrative: s/p intact Exam Constitutional Vital Signs, click to edit/add: Last Vital Signs Temp 97.5 F L 04/13/23 04:25 Pulse 53 L 04/13/23 04:25 Resp 16 04/13/23 04:25 BP 124/73 04/13/23 04:25 Pulse Ox 98 04/13/23 04:25 O2 Del Method Room Air 04/13/23 04:25 Common normals: no apparent distress and oriented x3 Orientation/consciousness: Yes awake, Yes oriented to person, Yes oriented to place and Yes oriented to time HENMT Common normals: normocephalic Eye Common normals: EOMs intact bilaterally Neck & C-Spine Common normals: full ROM Lymph Lymphatic: no lymphadenopathy noted Respiratory Common normals: normal respiratory effort, no retractions and clear to auscultation bilaterally Effort & inspection: able to speak in complete sentences Cardio Common normals: regular rate, regular rhythm and no murmurs Rate: regular rate Rhythm: regular rhythm GI Common normals: Normal to inspection, nondistended, normoactive bowel sounds present and soft to palpation Common normals: no CVA tenderness Back & Pelvis Common normals: no CVA tenderness Extremity Common normals: normal to inspection Neuro Common normals: oriented x3 Sensorium/orientation: awake, alert, oriented to person, oriented to place and oriented to time Psych Common normals: mental status grossly normal, thought process normal and coop erative Results Labs Labs: Short CBC 04/12/23 04/13/23 Range/Units 19:05 05:55 WBC 12.0 H 13.3 H (4.0-11.0) 10^3/uL Hgb 12.4 10.0 L (12.0-16.0) g/dL Hct 38.3 31.5 L (36.0-48.0) % Plt Count 280 202 (150-450) 10^3/uL OB - PN: A/P Plan - Vaginal Delivery Plan: routine care Time Spent with Patient Time: Total time spent is greater than 50% in coordination of care (as documented) at patient's floor/unit and/or counseling patient: Total time spent with greater than 50% in coordination of care (as documented) at patient's floor/unit and/or counseling patient: less than 15 minutes
[2023-04-13 08:45] VITALS: RESP 18; TEMP 36.8
[2023-04-13 09:14] VITALS: BP 130/82; PULSE 54
[2023-04-13] MEDS: ONDANSETRON 4 MG RAPDIS TABLET SL (09:17)
[2023-04-13] MEDS: IBUPROFEN 600 MG TABLET PO (09:17)
[2023-04-13] MEDS: DOCUSATE SODIUM 100 MG CAPSULE PO (09:17)
[2023-04-13 09:35] VITALS: RESP 18; TEMP 36.8
[2023-04-13] MEDS: BUPRENORPHINE HCL 2 MG TAB SUBL 16 MG SL (13:00)
[2023-04-13 17:03] VITALS: BP 125/82; PULSE 56
[2023-04-14 01:23] VITALS: BP 109/61; PULSE 60; RESP 16; TEMP 36.6
[2023-04-14] MEDS: IBUPROFEN 600 MG TABLET PO (01:27)
[2023-04-14] MEDS: DOCUSATE SODIUM 100 MG CAPSULE PO ×2 (01:27→08:58)
--- NOTE | 2023-04-14 07:58 | P.OBPN_ITS ---
OB - PN: Subj Subjective Patient comments: no complaints [place] status: doing well Exam Constitutional Vital Signs, click to edit/add: Last Vital Signs Temp 97.8 F 04/14/23 01:23 Pulse 60 04/14/23 01:23 Resp 16 04/14/23 01:23 BP 109/61 04/14/23 01:23 Pulse Ox 98 04/13/23 04:25 O2 Del Method Room Air 04/13/23 04:25 Documenting provider has reviewed patient's vital signs: yes Common normals: no apparent distress Respiratory Common normals: clear to auscultation bilaterally Cardio Common normals: regular rate and regular rhythm GI Common normals: Normal to inspection, nondistended, normoactive bowel sounds present Extremity Common normals: no clubbing, cyanosis or edema and no calf tenderness OB - PN: A/P Plan - Vaginal Delivery day: 1 Plan: routine care, discharge home and follow up 6 weeks Time Spent with Patient Time: Total time spent is greater than 50% in coordination of care (as documented) at patient's floor/unit and/or counseling patient: Total time spent with greater than 50% in coordination of care (as documented) at patient's floor/unit and/or counseling patient: less than 15 minutes
[2023-04-14 08:30] VITALS: RESP 18
[2023-04-14 09:02] VITALS: BP 134/73; PULSE 66
[2023-04-14 09:22] VITALS: TEMP 36.6
--- NOTE | 2023-04-14 09:47 | SWNOTE1 ---
SW met with pt due to positive THC and Buprenorphine drug screen. Pt does have her medical marijuana card. She does use edibles. Pt also is prescribed subutex from [facility], 8mg 2x daily. She does not plan on being weaned off at this time and as been on it for 7 years. This is her 3rd child, she has a 6 and 1 1/2 year old at home. In the home is her and father in law. Father in law has apartment on side of the home. Pt let SW know she just had a case closed 3 days ago with CPS. They opened a case fter her fahter in laws apartment was raided. CPS did drug screens on her and also she had to participate in the TASK program as well. CPS was aware she was using marijuana during and the subutex. Pt is going to be and has been in contact with [employer] for a pack and play for baby. She also has WIC. Pt's baby is currently scoring a 5 for SEKOU scores. SW let pt know [facility] CPS will be notified as SW is a mandated [employer] worker. Pt voiced understanding and had no further questions. [facility] CPS called and report was given. HIPPA form filled out and sent to
== END 2023-04-14 13:15 | disposition home or self-care (01) | DRG 560 ==
LOC: FBCO 18:56 → FBC 18:56
PROVIDERS: Admitting Provider Obstetrics & Gynecology; Visit Provider Obstetrics & Gynecology
DX: O99.824 Streptococcus B carrier state complicating childbirth (principal); O99.324 Drug use complicating childbirth; O99.334 Smoking (tobacco) complicating childbirth; F17.200 Nicotine dependence, unspecified, uncomplicated; F12.90 Cannabis use, unspecified, uncomplicated; Z3A.37 37 weeks gestation of pregnancy; Z37.0 Single live birth; O26.893 Other specified pregnancy related conditions, third trimester; Z67.41 Type O blood, Rh negative; Z90.49 Acquired absence of other specified parts of digestive tract
CPT/HCPCS: 36415; 59050; 59410; 80307; 85025; 85027; 86850; 86900; 86901; 96365; 96375; J0290; J0571; J2795; Q0162

== ENCOUNTER 2024-07-06 18:01 | Outpatient (REF) | payer OTHER, SELFPAY ==
--- OUTSIDE RECORDS SUMMARY | 2024-07-06 18:08 | XMS_ITS ---
Author Name Auto Generated Organization [facility] Care Team Providers Care Upper Cutter Name Role Phone OPAL MORRIS Attending Unavailable PROBLEMS No Problem Records Found PROCEDURES No Procedure Records Found RESULTS No Result Records Found ALLERGIES No Allergies Records Found ENCOUNTERS ADMIT/DISCHARGE ACCOUNT NUMBER ADMITTING ENCOUNTER CLASS LOCATION SOURCE 07/06/2024/ 5 [id number] Ambulatory Building:[facility] EPIC PAYERS ENCOUNTER GUARANTOR PAYER SUBSCRIBER SOURCE 07/06/2024 ROSHNI SPRAGUE: [place] [address]Qqs: () Primary Insurance:[employer] MEDICAIDPolicy Number: [id number] Date:2022-04-05 ROSHNI SPRAGUE: [id number] [place] [address] [facility] EPIC
== END 2024-07-06 18:02 | disposition home or self-care (01) ==
LOC: LAB 18:01
PROVIDERS: Visit Provider Physician Assistant
DX: Z01.419 Encounter for gynecological examination (general) (routine) without abnormal findings (principal)
CPT/HCPCS: 87624; 88175

== ENCOUNTER 2024-08-16 10:59 | Outpatient (OUT) | payer OTHER, SELFPAY ==
--- OUTSIDE RECORDS SUMMARY | 2024-08-16 11:10 | XMS_ITS | CCD ---
Author Organization [facility] Care Team Providers Care Ceo Na Name Role Phone NATALIIA, DR EPPERSON Attending [...] Unavailable MISC, DR BRIDGES Primary Care Unavailable MARCOS, DR BERG Attending Unavailable MARCOS, DR BERG Consulting Unavailable MARCOS, DR BERG Admitting Unavailable MARCOS, DR BERG Admitting Unavailable MISC, DR BRIDGES Primary Care Unavailable JULI, DR LEANDRA Whipple Consulting Unavailable MARCOS, DR BERG Attending Unavailable MARCOS, DR BERG Consulting Unavailable KARASIK, DR EPPERSON Admitting Unavailable KARASIK, DR EPPERSON Attending Unavailable MISC, DR BRIDGES Primary Care Unavailable KARASIK, DR EPPERSON Attending Unavailable KARASIK, DR EPPERSON Admitting Unavailable MISC, DR BRIDGES Primary Care Unavailable MARCOS, DR BERG Attending Unavailable JULI, DR LEANDRA Whipple Consulting Unavailable ALAN, DR CASILLAS Primary Care Unavailable MARCOS, DR BERG Admitting Unavailable MARCOS, DR BERG Consulting Unavailable MARCOS, DR BERG Attending Unavailable HOY, DR CASILLAS Primary Care Unavailable MARCOS, DR BERG Consulting Unavailable MARCOS, DR BERG Admitting Unavailable MARCOS, DR BERG Admitting Unavailable HOY, DR CASILLAS Primary Care Unavailable MARCOS, DR BERG Attending Unavailable MISC, DR BRIDGES Primary Care Unavailable MARCOS, DR BERG Attending Unavailable PILAR, JOI R Referring Unavailable MARCOS, DR BERG Admitting Unavailable MARCOS, DR BERG Admitting Unavailable MISC, DR BRIDGES Primary Care Unavailable MARCOS, DR BERG Consulting Unavailable MARCOS, DR BERG Attending Unavailable MARCOS, DR BERG Attending Unavailable HOY, DR CASILLAS Primary Care Unavailable MARCOS, DR BERG Consulting Unavailable MARCOS, DR BERG Admitting Unavailable ZIEBER, DR JASE Kenney Consulting Unavailable MARCOS, DR BERG Admitting Unavailable MISC, DR BRIDGES Primary Care Unavailable MARCOS, DR BERG Consulting Unavailable MARCOS, DR BERG Attending Unavailable Cardoso, Nicole Consulting Unavailable KARASIK, DR EPPERSON Attending Unavailable KARASIK, DR EPPERSON Admitting Unavailable MISC, DR BRIDGES Primary Care Unavailable KARASIK, DR EPPERSON Attending Unavailable KARASIK, DR EPPERSON Consulting Unavailable KARASIK, DR EPPERSON Admitting Unavailable MISC, DR BRIDGES Primary Care Unavailable MARCOS, DR BERG Attending Unavailable WEST, DR LEANDRA Whipple Consulting Unavailable REQUEST, DR RAMOS LISTED Primary Care Unavaila ble MARCOS, DR BERG Admitting Unavailable MARCOS, DR BERG Consulting Unavailable MARCOS, DR BERG Admitting Unavailable MISC, DR BRIDGES Primary Care Unavailable MARCOS, DR BERG Attending Unavailable KARASIK, DR EPPERSON Attending Unavailable KARASIK, DR EPPERSON Admitting Unavailable MISC, DR BRIDGES Primary Care Unavailable MARCOS, DR BERG Consulting Unavailable HOY, DR CASILLAS Primary Care Unavailable MARCOS, DR BERG Admitting Unavailable MARCOS, DR BERG Attending Unavailable MARCOS, DR BERG Consulting Unavailable MISC, DR BRIDGES Primary Care Unavailable MARCOS, DR BERG Attending Unavailable MARCOS, DR BERG Admitting Unavailable AGUBOSIM, FRANCO Consulting Unavailable MARCOS, DR BERG Procedure Practitioner Unavailab le KARASIK, DR EPPERSON Admitting Unavailable KARASIK, DR EPPERSON Attending Unavailable MISC, DR BRIDGES Primary Care Unavailable MARCOS, DR BERG Attending Unavailable HOY, DR CASILLAS Primary Care Unavailable MARCOS, DR BERG Consulting Unavailable MARCOS, DR BERG Admitting Unavailable MISC, DR BRIDGES Primary Care Unavailable MARCOS, DR BERG Attending Unavailable MARCOS, DR BERG Consulting Unavailable MARCOS, DR BERG Admitting Unavailable Marcos DO, Otis Unavailable AYDEE MORRIS Attending Unavailable OTIS RODRÍGUEZ Attending Unavailable Medications Current Medications Medication Drug Class(es) Dates Sig (Normalized) Sig (Original) buprenorphine 8 mg sublingual tablet (6 sources) Partial Opioid Agonist buprenorphine (Subtex) 8 MG 1 (one) time each day at the same time. Active cetirizine hydrochloride 10 mg oral tablet (6 sources) Histamine-1 Receptor Antagonist take 1 tablet by mouth in the morning cetirizine (ZyrTEC) 10 MG tablet Take 10 mg by mouth in the morning. Active drospirenone 4 mg oral tablet (5 sources) Progestin Start: 07-06-2024 End: 08-05-2024 take 1 tablet by mouth once daily Drospirenone (Slynd) 4 MG tablet Indications: Well woman exam with routine gynecological exam Take 4 mg by mouth Daily 28 tablet 11 07/06/2024 08/05/2024 Active ondansetron 4 mg disintegrating oral tablet (6 sources) Serotonin-3 Receptor Antagonist Start: 04-07-2023 take 1 tablet by mouth every eight hours as needed for nausea and vomiting ondansetron ODT (Zofran-ODT) 4 MG disintegrating tablet Indications: Nausea and vomiting, unspecified vomiting type TAKE 1 TABLET (4 MG) BY MOUTH EVERY 8 HOURS NEEDED FOR NAUSEA AND VOMITING 20 tablet 2 04/07/2023 Active pramoxine hydrochloride 10 mg/ml rectal foam (3 sources) Start: 07-06-2024 End: 07-16-2024 pramoxine (Proctofoam) 1 % foam Indications: Well woman exam with routine gynecological exam Insert into the rectum every 2 (two) hours if needed for hemorrhoids for up to 10 days 15 g 07/06/2024 07/16/2024 Active Completed/Discontinued Medications Medication Drug Class(es) Dates Sig (Normalized) Sig (Original) 12 hr buPROPion hydrochloride 150 mg extended release oral tablet (6 sources) Aminoketone Start: 07-05-2023 End: 07-31-2024 take 1 tablet by mouth every twelve hours in the morning buPROPion SR (Wellbutrin SR) 150 MG 12 hr tablet Indications: Third trimester TAKE 1 TABLET (150 MG) BY MOUTH IN THE MORNING 90 tablet 1 07/05/2023 07/31/2024 Discontinued docusate sodium 100 mg oral capsule (6 sources) End: 07-31-2024 docusate sodium (Colace) 100 MG capsule 1 (one) time each day at the same time. 07/31/2024 Discontinued metoclopramide 10 mg oral tablet (5 sources) Dopamine-2 Receptor Antagonist Start: 04-28-2023 End: 07-31-2024 metoclopramide (Reglan) 10 MG tablet Indications: Nausea Take 1 tablet (10 mg) by mouth in the morning and 1 tablet (10 mg) at noon and 1 tablet (10 mg) in the evening and 1 tablet (10 mg) before bedtime. 120 tablet 2 04/28/2023 07/31/2024 Discontinued MV & Min w/FA-DHA ( Adult Gummy/DHA/FA) 0.4-25 MG chewable tablet (6 sources) End: 07-31-2024 MV & Min w/FA-DHA ( Adult Gummy/DHA/FA) 0.4-25 MG chewable tablet as directed Orally 07/31/2024 Discontinued MV & Mi n w/FA-DHA ( Adult Gummy/DHA/FA) 0.4-25 MG chewable tablet as directed Orally Active Problems Active Problems Problem Classification Problem Date Documented Date Episodic/Chronic Contraceptive and procreative management (1 source) Sterilization requested; Translations: [Encounter for sterilization] 07-31-2024 Episodic Menstrual disorders (6 sources) Irregular periods; Translations: [Irregular menstruation, unspecified] Onset: 09-15-2022 09-15-2022 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 (1 source) Other specified trauma to perineum and vulva; Translations: [OTHER SPEC TRAUMA PERINEUM AND VULVA] Onset: 07-14-2021 Episodic Other aftercare (1 source) Other halfway (current) drug therapy; 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] Onset: 07-14-2021 Episodic [...] NONINFLAMMATORY D/O VAGINA] Onset: 03-08-2021 Episodic Other screening for suspected conditions (not [...] OF ] Onset: 05-09-2021 Episodic Substance-related disorders (9 sources) Opioid dependence, in remission; Translations: [Opioid abuse, uncomplicated] Onset: 06-12-2021 09-15-2022 Chronic Substance-related disorders (6 sources) Drug use [...] without hemorrhage, second trimester] Onset: 03-08-2021 Episodic Hemorrhoids (6 sources) Hemorrhoids; Translations: [Unspecified hemorrhoids] Onset: 09-15-2022 09-15-2022 Episodic Immunizations and screening for infectious disease (6 sources) Encounter for screening for human papillomavirus (HPV); Translations: [Encounter for screening for infections with a predominantly sexual mode of transmission] Onset: 12-27-2020 Episodic Other complications of (4 sources) Supervision of with other poor reproductive or obstetric history, unspecified trimester; Translations: [SUP PG OTH POOR REPROD/OB HX UNS TM] Onset: 04-01-2021 Episodic Other and delivery including normal (12 sources) Single live ; Translations: [Encounter for test, result positive] Onset: 12-27-2020 Episodic Residual codes; unclassified (1 source) 19 weeks gestation of ; Translations: [19 WEEKS GESTATION OF ] Onset: 03-08-2021 Episodic Results Test Name Value Interpretation Reference Range Facility HCG ( test) Ql (U)o n 07-31-2024 Interpretation and review of laboratory results Normal [facility] Preg Test, Ur Negative Negative [facility] Urinalysis macro (dipstick) panel (U)on 07-31-2024 Bilirubin, UA Negative Negative - 4(70) +++ mg/dL [facility] Blood, UA Negative Negative - 50 Joni/mcL [facility] Clarity, UA Clear [facility] Color, UA Yellow [facility] Glucose, UA Negative Negative - 1999(110) ++++ mg/dL [facility] Interpretation and review of laboratory results Normal [facility] Ketones, UA Negative Negative - 160(16) ++++ mg/dL [facility] Leukocytes, UA Negative Negative - 500+++ Yoseph/mcL [facility] Nitrite, UA Negative Negative - Positive [facility] pH, UA 5.5 5 - 9 [facility] Protein, UA Negative Negative - 2000(20) ++++ mg/dL [facility] Spec Grav, UA 1.02 1 - 1.03 [facility] Urobilinogen, UA 0.2 0.2 - 12 mg/dL [facility] IGP,APTIMA HPV,AGE GDLNon AGE GDLN ACOG TESTING Note . [facility] Comment on above: TESTS RESULT FLAG UN ITS REF RANGE LAB Clinician Provided Cytology Information Source.............Cervix;Endocervix No. of containers..01 ThinPrep Vial Age Algo ACOG Kate... FLAG LEGEND: L-Low Normal,H-High Normal,LL-Alert Low,HH-Alert High <-Panic Low,>-Panic High,A-Abnormal,AA-Critical Abnormal Performed at: 01 =G [address] [id number] Yancy Sal MD, HPV APTIMA Negative Negative [facility] Comment on above: This nucleic acid am plification test detects fourteen high- risk HPV types (16,18,31,33,35,39,45,51,52,56,58,59,66,68) without differentiation. Performed at: =[address] [id number] Interceptor Operator: Yancy Sal MD, Phone: [phone] Performed at: [address] [id number] Interceptor Operator: Yancy Sal MD, Phone: [phone] IGP, APTIMA HPV, RFX 16/18,45 Note . [facility] Comment on above: TESTS RESULT FLAG UN ITS REF RANGE LAB DIAGNOSIS: 02 NEGATIVE FOR INTRAEPITHELIAL LESION OR MALIGNANCY. THIS SPECIMEN WAS RESCREENED PART OF OUR VETERINARY MEDICINE DOCTOR PROGRAM. Specimen adequacy: 02 Satisfactory for evaluation. Endocervical and/or squamous metaplastic cells (endocervical component) are present. Performed by: 02 Abimael Guajardo, [employer] Orthodontist (ASCP) QC reviewed by: 02 Jennifer Davalos, [employer] Orthodontist (ASCP) . 02 Note: Note 02 The Pap smear is a screening test designed to aid in the detection of premalignant and malignant conditions of the uterine cervix. It is not a diagnostic procedure and should not be used as the sole means of detecting cervical cancer. Both false-positive and false-negative reports do occur. Test Methodology: Note 02 This liquid based ThinPrep(R) pap test was screened with the use of an image guided system. HPV Genotype Reflex Note 02 Criteria not met, HPV Genotype not performed. FLAG LEGEND: L-Low Normal,H-High Normal,LL-Alert Low,HH-Alert High <-Panic Low,>-Panic High,A-Abnormal,AA-Critical Abnormal Performed at: 02 [facility] [address] [place] [address] Yancy Sal MD, BRUSH[facility]SPAT[facility]A [facility]NABINOID (THC) CONFIRMATI ON, URINEon 07-14-2021 Cannabinoid Positive Abnormal [facility] Comment on above: Performed By: #### C T/NGNA #### [facility] [address] [place] [address] Dr. Kamaljit Reich Carboxy [facility] GC/MS Conf >750 Normal Cutoff=10 [facility] Comment on above: Performed By: #### C T/NGNA #### [facility] [address] [place] [address] Dr. Kamaljit Reich ANTIBODY ID PANELon 07-07-19 ANTIBODY ID PANEL Antibody ID Anti-D Normal [facility] Comment on above: Performed By: #### A BID #### [facility] [address] [place] [address] Dr. Kamaljit Reich CBC AUTO DIFFon 07-02-2021 BASO # 0.0 103/ul Normal 0.0-0.1 [facility] Comment on above: Performed By: #### A 1C #### [facility] [address] [place] [address] Dr. Kamaljit Reich Basophils/100 WBC (Bld) 0.3 % Normal 0.2-2.0 [facility] Comment on above: Performed By: #### A 1C #### [facility] [address] [place] [address] Dr. Kamaljit Reich EO # 0.1 103/ul Normal 0.0-0.7 [facility] Comment on above: Performed By: #### A 1C #### [facility] [address] [place] [address] Dr. Kamaljit Reich Eosinophils/100 WBC (Bld) 0.5 % Critically low 0.9-7.0 [facility] Comment on above: Performed By: #### A 1C #### [facility] [address] [place] [address] Dr. Kamaljit Reich Erythrocyte distribution width (RBC) [Ratio] 12.2 % Normal 11.0-15.0 [facility] Comment on above: Performed By: #### A 1C #### [facility] [address] [place] [address] Dr. Kamaljit Reich Hematocrit (Bld) [Volume fraction] 38.6 % Normal 36.0-48.0 [facility] Comment on above: Performed By: #### A 1C #### [facility] [address] [address] [address] Kamaljit Reich Hemoglobin (Bld) [Mass/Vol] 12.5 g/dL Normal 12.0-16.0 [facility] Comment on above: Performed By: #### A 1C #### [facility] [address] [address] [address] Kamaljit Reich IG # 0.06 10e3/ul Critically high 0.00-0.03 [facility] Comment on above: Performed By: #### A 1C #### [facility] [address] [place] [address] Dr. Kamaljit Reich IG % 0.5 % Normal 0.0-0.5 [facility] Comment on above: Performed By: #### A 1C #### [facility] [address] [place] [address] Dr. Kamaljit Reich LYMPH # 1.2 103/ul Normal 1.2-3.8 [facility] Comment on above: Performed By: #### A 1C #### [facility] [address] [place] [address] Dr. Kamaljit Reich Lymphocytes/100 WBC (Bld) 9.8 % Critically low 20.5-60.0 [facility] Comment on above: Performed By: #### A 1C #### [facility] [address] [place] [address] Dr. Kamaljit Reich MANUAL DIFF REQ NO Normal [facility] Comment on above: Performed By: #### A 1C #### [facility] [address] [place] [address] Dr. Kamaljit Reich MCH (RBC) [Entitic mass] 28.2 pg Normal 26.7-34.0 [facility] Comment on above: Performed By: #### A 1C #### [facility] [address] [place] [address] Dr. Kamaljit Reich MCHC (RBC) [Mass/Vol] 32.4 g/dL Normal 29.9-35.2 [facility] Comment on above: Performed By: #### A 1C #### [facility] [address] [address] [address] Kamaljit Reich MCV (RBC) [Entitic vol] 87.1 fL Normal 81.0-99.0 [facility] Comment on above: Performed By: #### A 1C #### [facility] [address] [address] [address] Kamaljit Reich MONO # 0.8 103/ul Normal 0.3-0.8 [facility] Comment on above: Performed By: #### A 1C #### [facility] [address] [place] [address] Dr. Kamaljit Reich Monocytes/100 WBC (Bld) 6.1 % Normal 1.7-12.0 [facility] Comment on above: Performed By: #### A 1C #### [facility] [address] [place] [address] Dr. Kamaljit Reich NEUT # 10.2 103/ul Critically high 1.4-6.5 [facility] Comment on above: Performed By: #### A 1C #### [facility] [address] [place] [address] Dr. Kamaljit Reich Neutrophils/100 WBC (Bld) 82.8 % Critically high 43.0-75.0 [facility] Comment on above: Performed By: #### A 1C #### [facility] [address] [place] [address] Dr. Kamaljit Reich Platelet mean volume (Bld) [Entitic vol] 10.5 fL Normal 9.5-13.5 [facility] Comment on above: Performed By: #### A 1C #### [facility] [address] [place] [address] Dr. Kamaljit Reich PLT 214 103/ul Normal 150-450 [facility] Comment on above: Performed By: #### A 1C #### [facility] [address] [place] [address] Dr. Kamaljit Reich RBC 4.43 106/ul Normal 4.20-5.40 [facility] Comment on above: Performed By: #### A 1C #### [facility] [address] [place] [address] Dr. Kamaljit Reich WBC 12.3 103/ul Critically high 4.0-11.0 [facility] Comment on above: Performed By: #### A 1C #### [facility] [address] [place] [address] Dr. Kamaljit Reich CBC AUTO DIFFon 07-01-2021 BASO # 0.0 103/ul Normal 0.0-0.1 [facility] Comment on above: Performed By: #### A 1C #### [facility] [address] [place] [address] Dr. Kamaljit Reich Basophils/100 WBC (Bld) 0.2 % Normal 0.2-2.0 [facility] Comment on above: Performed By: #### A 1C #### [facility] [address] [place] [address] Dr. Kamaljit Reich EO # 0.0 103/ul Normal 0.0-0.7 [facility] Comment on above: Performed By: #### A 1C #### [facility] [address] [place] [address] Dr. Kamaljit Reich Eosinophils/100 WBC (Bld) 0.5 % Critically low 0.9-7.0 [facility] Comment on above: Performed By: #### A 1C #### [facility] [address] [place] [address] Dr. Kamaljit Reich Erythrocyte distribution width (RBC) [Ratio] 12.4 % Normal 11.0-15.0 [facility] Comment on above: Performed By: #### A 1C #### [facility] [address] [place] [address] Dr. Kamaljit Reich Hematocrit (Bld) [Volume fraction] 38.8 % Normal 36.0-48.0 [facility] Comment on above: Performed By: #### A 1C #### [facility] [address] [place] [address] Dr. Kamaljit Reich Hemoglobin (Bld) [Mass/Vol] 12.8 g/dL Normal 12.0-16.0 [facility] Comment on above: Performed By: #### A 1C #### [facility] [address] [place] [address] Dr. Kamaljit Reich IG # 0.02 10e3/ul Normal 0.00-0.03 [facility] Comment on above: Performed By: #### A 1C #### [facility] [address] [place] [address] Dr. Kamaljit Reich IG % 0.2 % Normal 0.0-0.5 [facility] Comment on above: Performed By: #### A 1C #### [facility] [address] [place] [address] Dr. Kamaljit Reich LYMPH # 1.4 103/ul Normal 1.2-3.8 [facility] Comment on above: Performed By: #### A 1C #### [facility] [address] [place] [address] Dr. Kamaljit Reich Lymphocytes/100 WBC (Bld) 15.6 % Critically low 20.5-60.0 [facility] Comment on above: Performed By: #### A 1C #### [facility] [address] [place] [address] Dr. Kamaljit Reich MANUAL DIFF REQ NO Normal [facility] Comment on above: Performed By: #### A 1C #### [facility] [address] [place] [address] Dr. Kamaljit Reich MCH (RBC) [Entitic mass] 27.7 pg Normal 26.7-34.0 [facility] Comment on above: Performed By: #### A 1C #### [facility] [address] [place] [address] Dr. Kamaljit Reich MCHC (RBC) [Mass/Vol] 33.0 g/dL Normal 29.9-35.2 [facility] Comment on above: Performed By: #### A 1C #### [facility] [address] [place] [address] Dr. Kamaljit Reich MCV (RBC) [Entitic vol] 84.0 fL Normal 81.0-99.0 [facility] Comment on above: Performed By: #### A 1C #### [facility] [address] [place] [address] Dr. Kamaljit Reich MONO # 0.4 103/ul Normal 0.3-0.8 [facility] Comment on above: Performed By: #### A 1C #### [facility] [address] [place] [address] Dr. Kamaljit Reich Monocytes/100 WBC (Bld) 5.0 % Normal 1.7-12.0 [facility] Comment on above: Performed By: #### A 1C #### [facility] [address] [place] [address] Dr. Kamaljit Reich NEUT # 7.0 103/ul Critically high 1.4-6.5 [facility] Comment on above: Performed By: #### A 1C #### [facility] [address] [place] [address] Dr. Kamaljit Reich Neutrophils/100 WBC (Bld) 78.5 % Critically high 43.0-75.0 [facility] Comment on above: Performed By: #### A 1C #### [facility] [address] [place] [address] Dr. Kamaljit Reich Platelet mean volume (Bld) [Entitic vol] 10.7 fL Normal 9.5-13.5 [facility] Comment on above: Performed By: #### A 1C #### [facility] [address] [place] [address] Dr. Kamaljit Reich PLT 228 103/ul Normal 150-450 [facility] Comment on above: Performed By: #### A 1C #### [facility] [address] [place] [address] Dr. Kamaljit Reich RBC 4.62 106/ul Normal 4.20-5.40 [facility] Comment on above: Performed By: #### A 1C #### [facility] [address] [place] [address] Dr. Kamaljit Reich WBC 8.9 103/ul Normal 4.0-11.0 [facility] Comment on above: Performed By: #### A 1C #### [facility] [address] [place] [address] Dr. Kamaljit Reich [facility]04 SARS-CoV-2 (COVID-19) RNA NELY+probe Ql (Unsp spec) Not detected Normal NOT DETECTED [facility] Comment on above: Result Comment: [...] for this test is supported by the [place] of Health and Human Service's declaration that [...] used). Performed By: #### R PRQ #### [facility] [address] [place] [address] Dr. Kamaljit Reich DRUG SCREEN RAPID (URINE)on 07-01-2021 AMP Negative Normal NEGATIVE [facility] Comment on above: Performed By: #### A 1C #### [facility] [address] [place] [address] Dr. Kamaljit Reich BAR Negative Normal NEGATIVE [facility] Comment on above: Performed By: #### A 1C #### [facility] [address] [place] [address] Dr. Kamaljit Reich BUP Positive Abnormal NEGATIVE [facility] Comment on above: Performed By: #### A 1C #### [facility] [address] [place] [address] Dr. Kamaljit Reich BZO Negative Normal NEGATIVE [facility] Comment on above: Performed By: #### A 1C #### [facility] [address] [place] [address] Dr. Kamaljit Reich NOEMI Negative Normal NEGATIVE [facility] Comment on above: Performed By: #### A 1C #### [facility] [address] [place] [address] Dr. Kamaljit Reich CUT-OFFS SEE BELOW Normal [facility] Comment on above: Result Comment: AMP [...] ng/mL Performed By: #### A 1C #### [facility] [address] [place] [address] Dr. Kamaljit Reich DRUG CUT HEADER DRUG CLASS TEST SYSTEM CUT-OFF CONCENTRATIONS ARE FOLLOWS: Normal [facility] Comment on above: Performed By: #### A 1C #### [facility] [address] [place] [address] Dr. Kamaljit Reich mAMP Negative Normal NEGATIVE [facility] Comment on above: Performed By: #### A 1C #### [facility] [address] [place] [address] Dr. Kamaljit Reich MTD Negative Normal NEGATIVE [facility] Comment on above: Performed By: #### A 1C #### [facility] [address] [place] [address] Dr. Kamaljit Reich OPI Negative Normal NEGATIVE [facility] Comment on above: Performed By: #### A 1C #### [facility] [address] [place] [address] Dr. Kamaljit Reich OXY Negative Normal NEGATIVE [facility] Comment on above: Performed By: #### A 1C #### [facility] [address] [place] [address] Dr. Kamaljit Reich PCP Negative Normal NEGATIVE [facility] Comment on above: Performed By: #### A 1C #### [facility] [address] [address] [address] Kamaljit Reich PPX Negative Normal NEGATIVE [facility] Comment on above: Performed By: #### A 1C #### [facility] [address] [place] [address] Dr. Kamaljit Reich TCA Negative Normal NEGATIVE [facility] Comment on above: Performed By: #### A 1C #### [facility] [address] [place] [address] Dr. Kamaljit Reich THC Positive Abnormal NEGATIVE [facility] Comment on above: Performed By: #### A 1C #### [facility] [address] [place] [address] Dr. Kamaljit Reich TYPE AND SCREENon 07-01-2021 TYPE AND SCREEN Negative Normal [facility] Comment on above: Performed By: #### T NS #### [facility] [address] [place] [address] Dr. Kamaljit Reich GROUP B STREP CULTUREon [...] F Tetracycline >=16 R F Normal [facility] Comment on above: Performed By: #### R PRQ #### [facility] [address] [place] [address] Dr. Kamaljit Reich US PREG AMNIOTIC FLUID [...] Date: 2021-06-25 11:28 Normal [facility] US PREG AMNIOTIC FLUID VOLUM Eliezer 06-11-2021 [...] above: Performed By: #### A 1C #### [facility] [address] [address] [address] Kamaljit Reich Glucose [Mass/Vol] 103 mg/dL Normal [facility] Comment on above: Performed By: #### A 1C #### [facility] [address] [address] [address] Kamaljit Reich HbA1c (Bld) [Mass fraction] 5.2 % Normal <=6.0 [facility] Comment on above: Performed By: #### A 1C #### [facility] [address] [address] [address] Kamaljit Reich HEMOGRAM AND PLATELon 2021 Hematocrit (Bld) [Volume fraction] 33.7 % Critically low 36.0-48.0 [facility] Comment on above: Performed By: #### A 1C #### [facility] [address] [place] [address] Dr. Kamaljit Reich Hemoglobin (Bld) [Mass/Vol] 11.0 g/dL Critically low 12.0-16.0 [facility] Comment on above: Performed By: #### A 1C #### [facility] [address] [place] [address] Dr. Kamaljit Reich MCH (RBC) [Entitic mass] 27.7 pg Normal 26.7-34.0 [facility] Comment on above: Performed By: #### A 1C #### [facility] [address] [place] [address] Dr. Kamaljit Reich MCHC (RBC) [Mass/Vol] 32.6 g/dL Normal 29.9-35.2 [facility] Comment on above: Performed By: #### A 1C #### [facility] [address] [place] [address] Dr. Kamaljit Reich MCV (RBC) [Entitic vol] 84.9 fL Normal 81.0-99.0 [facility] Comment on above: Performed By: #### A 1C #### [facility] [address] [place] [address] Dr. Kamaljit Reich PLT 245 103/ul Normal 150-450 [facility] Comment on above: Performed By: #### A 1C #### [facility] [address] [place] [address] Dr. Kamaljit Reich RBC 3.97 106/ul Critically low 4.20-5.40 [facility] Comment on above: Performed By: #### A 1C #### [facility] [address] [place] [address] Dr. Kamaljit Reich WBC 8.7 103/ul Normal 4.0-11.0 [facility] Comment on above: Performed By: #### A 1C #### [facility] [address] [place] [address] Dr. Kamaljit Reich RHOGAMon 05-16-2021 RHOGAM Status Information Issued Quantity 1 Product ID Rh Immune Globulin Lot Number [id number] Issue Date/Time [id number] [facility] Comment on above: Performed By: #### R PRQ #### [facility] [address] [place] [address] Dr. Kamaljit Reich US PREG BIOPHY W NON STRESSo n 05-12-2021 US PREG BIOPHY W NON STRESS Ultrasound biophysical profile CLINICAL: Evaluate well-being. TECHNIQUE: Dedicated ultrasound imaging of the fetus was performed to include the social professionals's evaluation of biophysical profile. FINDINGS: Comparison: Ultrasound [...] by: NICOLE CARDOSO Date: 2021-05-12 13:13 Normal [facility] US PREG GROWTHon 05-12-2021 US PREG [...] EFW: 3 lbs. 3 oz., 23% FL/AC: 0.680385 FL/BPD: 0.972477 HC/AC: 1.195384 GESTATIONAL AGE: Age by EDC: 30 weeks 2 days QUINN by EDC: 07/19/2021 Age by US: 30 weeks 1 day QUINN by US: 07/20/2021 IMPRESSION: heart rate between 101-127 Normal interval growth Electronically authenticated by: LEANDRA BUSTOS Date: 2021-05-12 11:36 Normal [facility] TYPE AND SCREENon 05-05-2021 TYPE AND SCREEN Negative Normal [facility] Comment on above: Performed By: #### T NS #### [facility] [address] [place] [address] Dr. Kamaljit Reich CHLAMYDIA/GONOCOCCUS NELY (SW AB/URINE/PAPon 05-01-2021 Chlamydia trachomatis, NELY Negative Normal Negative [facility] Comment on above: Performed By: #### C T/NGNA #### [facility] [address] [place] [address] Dr. Kamaljit Reich Neisseria gonorrhoeae, NELY Negative Normal Negative [facility] Comment on above: Performed By: #### C T/NGNA #### [facility] [address] [place] [address] Dr. Kamaljit Reich VAGINITIS/VAGINOSIS DNA PROB Eliezer 04-30-2021 Fernanda species Negative Normal Negative [facility] Comment on above: Performed By: #### A 1C #### [facility] [address] [place] [address] Dr. Kamaljit Reich Gardnerella vaginalis Negative Normal Negative [facility] Comment on above: Performed By: #### A 1C #### [facility] [address] [place] [address] Dr. Kamaljit Reich Trichomonas vaginalis Negative Normal Negative [facility] Comment on above: Performed By: #### A 1C #### [facility] [address] [place] [address] Dr. Kamaljit Reich US PREG PLACENTAon US [...] by: LEANDRA BUSTOS Date: 2021-04-01 16:07 Normal [facility] PAP ACOG PANEL 2: 21 to 29on 03-10-2021 . . Normal [facility] Comment on above: Performed By: #### C T/NGNA #### [facility] [address] [address] [address] Kamaljit Reich Age Gdln ACOG Testing 21-29 [facility] Comment on above: Performed By: #### C T/NGNA #### [facility] [address] [address] [address] Kamaljit Reich DIAGNOSIS: Comment [facility] Comment on above: Result Comment: NEGA TIVE FOR INTRAEPITHELIAL LESION OR MALIGNANCY. THIS SPECIMEN WAS RESCREENED PART OF OUR VETERINARY MEDICINE DOCTOR PROGRAM. Performed By: #### C T/NGNA #### [facility] [address] [address] [address] Kamaljit Reich Methodology: Comment [facility] Comment on above: Result Comment: This liquid based ThinPrep(R) pap test was screened with the use of an image guided system. Performed By: #### C T/NGNA #### [facility] [address] [place] [address] Dr. Kamaljit Reich Note: Comment [facility] Comment on above: Result Comment: The Pap smear is a screening test designed to aid in the detection of premalignant and malignant conditions of the uterine cervix. It is not a diagnostic procedure and should not be used as the sole means of detecting cervical cancer. Both false-positive and false-negative reports do occur. . Performed By: #### C T/NGNA #### [facility] [address] [place] [address] Dr. Kamaljit Reich Performed by: Comment Normal [facility] Comment on above: Result Comment: Christin Abdul, [employer] Orthodontist (ASCP) Performed By: #### C T/NGNA #### [facility] [address] [address] [address] Kamaljit Reich QC reviewed by: Comment Normal [facility] Comment on above: Result Comment: Radha Alejandre, Supervisory [employer] Orth[employer]ist (ASCP) Performed By: #### C T/NGNA #### [facility] [address] [place] [address] Dr. Kamaljit Reich Reflex Criteria: Comment [facility] Comment on above: Result Comment: The HPV DNA reflex criteria were not met with this specimen result therefore, no HPV testing was performed. . Performed By: #### C T/NGNA #### [facility] [address] [place] [address] Dr. Kamaljit Reich Specimen adequacy: Comment Normal [facility] Comment on above: Result Comment: Sati sfactory for evaluation. Endocervical and/or squamous metaplastic cells (endocervical component) are present. Performed By: #### C T/NGNA #### [facility] [address] [place] [address] Dr. Kamaljit Reich CHLAMYDIA/GONOCOCCUS NELY (SW AB/URINE/PAPon 03-07-2021 Chlamydia trachomatis, NELY Negative Normal Negative [facility] Comment on above: Performed By: #### C T/NGNA #### [facility] [address] [place] [address] Dr. Kamaljit Reich Neisseria gonorrhoeae, NELY Negative Normal Negative [facility] Comment on above: Performed By: #### C T/NGNA #### [facility] [address] [place] [address] Dr. Kamaljit Reich VAGINITIS/VAGINOSIS DNA PROB Eliezer 03-06-2021 Fernanda species Negative Normal Negative [facility] Comment on above: Performed By: #### V AGINT #### [facility] [address] [place] [address] Dr. Kamaljit Reich Gardnerella vaginalis Negative Normal Negative [facility] Comment on above: Performed By: #### V AGINT #### [facility] [address] [place] [address] Dr. Kamaljit Reich Trichomonas vaginalis Negative Normal Negative [facility] Comment on above: Performed By: #### V AGINT #### [facility] [address] [place] [address] Dr. Kamaljit Reich US PREG ANATOMY SINGLEon [...] by ultrasound, 13th percentile by expected) FL/AC: 0.959483 FL/BPD: 0.606581 HC/AC: 1.416161 GESTATIONAL AGE: Age by EDC: 20 weeks, 3 days QUINN by EDC: 07/19/2021 Age by current US: 19 weeks, 2 days QUINN by current US: 07/27/2021 IMPRESSION: 1. Single live intrauterine with growth detailed above. 2. Anterior, low-lying placenta. Electronically authenticated by: JASE JONES Date: 2021-03-04 17:10 Normal [facility] HEP B SURFACE ANTIGEN SCREEN on 12-28-2020 HBsAg Screen Negative Normal Negative [facility] Comment on above: Performed By: #### C T/NGNA #### [facility] [address] [address] [address] Kamaljit Reich HEPATITIS C VIRUS AB W/ REFL EX QUANTon 12-28-2020 HCV AB <0.1 Normal 0.0-0.9 [facility] Comment on above: Performed By: #### A 1C #### [facility] [address] [place] [address] Dr. Kamaljit Reich Interpretation: Comment Normal [facility] Comment on above: Result Comment: Nega tive Not infected with HCV, unless recent infection is suspected or other evidence exists to indicate HCV infection. Performed By: #### A 1C #### [facility] [address] [place] [address] Dr. Kamaljit Reich HIV 1 AND 2 WITH REFLEXon HIV Screen 4th Generation wRfx Non-Reactive Normal Non Reactive [facility] Comment on above: Performed By: #### A 1C #### [facility] [address] [place] [address] Dr. Kamaljit Reich RPR QUANTon 12-28-2020 Rapid Plasma Reagin, Quant Non-Reactive Normal NonRea<1:1 [facility] Comment on above: Performed By: #### R PRQ #### [facility] [address] [place] [address] Dr. Kamaljit Reich RUBELLA AB IGGon 12-28-2020 Rubella Antibodies, IgG 1.39 index Normal Immune >0.99 [facility] Comment on above: Result Comment: Non- immune <0.90 Equivocal 0.90 - 0.99 Immune >0.99 Performed By: #### A 1C #### [facility] [address] [place] [address] Dr. Kamaljit Reich CBC AUTO DIFFon 12-27-2020 BASO # 0.0 103/ul Normal 0.0-0.1 [facility] Comment on above: Performed By: #### C T/NGNA #### [facility] [address] [place] [address] Dr. Kamaljit Reich Basophils/100 WBC (Bld) 0.3 % Normal 0.2-2.0 [facility] Comment on above: Performed By: #### C T/NGNA #### [facility] [address] [place] [address] Dr. Kamaljit Reich EO # 0.1 103/ul Normal 0.0-0.7 [facility] Comment on above: Performed By: #### C T/NGNA #### [facility] [address] [place] [address] Dr. Kamaljit Reich Eosinophils/100 WBC (Bld) 1.0 % Normal 0.9-7.0 [facility] Comment on above: Performed By: #### C T/NGNA #### [facility] [address] [place] [address] Dr. Kamaljit Reich Erythrocyte distribution width (RBC) [Ratio] 12.2 % Normal 11.0-15.0 [facility] Comment on above: Performed By: #### C T/NGNA #### [facility] [address] [place] [address] Dr. Kamaljit Reich Hematocrit (Bld) [Volume fraction] 37.7 % Normal 36.0-48.0 [facility] Comment on above: Performed By: #### C T/NGNA #### [facility] [address] [place] [address] Dr. Kamaljit Reich Hemoglobin (Bld) [Mass/Vol] 12.5 g/dL Normal 12.0-16.0 [facility] Comment on above: Performed By: #### C T/NGNA #### [facility] [address] [place] [address] Dr. Kamaljit Reich IG # 0.02 10e3/ul Normal 0.00-0.03 [facility] Comment on above: Performed By: #### C T/NGNA #### [facility] [address] [place] [address] Dr. Kamaljit Reich IG % 0.3 % Normal 0.0-0.5 [facility] Comment on above: Performed By: #### C T/NGNA #### [facility] [address] [place] [address] Dr. Kamaljit Reich LYMPH # 1.3 103/ul Normal 1.2-3.8 [facility] Comment on above: Performed By: #### C T/NGNA #### [facility] [address] [place] [address] Dr. Kamaljit Reich Lymphocytes/100 WBC (Bld) 18.6 % Critically low 20.5-60.0 [facility] Comment on above: Performed By: #### C T/NGNA #### [facility] [address] [place] [address] Dr. Kamaljit Reich MANUAL DIFF REQ NO Normal [facility] Comment on above: Performed By: #### C T/NGNA #### [facility] [address] [place] [address] Dr. Kamaljit Reich MCH (RBC) [Entitic mass] 28.8 pg Normal 26.7-34.0 [facility] Comment on above: Performed By: #### C T/NGNA #### [facility] [address] [place] [address] Dr. Kamaljit Reich MCHC (RBC) [Mass/Vol] 33.2 g/dL Normal 29.9-35.2 [facility] Comment on above: Performed By: #### C T/NGNA #### [facility] [address] [place] [address] Dr. Kamaljit Reich MCV (RBC) [Entitic vol] 86.9 fL Normal 81.0-99.0 [facility] Comment on above: Performed By: #### C T/NGNA #### [facility] [address] [place] [address] Dr. Kamaljit Reich MONO # 0.3 103/ul Normal 0.3-0.8 [facility] Comment on above: Performed By: #### C T/NGNA #### [facility] [address] [place] [address] Dr. Kamaljit Reich Monocytes/100 WBC (Bld) 5.1 % Normal 1.7-12.0 [facility] Comment on above: Performed By: #### C T/NGNA #### [facility] [address] [place] [address] Dr. Kamaljit Reich NEUT # 5.0 103/ul Normal 1.4-6.5 [facility] Comment on above: Performed By: #### C T/NGNA #### [facility] [address] [place] [address] Dr. Kamaljit Reich Neutrophils/100 WBC (Bld) 74.7 % Normal 43.0-75.0 [facility] Comment on above: Performed By: #### C T/NGNA #### [facility] [address] [place] [address] Dr. Kamaljit Reich Platelet mean volume (Bld) [Entitic vol] 10.2 fL Normal 9.5-13.5 [facility] Comment on above: Performed By: #### C T/NGNA #### [facility] [address] [place] [address] Dr. Kamaljit Reich PLT 204 103/ul Normal 150-450 [facility] Comment on above: Performed By: #### C T/NGNA #### [facility] [address] [place] [address] Dr. Kamaljit Reich RBC 4.34 106/ul Normal 4.20-5.40 [facility] Comment on above: Performed By: #### C T/NGNA #### [facility] [address] [place] [address] Dr. Kamaljit Reich WBC 6.7 103/ul Normal 4.0-11.0 [facility] Comment on above: Performed By: #### C T/NGNA #### [facility] [address] [place] [address] Dr. Kamaljit Reich CULTURE URINEon 12-27-2020 CULTURE URINE Culture Observations : LIGHT GROWTH OF MIXED GENITAL MADY. NO POTENTIAL PATHOGENS SEEN. Normal [facility] Comment on above: Performed By: #### U RCX #### [facility] [address] [place] [address] Dr. Kamaljit Reich DIRECT COOMBSon 12-27-2020 DIRECT MARY Negative Normal [facility] Comment on above: Performed By: #### D IRCMB #### [facility] [address] [place] [address] Dr. Kamaljit Reich GLYCOHEMOGLOBIN A1Con 2020 ADA RECOMMENDATION ADA THERAPEUTIC TARGET 6.0 - 7.0 ACTION SUGGESTED > 7.0 Normal [facility] Comment on above: Performed By: #### A 1C #### [facility] [address] [place] [address] Dr. Kamaljit Reich Glucose [Mass/Vol] 100 mg/dL Normal [facility] Comment on above: Performed By: #### A 1C #### [facility] [address] [place] [address] Dr. Kamaljit Reich HbA1c (Bld) [Mass fraction] 5.1 % Normal <=6.0 [facility] Comment on above: Performed By: #### A 1C #### [facility] [address] [place] [address] Dr. Kamaljit Reich PARDEEP BOX TEST PT SEND OUTo n 12-27-2020 SENT TO REF LAB 12/27/2020 Normal [facility] Comment on above: Performed By: #### A 1C #### [facility] [address] [place] [address] Dr. Kamaljit Reich TYPE AND SCREENon 12-27-2020 TYPE AND SCREEN Negative Normal [facility] Comment on above: Performed By: #### T NS #### [facility] [address] [place] [address] Dr. Kamaljit Reich US PREG TVon 12-10-2020 [...] LEANDRA BUSTOS Date: 2020-12-10 14:11 Normal [facility] Vital Signs Date Time Vital Sign Value Performing Clinician Laura mane 07-31-2024 10:54-0400 Body height 170.2 cm [employer] Work Phone: [facility] 07-31-2024 10:54-0400 Body mass index (BMI) [Ratio] 34.63 kg/m2 [employer] Work Phone: [facility] 07-31-2024 10:54-0400 Body weight 100.3 kg Otis Marcos DO Work Phone: [facility] 07-31-2024 10:54-0400 Diastolic blood pressure 74 mm[Hg] Otis Marcos DO Work Phone: [facility] 07-31-2024 10:54-0400 Systolic blood pressure 110 mm[Hg] Otis Marcos DO Work Phone: [facility] 07-06-2024 10:18-0400 Body weight 100.15 kg Aydee SAWANT Work Phone: [facility] 07-06-2024 10:18-0400 Diastolic blood pressure 76 mm[Hg] Aydee SAWANT Work Phone: [facility] 07-06-2024 10:18-0400 Systolic blood pressure 120 mm[Hg] Aydee SAWANT Work Phone: [facility] Healthcare Encounters Encounter Date Encounter Type Care Provider Facility Start: 07-31-2024 End: 07-31-2024 Bamboo flowsheet Otis Marcos DO Work Phone: [facility] Start: 07-31-2024 End: 07-31-2024 Bamboo flowsheet Otis Marcos DO Work Phone: [facility] Start: 07-31-2024 End: 07-31-2024 ambulatory OTIS MARCOS Not Available Start: 07-31-2024 End: 07-31-2024 Office outpatient visit 15 minutes Otis Marcos DO Work Phone: [facility] Comment on above: Pre-operative exam; Request for sterilization Start: 07-31-2024 End: 07-31-2024 Preprocedural examination done Otis Marcos DO Work Phone: [facility] Healthcare Work Phone: Start: 07-06-2024 End: 07-06-2024 Bamboo flowsheet Aydee SAWANT Work Phone: [facility] Start: 07-06-2024 End: 07-12-2024 Bamboo flowsheet Aydee SAWANT Work Phone: [facility] Start: 07-06-2024 End: 07-12-2024 Clinisync Result Encounter Aydee SAWANT Work Phone: [facility] Unsolicited Start: 07-06-2024 End: 07-06-2024 Patient encounter procedure Aydee SAWANT Work Phone: [facility] Work Phone: Start: 07-06-2024 End: 07-06-2024 Periodic preventive med est patient 18-39 yrs Aydee SAWANT Work Phone: [facility] Comment on above: Well woman exam with routine gynecological exam Start: 07-06-2024 End: 07-06-2024 ambulatory AYDEE MORRIS Not Available Start: 07-09-[address] ZHOU Sanchez lity:H1 Start: 07-02-[address] ZHOU Sanchez lity:H1 Start: 07-01-2021 End: 07-03-2021 Evaluation and management of inpatient DR OTIS RODRÍGUEZ Facility:H1 Start: 06-28-[address] ZHOU Sanchez lity:H1 Start: 06-25-2021 End: 06-25-[address] OTIS RODRÍGUEZ Facility:H1 Start: 06-25-2021 End: 06-25-[address] ZHOU WILLIAM Facility:H1 Start: 06-22-[address] ZHOU Sanchez lity:H1 Start: 06-18-[address] ZHOU Sanchez lity:H1 Start: 06-14-[address] ZHOU Sanchez lity:H1 Start: 06-11-2021 End: 06-11-[address] ZHOU WILLIAM Facility:H1 Start: 06-03-2021 End: 06-04-[address] ZHOU WILLIAM Facility:H1 Start: 05-16-2021 End: 05-16-[address] OTIS RODRÍGUEZ Facility:H1 Start: 05-12-2021 End: 05-12-[address] OTIS RODRÍGUEZ Facility:H1 Start: 05-12-2021 End: 05-13-[address] OTIS RODRÍGUEZ Facility:H1 Start: 05-05-2021 End: 05-06-[address] OTIS RODRÍGUEZ Facility:H1 Start: 04-28-2021 End: 04-28-[address] OTIS RODRÍGUEZ Facility:H1 Start: 04-01-2021 End: 04-02-[address] OTIS RODRÍGUEZ Facility:H1 Start: 03-04-2021 End: 03-04-[address] OTIS RODRÍGUEZ Facility:H1 Start: 03-04-2021 End: 03-05-[address] OTIS RODRÍGUEZ Facility:H1 Start: 02-04-[address] DOCTOR FRANK Facility :H1 Start: 12-27-2020 End: 12-28-[address] DOCTOR FRANK Facility:H1 Start: 12-10-2020 End: 12-11-[address] OTIS RODRÍGUEZ Facility:H1 Procedures Date Procedure Procedure Detail Performing Clinician Start: 07-31-2024 End: 07-31-2024 Urnls dip stick/tablet rgnt non-auto w/o micrscp Otis Rodríguez DO Work Phone: Start: 07-06-2024 IGP,APTIMA HPV,AGE GDLN Aydee SAWANT Work Phone: Start: 07-06-2024 Microscopic observat ion [Identifier] in Cervix by Cyto stain Otis Rodríguez DO Work Phone: Start: 11-10-2022 Microscopic observat ion [Identifier] in Cervix by Cyto stain Aydee SAWANT Work Phone: Start: 07-01-2021 Delivery of Products of Conception, External Approach DR ZHOU WILLIAM Start: 07-01-2021 Repair Vulva, Qm Consultant al Approach DR ZHOU WILLIAM Plan of Treatment Date Care Activity Detail Author Start: 11-28-2027 Screening for malign ant neoplasm of cervix [facility] Healthcare Start: 07-07-2027 Screening for malign ant neoplasm of cervix Pap Smear [facility] Start: 11-10-2025 Screening for malign ant neoplasm of cervix [facility] Start: 12-04-2024 Influenza vaccination Influenz a Vaccine (Season Ended) [facility] Start: 07-31-2024 End: 07-31-2024 Patient encounter procedure 07/31/2024 10:40 AM EDT Consult [facility] [address] [place] [place] [id number] Otis Rodríguez, DO [address] [place] [address] [facility] Start: 07-17-2024 End: 07-17-2024 Patient encounter procedure 07/17/2024 10:20 AM EDT Office Visit [facility] [address] [place] [id number] Otis Rodríguez, DO [address] [place] [address] [facility] Start: 07-06-2024 End: 07-06-2024 Patient encounter procedure 07/06/2024 10:00 AM EDT Office Visit [facility] [address] [place] [place] [address] Aydee Morris PA [address] [place], [place] [id number] Arrived [facility] Comment on above: Arrived Cytology Cervical or vaginal smear or scraping study Pap Smear Pathology and Cytology Routine Well woman exam with routine gynecological exam Ordered: 07/06/2024 [facility] Work Phone: Comment on above: Ordered: 07/06/2024 Human papilloma viru s DNA [Presence] in Unspecified specimen by Probe with amplification HPV DNA probe, amplified Microbiology Routine Well woman exam with routine gynecological exam Ordered: 07/06/2024 [facility] Comment on above: Ordered: 07/06/2024 Payers Date Payer Category Payer Private Health Insurance [facility] MEDICA[facility] [id number] 2022 Medicaid [id number] 1995 Unknown [id number] 2.16.840.1.746292.3.579.2. 593 1994 Unknown [id number] 2.16.840.1.965265.3.579.2. 593 1994 Unknown [id number] 2.16.840.1.851179.3.579.2. 593 1994 Unknown [id number] 2.16.840.1.392810.3.579.2. 593 1994 Unknown [id number] 2.16.840.1.840451.3.579.2. 593 1994 Unknown [id number] 2.16.840.1.540969.3.579.2. 593 1994 Unknown [id number] 2.16.840.1.887290.3.579.2. 593 1994 Unknown [id number] 2.16.840.1.390117.3.579.2. 593 1994 Unknown [id number] 2.16.840.1.359424.3.579.2. 593 1994 Unknown [id number] 2.16.840.1.368713.3.579.2. 593 1994 Unknown [id number] 2.16.840.1.913675.3.579.2. 593 1994 Unknown [id number] 2.16.840.1.881181.3.579.2. 593 1994 Unknown [id number] 2.16.840.1.908174.3.579.2. 593 1994 Unknown [id number] 2.16.840.1.034966.3.579.2. 593 1994 Unknown [id number] 2.16.840.1.017851.3.579.2. 593 1994 Unknown [id number] 2.16.840.1.987372.3.579.2. 593 1994 Unknown [id number] 2.16.840.1.166001.3.579.2. 593 1994 Unknown [id number] 2.16.840.1.222922.3.579.2. 593 1994 Unknown [id number] 2.16.840.1.175383.3.579.2. 593 1994 Unknown [id number] 2.16.840.1.221396.3.579.2. 593 1994 Unknown [id number] 2.16.840.1.929863.3.579.2. 593 1994 Unknown [id number] 2.16.840.1.053957.3.579.2. 593 1994 Unknown [id number] 2.16.840.1.947124.3.579.2. 593 1994 Unknown [id number] 2.16.840.1.738495.3.579.2. 1259 1994 Unknown [id number] 2.16.840.1.011863.3.579.2. 1259 1959 Self-pay [id number] 1959 Unknown [id number] Unknown [id number] 2.16.840.1.509069.3.579.2. 593 Social History Date Type Detail Facility Start: 10-11-2022 Tobacco smoking stat [facility] Never smoked tobacco [facility] Start: 10-11-2022 Tobacco use and exposure Smokeless t obacco non-user [facility] Start: 05-19-2023 End: 07-31-2024 Alcoholic beverage intake Lifetime non-drinker (finding) [facility] Start: 05-19-2023 End: 07-31-2024 History of Social function [facility] Start: 05-19-2023 End: 07-31-2024 Tobacco use panel [facility] Start: 1995 Sex assigned at Female [facility] Start: 09-10-2022 Gender identity Identifies as female gender (finding) [facility] Start: 09-10-2022 Sexual orientation Heterosexual (fin ding) [facility] History of Present illness Narrative 07-31-2024 Jaycee Light - 07/31/2024 10:40 AM EDT Note Date & Type Note Facility 07-31-2024 History of Presen t illness Narrative Reason for Appointment: Patient ID: Gretel Villalpando is a 29 y.o. female who presents for Pre-op Visit Patient presents today for Pre Op appointment. Patient is scheduled to undergo Da Miky assisted Bilateral Laparoscopic Salpingectomy on 08/25/[address] Rodríguez at [facility]. MEDICATIONS Current Outpatient Medications Medication Instructions buprenorphine (Subtex) 8 MG Every 24 hours cetirizine (ZYRTEC) 10 mg, Daily ondansetron ODT (Zofran-ODT) 4 MG disintegrating tablet TAKE 1 TABLET (4 MG) BY MOUTH EVERY 8 HOURS NEEDED FOR NAUSEA AND VOMITING Slynd 4 mg, Oral, Daily ALLERGIES No Known Allergies PROBLEMS Active Ambulatory Problems Diagnosis Date Noted Hemorrhoid 09/15/2022 Opioid abuse 09/15/2022 Vaginal delivery 09/15/2022 Irregular periods 09/15/2022 Resolved Ambulatory Problems Diagnosis Date Noted No Resolved Ambulatory Problems Past Medical History: Diagnosis Date BMI 29.0-29.9,adult Encounter for visit History of drug use Irregular bleeding HISTORY PAST MEDICAL HISTORY SOCIAL HISTORY Past Medical History: Diagnosis Date BMI 29.0-29.9,adult Encounter for visit Hemorrhoid History of drug use Irregular bleeding Opioid abuse Vaginal delivery Social History Tobacco Use Smoking status: Never Smokeless tobacco: Never Substance Use Topics Alcohol use: Never Drug use: Yes Types: Marijuana, Other Comment: opiod use/subutex FAMILY HISTORY No family history on file. SURGICAL HISTORY Past Surgical History: Procedure Laterality Date CHOLECYSTECTOMY 2015 PAP SMEAR 03/04/2021 negative REVIEW OF SYSTEMS Review of Systems: Review of Systems Constitutional: Negative. HENT: Negative. Eyes: Negative. Respiratory: Negative. Cardiovascular: Negative. Gastrointestinal: Negative. Genitourinary: Negative. Musculoskeletal: Negative. Skin: Negative. Neurological: Negative. All other systems reviewed and are negative. Hematological: Negative. Endocrine: Negative. Allergic/Immunologic: Negative. OBJECTIVE Objective: Physical Exam Constitutional: Appearance: Normal appearance. She is well-developed. Cardiovascular: Rate and Rhythm: Normal rate and regular rhythm. Pulmonary: Effort: Pulmonary effort is normal. Breath sounds: Normal breath sounds. Abdominal: General: Bowel sounds are normal. There is no distension. Palpations: Abdomen is soft. Tenderness: There is no abdominal tenderness. There is no guarding or rebound. Musculoskeletal: General: No swelling. Normal range of motion. Right lower leg: No edema. Left lower leg: No edema. Neurological: Mental Status: She is alert and oriented to person, place, and time. Skin: General: Skin is warm and dry. Psychiatric: Mood and Affect: Mood normal. Behavior: Behavior normal. Vitals and nursing note reviewed. Exam conducted with a sap bw developer present. Vitals: Estimated body mass index is 34.63 kg/m as calculated from the following: Height as of this encounter: 5' 7 . Weight as of this encounter: 221 lb 1.9 oz. BP: 110/74 Patient's last menstrual period was 07/30/2024. ASSESSMENT & PLAN ICD-10-CM 1. Pre-operative exam Z01.818 POCT , urine manually resulted POCT urinalysis dipstick manually resulted 2. Request for sterilization Z30.2 Pre Op: Patient is doing well but has desire for sterilization. I have discussed conservative management vs. surgical management with the patient in detail and patient desires surgical management at this time. Patient has voiced understanding that a Bilateral Salpingectomy is considered to be permanent and patient will undergo Da Miky assisted Bilateral Laparoscopic Salpingectomy on 08/25/2024. Surgical consents were signed, mmc was reviewed, and patient is to proceed to [facility] OR. Follow Up: Patient is to follow up between 1-2 weeks post op to assess proper healing and recovery from procedure. Documented by Tigist Blair LPN on behalf of: Otis Rodríguez DO documented in this encounter [facility] History of Present illness Narrative 07-06-2024 JESE Diaz - 07/06/2024 10:00 AM EDT Note Date & Type Note Facility 07-06-2024 History of Presen t illness Narrative Reason for Appointment: Patient ID: Gretel Villalpando is a 29 y.o. female who presents for Well Women Visit Patient presents today for Annual Exam. MEDICATIONS Current Outpatient Medications Medication Instructions buprenorphine (Subtex) 8 MG Every 24 hours buPROPion SR (WELLBUTRIN SR) 150 mg, Oral, Daily cetirizine (ZYRTEC) 10 mg, Oral, Daily docusate sodium (Colace) 100 MG capsule Every 24 hours metoclopramide (REGLAN) 10 mg, Oral, 4 times daily ondansetron ODT (Zofran-ODT) 4 MG disintegrating tablet TAKE 1 TABLET (4 MG) BY MOUTH EVERY 8 HOURS NEEDED FOR NAUSEA AND VOMITING MV & Min w/FA-DHA ( Adult Gummy/DHA/FA) 0.4-25 MG chewable tablet as directed Orally ALLERGIES No Known Allergies PROBLEMS Active Ambulatory Problems Diagnosis Date Noted Hemorrhoid 09/15/2022 Opioid abuse 09/15/2022 Vaginal delivery 09/15/2022 Irregular periods 09/15/2022 Resolved Ambulatory Problems Diagnosis Date Noted No Resolved Ambulatory Problems Past Medical History: Diagnosis Date BMI 29.0-29.9,adult Encounter for visit History of drug use Irregular bleeding HISTORY PAST MEDICAL HISTORY SOCIAL HISTORY Past Medical History: Diagnosis Date BMI 29.0-29.9,adult Encounter for visit Hemorrhoid History of drug use Irregular bleeding Opioid abuse ([facility]) Vaginal delivery Social History Tobacco Use Smoking status: Never Smokeless tobacco: Never Substance Use Topics Alcohol use: Never Drug use: Yes Types: Marijuana, Other Comment: opiod use/subutex FAMILY HISTORY No family history on file. SURGICAL HISTORY Past Surgical History: Procedure Laterality Date CHOLECYSTECTOMY 2014 PAP SMEAR 03/04/2021 negative REVIEW OF SYSTEMS Review of Systems: Review of Systems Constitutional: Negative. HENT: Negative. Eyes: Negative. Respiratory: Negative. Cardiovascular: Negative. Gastrointestinal: Negative. Genitourinary: Negative. Musculoskeletal: Negative. Skin: Negative. Neurological: Negative. All other systems reviewed and are negative. Hematological: Negative. Endocrine: Negative. Allergic/Immunologic: Negative. OBJECTIVE Objective: Physical Exam Constitutional: Appearance: Normal appearance. She is well-developed. Genitourinary: Vulva normal. Right Adnexa: not tender and no mass present. Left Adnexa: not tender and no mass present. No cervical discharge. Breasts: Breasts are soft. Right: Normal. Left: Normal. HENT: Head: Normocephalic. Nose: Nose normal. Mouth/Throat: Mouth: Mucous membranes are moist. Cardiovascular: Rate and Rhythm: Normal rate and regular rhythm. Pulmonary: Effort: Pulmonary effort is normal. Breath sounds: Normal breath sounds. Abdominal: General: Bowel sounds are normal. There is no distension. Palpations: Abdomen is soft. Tenderness: There is no abdominal tenderness. There is no guarding or rebound. Musculoskeletal: General: No swelling. Normal range of motion. Cervical back: Normal range of motion. Right lower leg: No edema. Left lower leg: No edema. Neurological: General: No focal deficit present. Mental Status: She is alert and oriented to person, place, and time. Skin: General: Skin is warm and dry. Psychiatric: Mood and Affect: Mood normal. Behavior: Behavior normal. Vitals and nursing note reviewed. Exam conducted with a sap bw developer present. Vitals: There is no height or weight on file to calculate BMI. BP: 120/76 No LMP recorded. ASSESSMENT & PLAN ICD-10-CM 1. Well woman exam with routine gynecological exam Z01.419 Pap Smear HPV DNA probe, amplified Annual Exam: Patient presents today for an annual exam. Patient states she is doing well and has no complaints. Pap was obtained without difficulty. Orders Placed This Encounter Procedures HPV DNA probe, amplified Patient desires tubal at this time. We will get her scheduled for the procedure and start slynd until surgery Follow Up: Patient is to return in one year for annual unless needed otherwise. Documented by Shahrzad Lott MA on behalf of: JESE Diaz documented in this encounter [facility] Evaluation note Note Date & Type Note Facility Evaluation note Diagnosis Well woman exam with routine gynecological exam Routine gynecological examination documented in this encounter [facility] Evaluation note Note Date & Type Note Facility Evaluation note Diagnosis Pre-operative exam Unspecified pre-operative examination Request for sterilization documented in this encounter [facility] Summary Purpose Family History No Family History Records FoundNo Family History Records Found Advance Directives No Advanced Directives Records FoundNo Advanced Directives Records Found Additional Source Comments INFORMATION SOURCE (unrecogn ized section and content) DATE CREATED AUTHOR 07/15/2021 [facility] DATE CREATED AUTHOR AUTHOR'S ORGANIZ ATION 07/31/2024 [facility] EPIC Care Teams (unrecognized sec tion and content) Ceo Na Relationship Specialty Start Date End Date Otis Rodríguez, DO [address] [place] [address] PCP [facility] 10/04/23 Ceo Na Relationship Specialty Start Date End Date Otis Rodríguez DO [address] [place] [address] PCP [facility] 10/04/23 Ceo Na Relationship Specialty Start Date End Date Otis Rodríguez DO [address] [place] [address] PCP [facility] 10/04/23 Ceo Na Relationship Specialty Start Date End Date Otis Rodríguez DO [address] [place] [address] PCP - [facility] 10/04/23 Reason for Visit (unrecogniz ed section and content) Reason Comments Well Women Visit Reason Comments Pre-op Visit FOR RECORDS PERTAINING TO PATIENTS WHO ARE [...] BE BASED ON THE PRIMARY CLINICAL RECORDS. [employer] [facility]. provides no warranty or guarantee of the accuracy or completeness of information in this document.
--- NOTE | 2024-08-16 11:21 | XR_ITS ---
[address] [address] Patient Name: ROSHNI ALEJANDRE MRN: [id number] date: 1995 Sex: F Assigned Patient Location: [facility] Current Patient Location: [facility] Accession/Order Number: [id number] Exam Date: 08/16/2024 15:08 Report Date: 08/16/2024 15:09 At the request of: OTIS THOMPSON DO Procedure: XR chest 2V XR chest 2V 08/16/2024 11:50 AM SIGNS AND SYMPTOMS: ^Preop exam ^N PROTOCOL: Frontal and lateral radiographs of the chest COMPARISON: 11/05/2013 FINDINGS: The trachea is midline. The heart and mediastinal structures are within normal limits. The lung parenchyma is clear. The bony thorax is intact. XR/XR chest 2V IMPRESSION: No acute cardiopulmonary pathology. Impression dictated by: Holland Juan M.D. 08/16/2024 3:09 PM Dictation Location: [employer] Electronically authenticated by: [id number] Y Date: 08/16/2024 15:09
== END 2024-08-16 11:00 | disposition home or self-care (01) ==
LOC: PST 11:00
PROVIDERS: Visit Provider Obstetrics & Gynecology
DX: Z01.810 Encounter for preprocedural cardiovascular examination (principal)
CPT/HCPCS: 71046

== ENCOUNTER 2024-08-25 07:42 | Day surgery (SDC) | payer OTHER, SELFPAY ==
--- OUTSIDE RECORDS SUMMARY | 2024-07-31 10:41 | XMS_ITS ---
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 Name Role Phone OPAL MORRIS Attending Unavailable OTIS THOMPSON Attending Unavailable PROBLEMS No Problem Records Found PROCEDURES No Procedure Records Found RESULTS No Result Records Found ALLERGIES No Allergies Records Found ENCOUNTERS ADMIT/DISCHARGE ACCOUNT NUMBER ADMITTING ENCOUNTER CLASS LOCATION SOURCE 07/31/2024/ 5 [id number] Ambulatory Building:[facility] EPIC 07/06/2024/ 5 [id number] Ambulatory Building:[facility] EPIC PAYERS ENCOUNTER GUARANTOR PAYER SUBSCRIBER SOURCE 07/31/2024 ROSHNI SPRAGUE: [place] [address]Fbk: () Primary Insurance:[employer] MEDICAIDPolicy Number: [id number] Date:2022-04-05 ROSHNI SPRAGUE: [id number] [place] [address] [facility] EPIC 07/06/2024 ROSHNI SPRAGUE: [place] [address]Rog: () Primary Insurance:[employer] MEDICAIDPolicy Number: [id number] Date:2022-04-05 ROSHNI SPRAGUE: [id number] [place] [address] [facility] EPIC
[2024-08-16 11:32] VITALS: BP 132/87; PULSE 68; TEMP 36.4; O2SAT 100; BMI 35.2
[2024-08-25] VITALS (10 sets, daily range): BP systolic 116–141; BP diastolic 74–102; PULSE 55–76; TEMP 36.2–36.4; O2SAT 93–100; BMI 37.3
[2024-08-25 07:57] LABS: Basophils Percent Auto 0.5 % (0.2-2.0); Eosinophils Absolute Auto 0.2 10^3/uL (0.0-0.7); Hematocrit 39.9 % (36.0-48.0); Hemoglobin 12.7 g/dL (12.0-16.0); Immature Granulocytes Abs Auto 0.03 10^3/uL (0.00-0.03); Immature Granulocytes Pct Auto 0.5 % (0.0-0.5); Lymphocytes Absolute Auto 2.4 10^3/uL (1.2-3.8); Lymphocytes Percent Auto 37.1 % (20.5-60.0); Mean Corpuscular HGB Conc 31.8 g/dL (29.9-35.2); Mean Corpuscular Hemoglobin 28.4 pg (26.7-34.0); Mean Corpuscular Volume 89.3 fL (81.0-99.0); Mean Platelet Volume 9.6 fL (9.5-13.5); Monocytes Absolute Auto 0.5 10^3/uL (0.3-0.8); Monocytes Percent Auto 7.6 % (1.7-12.0); Neutrophils Absolute Auto 3.4 10^3/uL (1.4-6.5); Neutrophils Percent Auto 51.3 % (43.0-75.0); Platelet Count 201 10^3/uL (150-450); Red Blood Count 4.47 10^6/uL (4.20-5.40); Red Cell Distribution Width 13.5 % (11.0-15.0); White Blood Count 6.6 10^3/uL (4.0-11.0)
[2024-08-25 08:07] LABS: Amphetamine Screen Urine NEGATIVE (NEGATIVE); Barbiturates Screen Urine NEGATIVE (NEGATIVE); Benzodiazepines Screen Urine NEGATIVE (NEGATIVE); Buprenorphine Screen Urine POSITIVE (NEGATIVE); Cannabinoid Screen Urine POSITIVE (NEGATIVE); Cocaine Screen Urine NEGATIVE (NEGATIVE); Methadone Screen Urine NEGATIVE (NEGATIVE); Methamphetamines Screen Urine NEGATIVE (NEGATIVE); Opiate Screen Urine NEGATIVE (NEGATIVE); Oxycodone Screen Urine NEGATIVE (NEGATIVE); Phencyclidine Screen Urine NEGATIVE (NEGATIVE); Tricyclic Antidepressant Urine NEGATIVE (NEGATIVE)
[2024-08-25] MEDS: LACTATED RINGER'S SOLUTION 1,000 ML 50 ML IV ×2 (08:09→10:33)
[2024-08-25 08:22] LABS: HCG Quantitative <1 mIU/mL
--- NOTE | 2024-08-25 10:35 | PM.ONB ---
Brief Operative Note Date of procedure: 08/25/24 Pre-op diagnosis general: desires permanent sterilization Post-op diagnosis: same as pre-op Procedure: NAME OF PROCEDURE: robotic assisted bilateral laparoscopic salpingectomy PROCEDURE: The patient was taken back to the Operating Room where she was given general anesthesia without difficulty. She was then prepped and draped in the normal sterile fashion after being placed in a dorsal lithotomy position. A wet sponge stick was placed into the patient's vagina. Attention was then turned to the patient's abdomen, where a scalpel was used to make a small infraumbilical incision. The S retractors were then used to dissect the underlying layers until the fascia could be seen. The fascia was then grasped with Adair clamps and tented up. A knife was then used to make a small incision to the fascia. The muscle was identified, at that time two sutures of #0 Vicryl on a GI needle was then used and placed through the fascia. the peritoneum was then identified and entered bluntly. The 10-4 Anthony was then placed into the patient's abdomen. This was confirmed with direct visualization of the bowel, using the laparoscope. The patient's abdomen was then insufflated using approximately 4 liters of CO2 gas. Survey of the patient's abdomen demonstrated ovaries were normal in appearance as well as both tubes and uterus. A second and third rt and lt lateral robotic ports which were 8 mm in size, was then placed after the skin incision was made under direct visualization . the robotic arms were engaged. The patient's tube on the patient's right side was identified and tented up using a grasper, the ligasure apparatus was then used to come across the mesosalpingx from the fimbriated end to the insertion site at the uterus, the tube was then amputated and removed in its entirety. This was done on the contralateral side. The tubes were the removed from the patients abdomen. Excellent hemostasis was noted. The lateral ports were then moved under direct visualization with excellent hemostasis. All instruments were removed from the patient's abdomen. The fascia was closed using the #0 Vicryl on GI needle. The skin was closed using 4-0 Vicryl subcuticularly. All instruments were removed from the patient's vagina as well. The patient was taken out of the dorsal lithotomy position and placed in the supine position and taken to recovery in stable condition. Sponge, lap and needle counts were correct x2. Anesthesia: OKSANAA Surgeon: Eric Rodríguez Nursing Service Administrator: Jodee Swift Estimated blood loss (mL): 5 Pathology: other (tubes) Condition: stable Disposition: PACU Urinary Catheter Management Urinary Catheter Management Urethral: Cath placed during this visit: no
[2024-08-25] MEDS: HYDROMORPHONE HCL 0.5 MG/0.5 ML SYRINGE IV (11:11)
[2024-08-25] MEDS: FAMOTIDINE/PF 20 MG/2 ML VIAL IV (11:17)
--- NOTE | 2024-08-25 11:30 | PC.NURSE ---
Complains of nausea; alcohol pad to nares
--- NOTE | 2024-08-25 11:32 | PC.NURSE ---
States nausea better; spitting up thick clear phlegm
--- NOTE | 2024-08-25 11:34 | PC.NURSE ---
Medicated with Pepcid as ordered by anesthesia
--- NOTE | 2024-08-25 12:24 | PC.NURSE ---
Denies urge to void
[2024-08-25] MEDS: HYDROCODONE/ACET 5-325 MG TABLET 1 TAB PO (12:38)
--- NOTE | 2024-08-25 13:07 | PC.NURSE ---
Up to bathroom and voids clear yellow without difficulty
== END 2024-08-25 12:55 | disposition home or self-care (01) ==
PROVIDERS: Visit Provider Obstetrics & Gynecology
PROC: (CPT 840; principal; 2024-08-25 08:55)
DX: Z30.2 Encounter for sterilization (principal); Z90.49 Acquired absence of other specified parts of digestive tract; E06.3 Autoimmune thyroiditis
CPT/HCPCS: 58661; 36415; 80307; 84702; 85025; 88302; J0131; J1100; J1171; J1885; J2250; J2405; J2704; J3010; J3490